=== PATIENT | female | born 1995 | race Caucasian/White ===

== ENCOUNTER 2018-04-02 01:27 | Emergency (ER) | payer OTHER, SELFPAY ==
[2018-04-02 01:28] VITALS: BP 112/80; PULSE 57; RESP 18; TEMP 36.3; O2SAT 100; BMI 26.3
--- NOTE | 2018-04-02 01:45 | CT_ITS ---
STUDY: CT ABDOMEN AND PELVIS WITH CONTRAST REASON FOR EXAM: Female, 22 years old. Severe epigastric pain. RADIATION DOSAGE (If Supplied By Facility): CTDIvol = ( 8.03 ) mGy, DLP = ( 653.83 ) mGycm TECHNIQUE: Transaxial images were obtained from the dome of the diaphragm to the symphysis pubis without oral contrast. 100ML ml of Isovue 300 contrast was administered. Sagittal and coronal images were reconstructed. Individualized dose optimization techniques were used for this CT. COMPARISON: 09/11/2013. FINDINGS: The visualized lung bases are unremarkable. The visualized portions of the heart are within normal limits. Normal liver. Normal gallbladder and extrahepatic biliary system. Normal spleen. Normal pancreas. Normal bilateral adrenal glands. Normal right kidney. Normal left kidney. The stomach is markedly distended. There are nonspecific fluid-filled small bowel loops. There is no evidence of small bowel obstruction. There is fecal retention. The appendix is visualized and appears normal. Normal abdominal aorta. Normal inferior vena cava. Normal retroperitoneum. Normal urinary bladder. There is nonspecific air in the region of the cervix. There may be very small umbilical hernia containing fat. Normal osseous structures. CT/Abdomen/Pelvis W IV Cont ONLY IMPRESSION: Distended stomach. Nonspecific fluid-filled small bowel loops without evidence of small bowel obstruction. Enteritis or mild ileus are possible. Electronically Signed: Eduard Phelps MD at 3:36 EDT Tel , Service support ,
[2018-04-02 02:00] LABS: Absolute Lymphocyte Count 1.91 X10^3/ul (0.83-4.51); Absolute Neutrophil Count 9.5 X10^3/uL (2.0-7.7); Basophil# 0.02 X10^3/uL; Basophil% 0.2 % (0-1); Eosinophil# 0.14 X10^3/uL; Eosinophils% 1.2 % (0-5); Hematocrit 37.6 % (37-47); Hemoglobin 12.1 g/dl (12.0-15.0); Lymphocyte # 1.91 X10^3/ul (4.0); Lymphocyte % 15.8 % (19-41); Mean Corp Hgb Conc 32.2 g/gl (32-36); Monocyte# 0.59 X10^3/uL; Monocyte% 4.9 % (0-10); Neutrophil # 9.45 X10^3/uL (2.7-7.7); Neutrophil % 77.8 % (47-70); POSITIVE COUNT NO; POSITIVE DIFFERENTIAL NO; POSITIVE MORPHOLOGY NO; Platelet Count 278 K/mm3 (150-450); RBC Distribution Width CV 14.1 % (11.6-14.6); Red Blood Count 4.32 M/mm3 (4.2-5.4); White Blood Count 12.1 K/mm3 (4.4-11.0)
[2018-04-02] MEDS: 0.9% Normal Saline 1,000 ML 1000 ML IV (02:00)
[2018-04-02] MEDS: Ondansetron 4 MG/2 ML Vial IV (02:00)
[2018-04-02] MEDS: Ketorolac 30 MG/ML Syringe IV (02:00)
[2018-04-02] MEDS: Morphine 4 MG/ML Syringe IV (02:00)
[2018-04-02 02:18] LABS: AST(SGOT) 148 U/L (15-37); Alanine Aminotransfer ALT/SGPT 104 U/L (13-56); Albumin, Serum 3.5 g/dL (3.2-5.0); Alkaline Phosphatase 90 U/L (45-117); Anion Gap 5 (5-15); BUN 11 mg/dL (7-18); Calcium,Total 8.4 mg/dL (8.5-10.1); Chloride 108 mmol/L (98-107); Creatinine, Serum 0.69 mg/dL (0.55-1.02); EST Glomerular Filtration Rate 112 mL/min (>60); Est Glom Filt Rate - Afr Amer 135 mL/min (>60); Globulin 3.5 g/dL (2.2-4.2); Glucose 96 mg/dL (74-106); Lipase 249 U/L (73-393); Potassium 3.7 mmol/L (3.5-5.1); Sodium Level 142 mmol/L (136-145)
[2018-04-02 02:29] LABS: Pregnancy, Serum, hCG Quali. NEGATIVE Negative (0-9 Nonpreg)
[2018-04-02 03:10] LABS: Mucous, Urine 0 SEEN /hpf (<or=2+); Red Blood Cells-Urine 0 SEEN /hpf (0-5)
[2018-04-02 03:16] LABS: Color, Urine Yellow (Yellow); Glucose, Dipstick Normal (Normal); Ketone-Dipstick Negative (Negative); Leukocyte Esterase-Dipstick 25 /ul (Negative); Nitrite-Dipstick Positive (Negative); Occult Blood-Urine Negative /ul (Negative); Protein-Dipstick 30 mg/dl (Negative); Specific Gravity, Urine 1.015 (1.002-1.030); Urine Bilirubin Dipstick Negative (Negative); Urine Clarity Cloudy (Clear); Urine Urobilinogen Normal (Normal)
[2018-04-02 03:24] LABS: Bacteria 3+ /hpf (None Seen); Squamous Epithelial Cells - UA 0-5 SEEN /hpf (5-10); White Blood Cells 0-5 SEEN /hpf (0-5)
--- NOTE | 2018-04-02 03:54 | ED.DCSUM_ITS ---
- ER Visit Summary Date of Service: 04/02/18 Chief Complaint: [Abdominal pain] History of Present Illness: The patient is a 22 F [who presents the emergency department with abdominal pain that started last night approximately 11 PM. It is sharp stabbing epigastric and bilateral upper quadrants. She has nausea and one episode of vomiting. Bowel movements have been normal. She had sweats with the pain. No urinary symptoms. Last menstrual cycle was 1 week ago. Has a history of gallstones and she has been seen 3 times for similar pain episodes at [facility] and was referred to a surgeon but never followed up.] Physical Examination: [] WN WD NAD PERRL EOMI MMM NECK supple and nontender, no masses RRR no murmur rub or gallop, no peripheral edema, symmetric radial pulses CTAB no respiratory distress ABDOMEN is tender in the epigastric and right upper quadrant positive Torres sign she has voluntary guarding, normal bowel sounds, no distension, no rebound SKIN is warm and dry no rashes mild diaphoresis Alert and Oriented x3, CN II-XII in tact, no motor or sensory deficits, gait normal No lymphadenopathy Test Results: [] Emergency Department Course and Treatment: [Patient was given morphine Zofran and Toradol. Her symptoms resolved. Screening labs show a mild leukocytosis at 12.1. AST and ALT were mildly elevated at 104 and 148. Alk phos was normal. Urine showed positive nitrites and 3+ bacteria but no white blood cells or red blood cells. Patient is not having any urinary symptoms. Urine culture was sent. On reevaluation the patient's symptoms had completely resolved. Her abdomen was soft and nontender. CT of the abdomen and pelvis was obtained and ultrasound was not available and showed significant distention of the stomach and nonspecific fluid within small bowel consistent with mild ileus versus enteritis. Patient will be started on Keflex for bacteria and was given a referral to follow-up with Dr. Argueta. CT of the gallbladder showed no obvious abnormality here. I do not think emergent ultrasound on top a CT is indicated as the patient's symptoms are resolved however I did encourage the importance of follow-up she understands if she gets fever or worsening pain again they should return to the emergency department.] Treatment Plan: [] Disposition: [Discharge] Impression: [Abdominal pain 2 bacturia] This note was generated with [employer] software. It may contain incorrect words, spelling, and punctuation that were not noted in review of the chart prior to signing ED Disposition - Plan for ED Patient: Chief Complaint: Nausea/Vomiting Referrals: NOT,DEFINED [Primary Care Provider] -
--- NOTE | 2018-04-02 03:56 | ED.DEP ---
ED Disposition - Plan for ED Patient: Chief Complaint: Nausea/Vomiting Instructions: ED Abdominal Pain Unkn Cause Prescriptions: Cephalexin [Keflex] 500 mg PO Q8 #21 capsule Metoclopramide [Reglan] 10 mg PO TID PRN #10 tablet PRN Reason: Nausea Referrals: Joe Argueta MD [STAFF PHYSICIAN] - 3-5 Days
[2018-04-02 04:06] VITALS: BP 100/73; PULSE 54; PULSE 55; RESP 18; O2SAT 100
[2018-04-02] MEDS: HYDROcodone Bitartrate/Apap 5/325 Tablet PO (04:07)
== END 2018-04-02 04:09 | disposition home or self-care (01) ==
PROVIDERS: Emergency Provider Emergency Medicine
DX: R10.13 Epigastric pain (principal); R10.12 Left upper quadrant pain; R10.11 Right upper quadrant pain; R11.2 Nausea with vomiting, unspecified; R82.71 Bacteriuria
CPT/HCPCS: 74177; 80053; 81001; 83690; 84703; 85025; 87086; 87088; 87186; 96361; 96374; 96375; 99284; J7030; Q9967; A4216; J2405

== ENCOUNTER 2018-07-29 09:03 | Emergency (ER) | payer OTHER, SELFPAY ==
[2018-07-29 09:04] VITALS: BP 133/83; PULSE 58; RESP 18; TEMP 36.6; O2SAT 99; BMI 30.9
--- NOTE | 2018-07-29 09:14 | US_ITS ---
STUDY: ABDOMINAL ULTRASOUND - RIGHT UPPER QUADRANT REASON FOR VISIT: Female, 23 years old. Right upper quadrant pain. TECHNIQUE: Ultrasound evaluation of the right upper quadrant was performed with real-time and static levi-scale imaging. TECHNICAL QUALITY: Limited. Examination limited by bowel gas. COMPARISON: None. FINDINGS: Liver: The liver is slightly enlarged and measures 18.1 cm. There is normal echogenicity of the liver. The bile ducts are within normal limits. There is hepatic color flow. The direction of portal flow is hepatopetal. There is no demonstrated mass lesion. Gallbladder: Normal distended gallbladder. The gallbladder wall measures 3.0 mm. There is a negative sonographic Torres's sign. There is no pericholecystic fluid. There are multiple echogenic structures within the gallbladder, consistent with multiple gallstones. A small amount of sludge is seen within the gallbladder lumen. Common Bile Duct (C.B.D.): The common bile duct measures mm. Pancreas: Normal size of the head, body and tail of the pancreas. There is normal echogenicity of the pancreas. There is no demonstrated pancreatic mass or cyst. Right Kidney: Normal size of the right kidney. The right kidney measures 11.6 cm x 4.7 cm x 4.1 cm. Normal renal cortex. The right cortex measures 1.3 cm. There is no demonstrated renal mass or cyst. There is no right hydronephrosis. US/Gallbladder IMPRESSION: Mild hepatomegaly. Multiple gallstones. Electronically Signed: Stevie Goel MD at 10:45 EDT Tel [phone], Service support ,
--- NOTE | 2018-07-29 09:18 | ED.DCSUM_ITS ---
- ER Visit Summary Date of Service: 07/29/18 Chief Complaint: Pain History of Present Illness: The patient is a 23 F with pain in her right upper quadrant. The pain does not radiate. It started relatively suddenly at 3 AM and has been constant. It feels sharp. Nothing seems to bring it on or make it worse. Nothing seems to make it better. Associated with nausea, but denies other symptoms like fever or jaundice. She has a history of gallstones and similar pain with gallstones in the past. She has not established with a surgeon for this. Denies any abdominal surgeries. Denies any other medical history. Physical Examination: Afebrile and vital signs unremarkable except for heart rate of 58. Patient is tearful and appears uncomfortable. Heart regular. Lungs clear. Abdomen tender in the right upper quadrant. No guarding or rebound. Skin normal in color without pallor or jaundice. Patient is alert and oriented. Test Results: Laboratory studies, urinalysis, and right upper quadrant ultrasound are pending. Emergency Department Course and Treatment: Treated with fluids, morphine, and Zofran while awaiting results. CBC unremarkable. CMP also unremarkable. Lipase normal. test negat marta. Urinalysis unremarkable. Ultrasound shows mild hepatomegaly and multiple gallstones but no evidence of cholecystitis. Patient required multiple pain medications. I advised that she may need a dmission for pain control and surgical consultation. Patient would like to go home and follow-up as an outpatient. At this time, her pain is controlled after a second dose of pain medication. She is not septic. I believe she is appropriate for outpatient follow-up. I advised her to return if she has any new or worsening issues. She was given a prescription for Percocet as well as Zofran and referred to Dr. Argueta who is on-call. Treatment Plan: Above Disposition: Discharged Impression: 1. Biliary colic This note was generated with [employer] dictation software. It may contain incorrect words, spelling, and punctuation that were not noted in review of the chart prior to signing ED Disposition - Plan for ED Patient: Chief Complaint: Abd Pain Referrals: Lenny Edmond MD [Primary Care Provider] -
[2018-07-29] MEDS: Ondansetron 4 MG/2 ML Vial IV (09:26)
[2018-07-29] MEDS: Morphine 4 MG/ML Syringe IV (09:26)
[2018-07-29] MEDS: 0.9% Normal Saline 1,000 ML 1000 ML IV (09:27)
[2018-07-29 09:32] LABS: Absolute Lymphocyte Count 1.83 X10^3/ul (0.83-4.51); Absolute Neutrophil Count 7.7 X10^3/uL (2.0-7.7); Basophil# 0.04 X10^3/uL; Basophil% 0.4 % (0-1); Eosinophil# 0.32 X10^3/uL; Eosinophils% 3.1 % (0-5); Hematocrit 39.4 % (37-47); Hemoglobin 13.2 g/dl (12.0-15.0); Lymphocyte # 1.83 X10^3/ul (4.0); Lymphocyte % 17.6 % (19-41); Mean Corp Hgb Conc 33.5 g/gl (32-36); Mean Corpuscular Hgb 29.1 pg (27.0-32.0); Mean Corpuscular Volume 86.8 fL (81-99); Mean Platelet Vol. 10.2 fl (6.2-12.0); Monocyte# 0.52 X10^3/uL; Neutrophil # 7.68 X10^3/uL (2.7-7.7); Neutrophil % 73.7 % (47-70); Platelet Count 324 K/mm3 (150-450); RBC Distribution Width CV 12.8 % (11.6-14.6); Red Blood Count 4.54 M/mm3 (4.2-5.4); White Blood Count 10.4 K/mm3 (4.4-11.0)
[2018-07-29 09:35] LABS: POSITIVE COUNT NO; POSITIVE DIFFERENTIAL NO; POSITIVE MORPHOLOGY NO
[2018-07-29 09:41] LABS: ALB/GLOB Ratio 1.1 RATIO (0.9-2.4); AST(SGOT) 13 U/L (15-37); Alanine Aminotransfer ALT/SGPT 21 U/L (13-56); Albumin, Serum 4.1 g/dL (3.2-5.0); Alkaline Phosphatase 55 U/L (45-117); Anion Gap 9 (5-15); BUN 13 mg/dL (7-18); BUN/Creat Ratio 15.6 RATIO (10-20); Calcium,Total 9.4 mg/dL (8.5-10.1); Chloride 103 mmol/L (98-107); Creatinine, Serum 0.84 mg/dL (0.55-1.02); EST Glomerular Filtration Rate 89 mL/min (>60); Est Glom Filt Rate - Afr Amer 108 mL/min (>60); Estimated Creatinine Clearance 89.18 ml/min; Globulin 3.9 g/dL (2.2-4.2); Glucose 79 mg/dL (74-106); Lipase 139 U/L (73-393); Potassium 3.4 mmol/L (3.5-5.1); Sodium Level 141 mmol/L (136-145)
[2018-07-29 09:45] LABS: Pregnancy, Serum, hCG Quali. NEGATIVE Negative (0-9 Nonpreg)
[2018-07-29] MEDS: HYDROmorphone 1 MG/ML Syringe IV (10:41)
[2018-07-29 11:18] LABS: Bacteria 0 SEEN /hpf (None Seen); Mucous, Urine 0 SEEN /hpf (<or=2+)
[2018-07-29 11:22] LABS: Color, Urine Yellow (Yellow); Glucose, Dipstick Normal (Normal); Ketone-Dipstick Negative (Negative); Leukocyte Esterase-Dipstick 25 /ul (Negative); Nitrite-Dipstick Negative (Negative); Occult Blood-Urine 50 /ul (Negative); Protein-Dipstick Negative (Negative); Specific Gravity, Urine 1.025 (1.002-1.030); Urine Bilirubin Dipstick Negative (Negative); Urine Clarity Sl. Cloudy (Clear); Urine Urobilinogen Normal (Normal)
[2018-07-29 11:30] LABS: Red Blood Cells-Urine 0-5 SEEN /hpf (0-5); Squamous Epithelial Cells - UA 0-5 SEEN /hpf (5-10); White Blood Cells 0-5 SEEN /hpf (0-5)
--- NOTE | 2018-07-29 12:17 | ED.DEP ---
ED Disposition - Plan for ED Patient: Chief Complaint: Abd Pain Instructions: What are Gallstones? Prescriptions: Oxycodone HCl/Acetaminophen [Percocet 5/325] 1 tab PO Q6H PRN PRN 3 Days #12 tab PRN Reason: Pain Ondansetron [Zofran Odt] 4 mg PO Q8H PRN PRN #10 tab PRN Reason: Nausea Referrals: Joe Argueta MD [STAFF PHYSICIAN] -
[2018-07-29 12:39] VITALS: BP 109/70; PULSE 53; RESP 16; O2SAT 98
== END 2018-07-29 12:40 | disposition home or self-care (01) ==
PROVIDERS: Emergency Provider Emergency Medicine; Family Provider Family Medicine; PCP Family Medicine
DX: K80.20 Calculus of gallbladder without cholecystitis without obstruction (principal); R16.0 Hepatomegaly, not elsewhere classified
CPT/HCPCS: 76705; 80053; 81001; 83690; 84703; 85025; 96361; 96374; 96375; 99283; J7030; A4216; J2405

== ENCOUNTER 2018-08-17 11:37 | Day surgery (SDC) | payer OTHER, SELFPAY ==
--- NOTE | 2018-08-17 | GALL_PTH ---
PATIENT: JESSICA IRELAND [place] [facility] [place][id number] AGE/SX: 23/F ROOM: RE08/17/[address]: Dr. Joe Argueta MD : [id number] BED: DIS: 08/17/2018 SPEC #: [id number] RECD: 08/17/18 16:13 STATUS: LULU REKaycee #: [id number] POLLY: 08/17/18 00:[address]: Joe Argueta DEPT: SURGICAL PATHOLOGY RECD BY: Favian Martinez ENTERED: 08/18/18 08:10 SP TYPE: VINCENT PLATT DR: Dr. Lenny Edmond MD Tissues: Gallbladder, NOS Procedures: Surgery Specimen Level III HEADER OPERATION: Laparoscopic cholecystectomy PRE-OP DIAGNOSIS: Chronic cholecystitis with calculus TISSUE SUBMITTED: Gallbladder MICROSCOPIC DIAGNOSIS Gallbladder: Chronic cholecystitis and cholelithiasis. SJ:brenton 08/19/18 MICROSCOPIC DESCRIPTION Slides are reviewed. GROSS DESCRIPTION Received is one container labeled with the patient's name and designated gallbladder. The specimen consists of a gallbladder measuring 8.5 cm in length and up to 3.5 cm in diameter. The external surface is pink-escalante, smooth and glistening for the most part. Focally it is granular, hemorrhagic and contains cautery artifact. The gallbladder contains thick, escalante mucoid bile and multiple mulberry stones measuring in aggregate 3 x 3 x 1.5 cm and 0.3 to 1.5 cm in greatest dimension. The mucosa is bile-stained and without any mass lesions. The gallbladder wall measures up to 0.2 cm in thickness. Atlassian Administrator sections from the gallbladder and the cystic duct are submitted in one cassette. / SJ:brenton 08/18/18 TC:3 CPT: 02443
--- NOTE | 2018-08-17 11:50 | EKG12_ITS ---
Test Reason : PRE OP Blood Pressure : / mmHG Vent. Rate : 053 BPM Atrial Rate : 053 BPM P-R Int : 130 ms QRS Dur : 088 ms QT Int : 408 ms P-R-T Axes : 006 048 025 degrees QTc Int : 382 ms Sinus bradycardia Otherwise normal ECG Confirmed by EDUARDO NAJERA, VAL ([id number]), acquisitions editor SHERITA ROCHE ([id number]) on 08/20/2018 1:13:06 PM Referred By: Joe Argueta Confirmed By:VAL CLARK MD
[2018-08-17 12:06] LABS: Internal QC Validated? YES +Cl - CLEAR BKGD; Pregnancy, Urine Negative Negative
[2018-08-17 12:10] VITALS: BP 113/63; PULSE 53; RESP 14; TEMP 37.4; O2SAT 100; BMI 31.6
--- NOTE | 2018-08-17 13:50 | RAD_ITS ---
CLINICAL HISTORY: Female, 23 years old. Cholelithiasis. PROCEDURE: CHOLANGIOGRAM - interoperative FLUOROSCOPY TIME (if supplied): ( ) minutes/seconds TECHNIQUE: 89 intraoperative images were performed and presented for interpretation. COMPARISON: Abdominal ultrasound, July 29, 2018. FINDINGS: The provided images demonstrate a catheter within the cystic duct stump. There is injection of contrast within the CBD which is of normal caliber and distensibility. There are no filling defects. There is free spillage of contrast into the duodenum. Later images demonstrate reflux of contrast into the common hepatic and central intrahepatic biliary ducts. These are normal diameter. There is no evidence of stricture or filling defect. Please refer to the operative report for further details. RAD/Cholangiogram/ O R,Initial IMPRESSION: Intraoperative cholangiogram. Electronically Signed: Drake Jordan MD at 17:19 EDT , Service support ,
--- NOTE | 2018-08-17 14:20 | DCINST_ITS ---
Discharge Diet: Light diet - advance as tolerated - if you have questions about your diet instructions, please talk to you doctor. Discharge Activity: May Not Drive - for 1 week or while taking narcotic pain medicine. May shower in (days): 1 Lifting Restrictions: 10 pounds Call your doctor if your incision/area has: Continuous Slow Oozing, Sudden Increased Bleeding, Increased Pain/ Swelling, Increased Redness, Foul Smelling Discharge Call your doctor if you observe: Fever of 101 or Higher Suture Line Care: Avoid Pulling/Pushing, Avoid Pinching/Bending Additional Dressing/Incision Instructions:: Change or remove dressing in 4 days. Leave steri-strips in place for 1 week. Allergies/Adverse Reactions: Allergies No Known Allergies Allergy (Verified 08/14/18 14:17) Medications to take at Discharge Hydrocodone Bitart/Apap 5-325 [[place] 5MG-325MG] 1 tablet PO Q4H PRN PRN 3 Days #10 tablet 08/17/18 The following prescriptions were given: Hydrocodone Bitart/Apap 5-325 [[place] 5MG-325MG] 1 tablet PO Q4H PRN PRN 3 Days #10 tablet PRN Reason: Pain Primary Care Physician: Lenny Edmond MD [Primary Care Provider] - Test Results: Test results from this visit will be discussed in further detail at your follow- up appointment, if applicable. Please Follow Up With: Joe Argueta MD - [phone] When: Call to make an appointment to be seen in about 10 days.
[2018-08-17] MEDS: Cefazolin 2 GM in 0.9% Normal Saline 100 ML IV (14:28)
--- NOTE | 2018-08-17 15:33 | PCM.OPRPT ---
Problem List (1) Chronic cholecystitis with calculus Status: Acute Report of Operation Date of Procedure: 08/17/18 Pre-Operative Diagnosis: Chronic cholecystitis cholelithiasis Post-Operative Diagnosis: Same Surgery/Procedure Performed:: Laparoscopic cholecystectomy with cholangiography Description of Surgical Findings:: Timeout and informed consent was obtained. 23-year-old female taken out from placement table underwent general endotracheal intubation anesthesia. Ancef 2 g given intravenously preoperatively. The abdomen sterilely prepped and draped. 0.5% Marcaine was used as local anesthetic. Throughout the procedure total 30 cc was used. Skin sites were pre-anesthetized. A vertical infraumbilical incision was created. Holding sutures of 0 Vicryl placed. Varies needle inserted. Saline drop test performed. The abdomen was insufflated with CO2 to a pressure of 10 mmHg pressure. Dagmar trocar inserted. 10 lap scope inserted. No concerning trocar injuries. Under visualization there was no evidence any trocar injuries. The abdomen is rapidly inspected no evidence of any superficial abnormalities. Five-minute trochars were placed in the epigastric mid abdomen right upper quadrant. The gallbladder was distracted. Blunt dissection was instituted the infundibulum until clearly the cystic duct cystic artery were clearly identified. A Hem-o-kevin clip was placed on the cystic duct stump incision made in the duct and through a 14-gauge Angiocath the cholangiogram catheter was inserted. Fluoroscopically controlled cholangiograms were obtained demonstrating normal ductal anatomy with free flow into the small bowel. The cholangiogram catheter was removed and an extra-large Hem-o-kevin clip was placed on the cystic duct stump with the addition of a 5 mm clip. The duct was transected inspected the clips appeared to have good position. There has been no bile or stone leak. The cystic artery was clipped twice proximally prior to transecting it. The gallbladder was dissected free from the liver bed. Increased vascular supply from the gallbladder peritoneum and from the liver bed was secured with Hem-o-kevin clips. Gallbladder was completely released. The liver bed was inspected was noted be completely hemostatic. The gallbladder was placed in a retrieval bag. The right upper quadrant was irrigated and aspirated free of excess fluid. The gallbladder was exited at the umbilicus. The fascia at the umbilicus to the patient's body habitus was closed using a grainy needle and 0 Vicryl in a figure 8 suture. There appeared to be good closure through and through was it was carefully inspected intra-abdominally. Then the remaining trochars were removed under visualization. The abdomen was allowed to deflate of the CO2. Skin edges proximate interrupted 4 Monocryl subdermal stitches. Steri-Strips and Telfa and OpSite dressings were applied. Sponge and needle and instrument counts were reported to the surgeon to be correct. Specimens gallbladder. Drains none. Blood loss minimal. The patient was taken to the recovery area in satisfactory condition. Joe Argueta M.D., F.A.C.S. Type of Anesthesia:: General Anesthesiologist: Stacia Ruffin
[2018-08-17] MEDS: Bupivacaine Mpf 0.5% 30 ML VIAL (15:42)
[2018-08-17 15:56] VITALS: BP 101/62; BP 113/63; PULSE 64; RESP 16; TEMP 36.4; O2SAT 94
[2018-08-17 16:00] VITALS: BP 108/75; BP 113/63; PULSE 60; RESP 16; O2SAT 92
[2018-08-17 16:15] VITALS: BP 113/63; BP 95/70; PULSE 59; RESP 16; O2SAT 95
[2018-08-17 16:22] VITALS: BP 105/72; BP 113/63; PULSE 62; RESP 16; TEMP 36.3; O2SAT 94
[2018-08-17] MEDS: HYDROcodone Bitartrate/Apap 5/325 Tablet PO (16:44)
[2018-08-17 17:35] VITALS: BP 107/73; BP 113/63; PULSE 53; RESP 14; TEMP 36.7; O2SAT 97
== END 2018-08-17 17:36 | disposition home or self-care (01) ==
LOC: SDC 11:40 → AC 14:03
PROVIDERS: Family Provider Family Medicine; PCP Family Medicine; Referring Provider Surgery; Visit Provider Surgery
PROC: (CPT 47610; principal; 2018-08-17 13:30)
DX: K80.10 Calculus of gallbladder with chronic cholecystitis without obstruction (principal); K21.9 Gastro-esophageal reflux disease without esophagitis; Z79.899 Other long term (current) drug therapy
CPT/HCPCS: 00790; 47563; 74300; 76000; 81025; 88304; 93005; J7120; J2405

== ENCOUNTER 2018-12-11 21:33 | Emergency (ER) | payer OTHER, SELFPAY ==
[2018-12-11 21:35] VITALS: BP 121/78; PULSE 71; RESP 18; TEMP 36.5; O2SAT 98; BMI 32.7
--- NOTE | 2018-12-11 21:50 | CM.ED ---
SOCIAL WORK NOTE PT PRESENTS PINK SLIPPED BY PD FOR SUICIDAL IDEATION. DISCUSSED WITH DR. PHILIP. CRISIS TO EVALUATE. PERRI CONSTANTINO, NET MAKER, EXCELLENCE MANAGER.
[2018-12-11 22:34] VITALS: RESP 18
[2018-12-11 22:41] LABS: Absolute Lymphocyte Count 2.36 X10^3/ul (0.83-4.51); Absolute Neutrophil Count 4.5 X10^3/uL (2.0-7.7); Basophil# 0.02 X10^3/uL; Basophil% 0.3 % (0-1); Eosinophil# 0.25 X10^3/uL; Eosinophils% 3.2 % (0-5); Hematocrit 38.6 % (37-47); Hemoglobin 12.7 g/dl (12.0-15.0); Lymphocyte # 2.36 X10^3/ul (4.0); Lymphocyte % 30.6 % (19-41); Mean Corp Hgb Conc 32.9 g/gl (32-36); Mean Corpuscular Hgb 28.3 pg (27.0-32.0); Mean Corpuscular Volume 86.2 fL (81-99); Monocyte# 0.52 X10^3/uL; Monocyte% 6.8 % (0-10); Neutrophil # 4.54 X10^3/uL (2.7-7.7); POSITIVE COUNT NO; POSITIVE DIFFERENTIAL NO; POSITIVE MORPHOLOGY NO; Platelet Count 304 K/mm3 (150-450); RBC Distribution Width CV 12.8 % (11.6-14.6); RBC Distribution Width SD 40.4 fl (35.1-43.9); Red Blood Count 4.48 M/mm3 (4.2-5.4); White Blood Count 7.7 K/mm3 (4.4-11.0)
[2018-12-11 22:50] LABS: Anion Gap 6 (5-15); BUN 9 mg/dL (7-18); BUN/Creat Ratio 16.3 RATIO (10-20); Calcium,Total 8.2 mg/dL (8.5-10.1); Chloride 108 mmol/L (98-107); Creatinine, Serum 0.55 mg/dL (0.55-1.02); EST Glomerular Filtration Rate 143 mL/min (>60); Est Glom Filt Rate - Afr Amer 173 mL/min (>60); Glucose 96 mg/dL (74-106); Sodium Level 138 mmol/L (136-145)
[2018-12-11 23:00] VITALS: RESP 14
[2018-12-11 23:15] LABS: Amphetamine Urine VISTA POSITIVE (<1000 ng/mL); Barbiturate Urine VISTA NEGATIVE (< 200 ng/mL); Benzodiazepine Urine VISTA NEGATIVE (< 200 ng/mL); Cocaine Urine VISTA NEGATIVE (< 300 ng/mL); Ecstacy Urine VISTA NEGATIVE (< 500 ng/mL); Methadone Urine VISTA NEGATIVE (< 300 ng/mL); PCP Urine VISTA NEGATIVE (< 25 ng/mL); THC Urine VISTA POSITIVE (< 50 ng/mL); Vista UDS pH Range 5
--- NOTE | 2018-12-11 23:30 | ED.RN ---
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
[2018-12-11 23:47] LABS: Pregnancy, Serum, hCG Quali. NEGATIVE Negative (0-9 Nonpreg)
--- NOTE | 2018-12-11 23:56 | ED.RN ---
FELY CALLED BACK, SHE WILL BE IN
[2018-12-12] VITALS: RESP 16
--- NOTE | 2018-12-12 00:45 | ED.VISSUMM ---
- ER Visit Summary Date of Service: 12/12/18 Chief Complaint: Reported suicidal ideation History of Present Illness: The patient is a 23 F presenting per police for suicidal ideation. Patient states that she has been fighting with her boyfriend. Today police were called. Her boyfriend stated that she had made a threat to kill herself. Patient denies this. She states she does self-harm to her left leg. She was not trying to kill herself. She has a history of cutting. Tetanus is up-to-date. She states her boyfriend was trying to get back at her by making these comments. She admits to marijuana and heroin use today. Physical Examination: Vitals are stable. Patient is afebrile. Alert no acute distress. HEENT exam is unremarkable. Neck is supple. Lungs are clear and equal bilaterally. Heart is regular rate and rhythm. Abdomen is soft nontender nondistended. Extremities superficial abrasions LLE Skin is warm and dry. No focal neurologic deficit. Depressed affect Remainder of exam is unremarkable. Emergency Department Course and Treatment: CBC, chemistries unremarkable. HCG negative. Tox positive for opiates, amphetamines, THC. Alcohol negative. Discussed with the counseling center for evaluation. Disposition: Per counseling center Impression: Reported suicidal ideation This note was generated with [employer] dictation software. It may contain incorrect words, spelling, and punctuation that were not noted in review of the chart prior to signing ED Disposition - Plan for ED Patient: Referrals: Lenny Edmond MD [Primary Care Provider] -
[2018-12-12 01:00] VITALS: RESP 14
--- NOTE | 2018-12-12 01:43 | ED.RN ---
THIS RN SPOKE WITH GONZALO AT [place] AND WAS INFORMED JESSICA WOULD NOT BE RETURNING TO WORK TONIGHT BUT WOULD BE THERE FOR HER SHIFT O FRIDAY
--- NOTE | 2018-12-12 01:48 | ED.VISSUMM ---
- ER Visit Summary Date of Service: 12/12/18 Chief Complaint: [] History of Present Illness: The patient is a 23 F [] Physical Examination: [] Test Results: [] Emergency Department Course and Treatment: [] Treatment Plan: [] Disposition: [] Impression: [] This note was generated with [employer] dictation software. It may contain incorrect words, spelling, and punctuation that were not noted in review of the chart prior to signing ED Disposition - Plan for ED Patient: Instructions: ED Depression Referrals: Counseling,Center [GROUP OF PHYSICIANS] -
--- NOTE | 2018-12-12 02:06 | ED.RN ---
pt states she talked to her uncle and he is on his way up to the hospital
[2018-12-12 02:07] VITALS: BP 126/85; PULSE 61; RESP 14; O2SAT 100
== END 2018-12-12 02:38 | disposition home or self-care (01) ==
PROVIDERS: Emergency Provider Emergency Medicine; Family Provider Family Medicine; PCP Family Medicine
DX: R45.851 Suicidal ideations (principal); S80.812A Abrasion, left lower leg, initial encounter; X58.XXXA Exposure to other specified factors, initial encounter; Y93.9 Activity, unspecified; Y92.9 Unspecified place or not applicable; Y99.9 Unspecified external cause status; Z91.5 Personal history of self-harm
CPT/HCPCS: 80048; 80307; 80320; 84703; 85025; 99283; G0480

== ENCOUNTER 2019-07-10 19:32 | Emergency (ER) | payer OTHER, SELFPAY ==
[2019-07-10 19:33] VITALS: BP 105/76; PULSE 75; RESP 15; TEMP 37.2; O2SAT 99; BMI 32.5
--- NOTE | 2019-07-10 19:38 | ED.RN ---
WHILE TRIAGING PATIENT, PATIENT DECIDED SHE DIDN'T WANT TO BE SEEN.
--- NOTE | 2019-07-10 19:50 | ED.RN ---
THIS NURSE CONTACTED THE [facility] TO INFORM THEM THE PT HAS DECIDED NOT TO BE SEEN AND HAS LEFT THE HOSPITAL
== END 2019-07-10 19:38 | disposition left against medical advice (07) ==
LOC: ED 19:45
PROVIDERS: Emergency Provider Emergency Medicine; Family Provider Family Medicine; PCP Family Medicine
DX: R07.89 Other chest pain (principal)

== ENCOUNTER 2019-10-11 23:06 | Emergency (ER) | payer MEDICAID, SELFPAY ==
[2019-10-11 23:07] VITALS: BP 117/72; PULSE 110; RESP 15; TEMP 36.6; O2SAT 96; BMI 34.8
--- NOTE | 2019-10-11 23:43 | ED.DCSUM_ITS ---
- ER Visit Summary Date of Service: 10/11/19 Chief Complaint: Right foot pain History of Present Illness: The patient is a 24 F who [facility]. She is 20 weeks . She reports that she has pain to the bottom of her right foot that was present when she woke from a nap at 530 this afternoon. Says sharp pain is 10 on 10 with walking and 4-10 at rest. She is not taking anything for pain. She denies any trauma. No fall, MVA, or change in activity. Review of systems: General: No fever, chills, cold sweats. Cardiovascular: No chest pain, palpitations. Respiratory: No cough, shortness of breath, dyspnea on exertion. Gastrointestinal: No abdominal pain, nausea, vomiting, diarrhea, melena, or hematochezia. Genitourinary: No dysuria, frequency, hematuria. Skin: No rash. Neuro: No headache, numbness, weakness. Physical Examination: Vitals: Stable. Afebrile. General: Well-nourished and well-developed. Head: Normocephalic atraumatic. Neck: Supple, no lymphadenopathy. No JVD. Nontender. Cardiovascular: Regular rate and rhythm. No murmurs. Respiratory: No respiratory distress. Clear to auscultation bilaterally. Abdominal: Soft, nontender, nondistended, normal bowel sounds. No guarding, rebound, or peritoneal signs. Back: Nontender. Extremities: Moderate diffuse tenderness outpatient over the plantar surface of her right foot. No contusion or soft tissue swelling. She has a 2+ dorsalis pedis pulse. Skin: Normal color, no rash. Neurologic: Alert and oriented ?3. Cranial nerves II through XII are intact. Normal strength and sensation. Psych: Normal affect. Emergency Department Course and Treatment: Patient was treated with Tylenol. She is resting comfortably. Treatment Plan: Patient be discharged instructions use Tylenol for pain. She is placed in a walking boot. I did discuss symptomatic care plantar fasciitis with her. Follow-up Dr. Frey in 1 week if not improving. Return to the emergency department for any worsening symptoms. Disposition: To home in improved and stable condition. Impression: 1. Plantar fasciitis on right. 2. Second trimester . This note was generated with [employer]ation software. It may contain incorrect words, spelling, and punctuation that were not noted in review of the chart prior to signing ED Disposition - Plan for ED Patient: Disposition: Home or Assisted Living Instructions: Plantar Fasciitis Referrals: Drake Frey DPM [STAFF PHYSICIAN] - 1 Week if not improving
[2019-10-11] MEDS: Acetaminophen 500 MG Tablet 1000 MG PO (23:57)
== END 2019-10-12 00:18 | disposition home or self-care (01) ==
PROVIDERS: Emergency Provider Emergency Medicine; Family Provider Nurse Practitioner Family; PCP Nurse Practitioner Family
DX: O99.89 Other specified diseases and conditions complicating pregnancy, childbirth and the puerperium (principal); M72.2 Plantar fascial fibromatosis; Z3A.20 20 weeks gestation of pregnancy
CPT/HCPCS: 99283

== ENCOUNTER 2019-10-15 10:30 | Inpatient (IN) | payer MEDICAID, SELFPAY ==
[2019-10-15] VITALS (7 sets, daily range): BP systolic 107–139; BP diastolic 54–73; PULSE 63–122; RESP 18–34; TEMP 36.2–37.3; O2SAT 92–98; BMI 34.8; BMI 36.9
--- NOTE | 2019-10-15 11:04 | VDLE_ITS ---
Reason For Study: Chest pain RIGHT LEFT GSV is normal. GSV is normal. CFV is compressible, spontaneous, phasic, CFV is compressible, spontaneous, phasic, competent and demonstrates normal competent, and demonstrates normal augmentation. augmentation. FV is compressible, spontaneous, phasic, FV is compressible, spontaneous, phasic, competent and demonstrates normal competent and demonstrates normal augmentation. augmentation. POP V is compressible, spontaneous, phasic, POP V is compressible, spontaneous, phasic, competent and demonstrates normal competent and demonstrates normal augmentation. augmentation. T/P Trunk is compressible. T/P Trunk is compressible. PTV is compressible. PTV is compressible. RT PerV is compressible. LT PerV is compressible. Procedure Exam performed portable in ED. Unale to visualize SFJ due to pt positioning, pt unable to lay back. A preliminary report was called and/or faxed to [facility]. Interpretation Summary No evidence for acute deep venous thrombosis bilateral lower extremities with patent and compressible bilateral great saphenous veins. Note the limitation of being unable to visualize the saphenofemoral junction due to patient positioning. Otherwise the procedure was performed per protocol Ordering Physician: Prasanth Sky Referring Physician: Julissa Dominguez Performed By: Carla Jordan RVT
--- NOTE | 2019-10-15 11:04 | RAD_ITS ---
STUDY: X-RAY - LEFT HAND REASON FOR EXAM: Female, 24 years old. Swelling. No known injury. TECHNIQUE: 3 view(s) of the hand. COMPARISON: None. FINDINGS: Normal radiocarpal articulation. Normal distal radioulnar joint. Normal visualized carpal bones. Normal carpal articulations Normal carpometacarpal articulation of the thumb. Normal second through fifth carpometacarpal joints. Normal metacarpi. Normal metacarpophalangeal joint of the thumb. Normal interphalangeal joint of the thumb. Normal proximal and distal phalanges of the thumb. Normal metacarpophalangeal joints of the second through fifth fingers. Normal proximal and distal interphalangeal joints of the second through fifth fingers. Normal phalanges of the second through fifth fingers. Diffuse soft tissue swelling overlying the second third fourth and fifth digits. RAD/Hand Min 3 Views IMPRESSION: Soft tissue swelling. Electronically Signed: Stevie Goel, at 11:30 EST , Service support ,
--- NOTE | 2019-10-15 11:04 | EKG12_ITS ---
Test Reason : COUGH Blood Pressure : / mmHG Vent. Rate : 118 BPM Atrial Rate : 118 BPM P-R Int : 116 ms QRS Dur : 078 ms QT Int : 300 ms P-R-T Axes : 013 006 008 degrees QTc Int : 420 ms Sinus tachycardia Minimal voltage criteria for LVH, may be normal variant Borderline ECG Confirmed by FAUSTINO ADAMS ([id number]), subeditor ELIAS RAMOS ([id number]) on 10/20/2019 1:09:24 PM Referred By: Dixie Buck Confirmed By:FAUSTINO ADAMS
--- NOTE | 2019-10-15 11:15 | RAD_ITS ---
STUDY: X-RAY CHEST REASON FOR EXAM: Female, 24 years old. Shortness of breath. TECHNIQUE: Single AP portable view of the chest. COMPARISON: None. FINDINGS: Limited inspiratory effort. Bilateral patchy airspace disease with blunting of both cost phrenic angles. This may represent either CHF or bilateral pneumonia. Follow-up is recommended. Normal size heart. Normal mediastinum and tg. Normal visualized pulmonary arteries. Normal visualized aortic arch and descending thoracic aorta. Normal visualized thoracic spine. Normal visualized ribs, clavicles, and shoulders. There is no demonstrated abnormality of the visualized soft tissue structures of the upper abdomen. RAD/Chest 1 View (Portable) IMPRESSION: Findings suggestive of CHF or bilateral pneumonia. Electronically Signed: Stevie Goel, at 11:30 EST , Service support ,
[2019-10-15] MEDS: Morphine 4 MG/ML Syringe IV (11:50)
[2019-10-15] MEDS: Ondansetron 4 MG/2 ML Vial IV (11:50)
[2019-10-15 12:01] LABS: Absolute Lymphocyte Count 1.86 X10^3/uL (0.83-4.51); Absolute Neutrophil Count 14.8 X10^3/uL (2.0-7.7); Basophil# 0.05 X10^3/uL; Basophil% 0.3 % (0-1); Eosinophil# 0.23 X10^3/uL; Eosinophils% 1.3 % (0-5); Hemoglobin 10.8 g/dL (12.0-15.0); Lymphocyte # 1.86 X10^3/ul (4.0); Lymphocyte % 10.2 % (19-41); Mean Corp Hgb Conc 33.8 g/dL (32-36); Mean Corpuscular Hgb 27.9 pg (27.0-32.0); Mean Corpuscular Volume 82.7 fL (81-99); Mean Platelet Vol. 9.7 fl (6.2-12.0); Monocyte# 1.19 X10^3/uL; Monocyte% 6.5 % (0-10); NRBC Flagged by Analyzer 0 % (0-5); Neutrophil # 14.76 X10^3/uL (2.7-7.7); Neutrophil % 80.4 % (47-70); Platelet Count 333 K/mm3 (150-450); RBC Distribution Width CV 14.5 % (11.6-14.6); RBC Distribution Width SD 43.2 fl (35.1-43.9); Red Blood Count 3.87 M/mm3 (4.2-5.4); White Blood Count 18.3 K/mm3 (4.4-11.0)
[2019-10-15 12:19] LABS: ALB/GLOB Ratio 0.5 RATIO (0.9-2.4); AST(SGOT) 41 U/L (15-37); Alanine Aminotransfer ALT/SGPT 122 U/L (13-56); Albumin, Serum 2.3 g/dL (3.2-5.0); Alkaline Phosphatase 169 U/L (45-117); Anion Gap 5 (5-15); BUN 5 mg/dL (7-18); BUN/Creat Ratio 9.9 RATIO (10-20); Calcium,Total 8.4 mg/dL (8.5-10.1); Chloride 96 mmol/L (98-107); EST Glomerular Filtration Rate 158 mL/min (>60); Est Glom Filt Rate - Afr Amer 191 mL/min (>60); Estimated Creatinine Clearance 148.53 ml/min; Glucose 88 mg/dL (74-106); Potassium 3.8 mmol/L (3.5-5.1); Protein, Total 7.3 g/dL (6.4-8.2); Sodium Level 130 mmol/L (136-145)
--- NOTE | 2019-10-15 12:23 | ED.RN ---
LAB CALLED TO REPORT D-DIMMER OF 2.67. DR. HELLER MADE AWARE.
[2019-10-15 12:24] LABS: D-Dimer Quantitative (DVT/PE) 2.67 FEU/ug/m (0.27-0.49)
--- NOTE | 2019-10-15 12:30 | CT_ITS ---
STUDY: CTA CHEST REASON FOR EXAM: Female, 24 years old. Shortness of breath on deep inspiration. The patient is . She was shielded appropriately. RADIATION DOSAGE (If Supplied By Facility): CTDIvol = ( 15.04 ) mGy, DLP = ( 418.65 ) mGycm TECHNIQUE: The examination was performed with the intravenous administration of IV 100mL Isovue-370. Post-processing of the angiographic images was performed, with multiplanar reformation and 3D reconstruction. Individualized dose optimization techniques were used for this CT. COMPARISON: Comparison is made with prior chest radiograph done earlier in the day. FINDINGS: Normal enhancement of the main pulmonary artery and right and left pulmonary arteries. Normal enhancement of the bilateral peripheral pulmonary arteries. There is no demonstrated pulmonary embolism. Normal thoracic aorta and visualized great vessels. There is no demonstrated aortic dissection. Normal heart and pericardium. Normal mediastinum. Normal hilar regions. Normal visualized trachea and bronchi. The lungs are well expanded. Small right pleural effusion. Fluid is also seen in the right major fissure. Focal infiltration in the right lower lobe as well as the anterior aspect of the right middle lobe. Nodular infiltrate in the peripheral aspect of the right upper lobe measuring 1.2 cm. Patchy infiltrates in the linear segment of the left upper lobe as well as in the left lower lobe. Normal chest wall structures. Normal osseous structures. Normal visualized upper abdomen. CT/CTA Chest W/WO Contrast IMPRESSION: Right pleural effusion with infiltrates in both lungs as described. There is no evidence of pulmonary embolism. Electronically Signed: Stevie Goel, at 13:36 EST , Service support ,
[2019-10-15] MEDS: fentaNYL 100 MCG/2 ML Ampul 50 MCG IV (12:48)
--- NOTE | 2019-10-15 12:56 | ED.RN ---
called pt's mother per pt request to inform that she is in the ED.
[2019-10-15 13:57] LABS: BNP,B-Type NATRIURETIC PEPTIDE 8.6 pg/mL (0-100)
[2019-10-15 14:34] LABS: Lactic Acid 0.6 mmol/L (0.4-1.9)
[2019-10-15] MEDS: Ceftriaxone 1 GM/50 ML BAG IV (14:40)
[2019-10-15] MEDS: Acetaminophen 500 MG Tablet 1000 MG PO (15:10)
--- NOTE | 2019-10-15 17:14 | PCM.HP.OB ---
History Date of Admission: 10/15/19 Final GIA: 02/16/20 Gestational age: 22 Weeks and 2 Days History of this : This is a 24 year-old, G 2P1 at 22.5 weeks gestation presented to the ER with complaints of difficulty breathing underwent a CAT scan which showed bilateral effusions-pneumonia diagnosed. Patient reports had a fever 101 recently at urgent care. Patient reports marijuana use and IVDA with recent history of methamphetamine use. Patient does report history of opioid use as well. Patient is not currently in a treatment program declines placement in a treatment program. Patient reports that her last use of methamphetamine was probably a few weeks ago. Patient denies any vaginal bleeding, leaking fluid or cramping. Medical History: Medical History (Last Reviewed 08/27/18 @ 09:42 by Monica Pablo) Chronic cholecystitis with calculus (Acute) K80.10 Abdominal pain R10.9 Cholelithiasis K80.20 Nausea & vomiting R11.2 Substance abuse F19.10 Surgical History: Surgical History (Last Updated 08/27/18 @ 09:42 by Monica Pablo) S/P laparoscopic cholecystectomy Z90.49 08/20 history wisdom teeth removal Allergies No Known Allergies Allergy (Verified 10/15/19 10:33) Home Medications: Home Medications Folic Acid 0.8 mg PO DAILY 10/11/19 Vits [Prenatabs FA ] 1 tab PO DAILY 10/11/19 Smoking Status: Never smoker Alcohol: None Substance Use Type: Marijuana, Methamphetamine, Opiates Number of Fetus(es): 1 History Past Pregnancies: Past Pregnancies Delivery Date Name GA/ Weeks Outcome Route Wt Infant Sex Labor Length Anesthesia Delivery Location Provider FOB Review of Systems Constitutional: Reports: Fever Respiratory: Reports: Cough Gastrointestinal: Denies: Abdominal Pain Physical Exam Vitals: Vital Signs Temp Pulse Resp BP Pulse Ox 97.2 F L 63 18 139/63 H 98 10/15/19 16:47 10/15/19 16:47 10/15/19 16:47 10/15/19 16:47 10/15/19 16:47 General: Alert, Oriented x3 Extremities:: Other - swelling hands and feet, left middle finger swollen more- no trauma.no pain Neurological: Cranial nerves II-XII grossly intact Assessment/Plan All Active Problems (Last Reviewed 08/27/18 @ 09:42 by Monica Pablo) Chronic cholecystitis with calculus (Acute) This is a 24 year-old, @ 22.5 wks, PNEUMONIA 1) CBC with differential in the morning with hepatitis C 2) discussed rehab facility for recent drug use-patient declines at this time 3) Tylenol for Pain/Fever 4) Medicine to consult for pneumonia 5) IVF to KVO 6) Regular diet, activity as tolerated 7) FHR by doppler daily
--- NOTE | 2019-10-15 17:21 | ED.VISSUMM ---
- ER Visit Summary Date of Service: 10/15/19 Chief Complaint: Shortness of breath History of Present Illness: The patient is a 24 F [facility] She does not have a primary care physician. She is a G1, P0 at 23 weeks of . She reports that she has shortness of breath began 5 days ago. She states that it is severe currently and at worst. Is worsened by exertion or laying flat. She denies any cough. However, she reports she is had a fever to 101 degrees. She reports that she has a right-sided chest pain that is sharp and increased with deep breaths or movement. Is 10 on 10 worsening a 10 currently. Patient reports she is had nausea. She denies any abdominal pain, vomiting, or diarrhea. She has normal movement. No vaginal bleeding. Physical Examination: Vitals: 99.2, 123/54, 122, 18, 96% room air which is not hypoxic. General: Well-nourished and well-developed. Head: Normocephalic atraumatic. Neck: Supple, no lymphadenopathy. No JVD. Nontender. Cardiovascular: Tachycardic regular rhythm. No murmurs. Respiratory: Mild respiratory distress. She has splinting and poor air movement. Her lungs are clear otherwise.. Abdominal: Soft, nontender, nondistended, normal bowel sounds. No guarding, rebound, or peritoneal signs. Gravid uterus. Back: Nontender. Extremities: Nontender, no edema. Edema to the left middle finger. There is mild erythema to her palm just proximal to this. There is no erythema of her finger. No induration or fluctuance. Skin: Normal color, no rash. Neurologic: Alert and oriented ?3. Cranial nerves II through XII are intact. Normal strength and sensation. Psych: Normal affect. Test Results: EKG is sinus tach [address] changes. Troponin is negative. BT COMMUNICATIONS TECHNOLOGIST is 8.6. D-dimer is positive. Influenza is negative. Bilateral lower extremity Dopplers were negative. Lactic acid is 0.6. LFTs show an ALT of 122, AST 41, and alk phos of 169. Albumin is 2.3 and globulin is 5.0. Chem-7 shows a sodium 130, chloride 96, BUN 5, creatinine 0.5, calcium 8.4. CBC shows a white count of 18.3 with an H&H 10.8 32.0, stable neutrophils 80, left sets of 10, immature granulocytes of 1.3%. Clinical Impression(s) from Imaging Studies Hand X-Ray 10/15/19 11:04 IMPRESSION: Soft tissue swelling. Electronically Signed: Stevie Keneverardo, at 11:30 EST , Service support , Chest X-Ray 10/15/19 11:15 IMPRESSION: Findings suggestive of CHF or bilateral pneumonia. Electronically Signed: Stevie Floresmadhu, at 11:30 EST , Service support , Chest CTA 10/15/19 12:30 IMPRESSION: Right pleural effusion with infiltrates in both lungs as described. There is no evidence of pulmonary embolism. Electronically Signed: Stevie Manasa, at 13:36 EST , Service support , Emergency Department Course and Treatment: Patient had an IV placed. She was given a liter normal saline. She was given a dose of morphine and Zofran IV. She continued to complain of pain and was given a dose of fentanyl IV. When things returned she was given a dose of Rocephin and Zithromax IV. The patient's mother reports that she uses heroin. The patient denies this. Treatment Plan: The patient was discussed with Dr. Grover as well as Dr. Arreguin. She will be admitted to the hospital for further evaluation and treatment. Disposition: Admitted in serious condition. Impression: 1. Pneumonia. 2. Second trimester . 3. Heroin abuse. This note was generated with [employer]ation software. It may contain incorrect words, spelling, and punctuation that were not noted in review of the chart prior to signing ED Disposition - Plan for ED Patient: Disposition: Acute Care [facility]
--- NOTE | 2019-10-15 17:21 | NURSING ---
FHT 149 with doppler. Found in RLQ.
[2019-10-15] MEDS: 0.9% Normal Saline 1,000 ML 100 ML IV (17:31)
[2019-10-15 20:19] LABS: Amphetamine Urine VISTA POSITIVE (<1000 ng/mL); Barbiturate Urine VISTA NEGATIVE (< 200 ng/mL); Benzodiazepine Urine VISTA NEGATIVE (< 200 ng/mL); Cocaine Urine VISTA NEGATIVE (< 300 ng/mL); Ecstacy Urine VISTA NEGATIVE (< 500 ng/mL); Methadone Urine VISTA NEGATIVE (< 300 ng/mL); PCP Urine VISTA NEGATIVE (< 25 ng/mL); THC Urine VISTA NEGATIVE (< 50 ng/mL); Vista UDS pH Range 6
--- NOTE | 2019-10-15 21:13 | CON.PCM_ITS ---
Problem List (1) PNA (pneumonia) Status: Acute Qualifiers: Laterality: bilateral (2) Hyponatremia Status: Acute (3) Opioid dependence Status: Chronic (4) Abnormal LFTs Status: Acute (5) Methamphetamine use Status: Chronic (6) Normochromic normocytic anemia Status: Acute (7) Pleurisy Status: Acute Reason for Consult Date of Consultation: 10/15/19 Reason for Consultation: BL PNA History of Present Illness: The patient is a 24 year old F with a PMH of polysubstance abuse who is 23 weeks who presented to the ED at [facility] on 10/15/19 c/o SOB that started about 5 days prior to coming to the ED. She denies a cough. She has chest pain BL with deep breaths. She complained of fevers but denied shaking chills. She additionally complained of nausea but denied abdominal pain, vomiting or diarrhea. She denied sick contacts but she works at [employer]. Vital signs at arrival to the emergency room were temperature 99.2, pulse rate 122, blood pressure 123/54, respiratory rate 18 and she was initially 96% saturated on room air. Respiratory rate later increased to the low 30s and the room air pulse ox dropped to 92%. Heart rate came down to 106 following some fluids. Labs showed an increased white blood cell count at 18.3 with a left shift. Hemoglobin was 10.8 with normochromic normocytic indices and platelets w ere within normal limits. D-dimer was increased at 2.67 likely due to . Sodium was low at 130 and the chloride was low at 96. BUN was 5 and the creatinine is 0.5. Lactic acid was within normal limits at 0.6. Bilirubin is within normal limits but the AST is 41 with an ALT of 122 and an alkaline phosphatase of 169. MRSA nasal screen is negative. Urine drug screen was positive for opiates and amphetamines. The patient was given 4 mg of morphine sulfate in the ER followed by 50 mg of IV fentanyl. She initially denied any intravenous opiate use but did tell the emergency room physician that she used methamphetamine a few weeks ago. She later revealed to me that she uses IV fentanyl daily, approximately 1/2 g. She also regularly uses intravenous methamphetamine. She has been using illegal substances since she was 19 years of age. Her boyfriend, the baby's father, is also addicted to opiates and methamphetamine. They have shared needles in the past but not currently. He has been admitted to the hospital on 10/15/2019 with acute hepatitis. She denies any hx of hepatitis. Past Medical History Past Medical History (Chronic Problems): Chronic Problems (Last Reviewed 10/15/19 @ 21:31 by Gladys Arreguin DO) Opioid dependence (Chronic) Methamphetamine use (Chronic) Medical History: Medical History (Last Reviewed 10/16/19 @ 00:28 by Gladys Arreguin DO) Abdominal pain R10.9 Cholelithiasis K80.20 Nausea & vomiting R11.2 Substance abuse F19.10 Chronic cholecystitis with calculus (Resolved) K80.10 Patient is status post cholecystectomy. 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: - - She is Lives: With Family Smoking Status: Never smoker Tobacco Use: Secondhand Alcohol: None Drugs: - - fentanyl and Methamphetamine - *Family History Maternal Family History: Family History (Last Reviewed 10/16/19 @ 00:28 by Gladys Arreguin DO) Grandmother Breast cancer Diabetes Grandfather Lung cancer Liver cancer Father Diabetes Mother Skin cancer Review of Systems Constitutional: Reports: Fever, Malaise Eyes: Denies: Blurred vision HEENT: Denies: Difficulty Swallowing, Head Aches, Sinus Congestion, Sinus Drainage, Sore Throat Cardiovascular: Reports: Chest Pain - worse with deep inspiration, Edema. Denies: Light Headedness, Palpitations, Syncope Respiratory: Reports: Pleuritic Pain, Shortness of Breath, Shortness of breath at rest, Shortness of breath upon exertion. Denies: Cough, Sputum production, Wheezing Gastrointestinal: Denies: Abdominal Pain, Diarrhea, Nausea, Vomiting Genitourinary: Denies: Dysuria Gynecological: Denies: Vaginal bleeding, Vaginal discharge Musculoskeletal: Denies: Joint Pain, Joint Tenderness Skin: Reports: - - track martínez on the upper extremities. Denies: Rash, Wounds Neurological: Denies: Slurred speech, Confusion, Focal weakness, Headaches, Numbness, Tingling, Seizures Psychiatric: Denies: Anxiety, Depression, Homicidal Ideations, Suicidal Ideations Endocrine: Denies: Hx of Thyroiditis Hematologic/ Lymphatic: Denies: Easy Bruising, Easy Bleeding, Hx of blood clot Patient Problems: Active and Suspected Problems (Last Reviewed 10/15/19 @ 21:31 by Gladys Arreguin DO) PNA (pneumonia) (Acute) Hyponatremia (Acute) Abnormal LFTs (Acute) Normochromic normocytic anemia (Acute) Pleurisy (Acute) - Physical Exam Vitals/I&O's: Vital Signs Temp Pulse Resp BP Pulse Ox 97.2 F L 63 18 139/63 H 98 10/15/19 16:47 10/15/19 16:47 10/15/19 16:47 10/15/19 16:47 10/15/19 16:47 Oxygen Flow Rate (L/min) 2 Oxygen Delivery Method Nasal Cannula Weight: 215 lb 4.8 oz Body Mass Index (BMI) 36.9 Intake and Output for Last 24 Hours 10/13/19 10/14/19 10/15/19 23:59 23:59 23:59 Intake Total 1155 / 1155 Balance 1155 / 1155 General: Alert, Oriented x3 HEENT: Atraumatic, PERRLA, EOMI, Normocephalic Oral: No Gingival or Mucosal Lesions/ Ulcerations, Dry Mucosa Neck: Supple, No JVD, No Nodes, Trachea Midline Lungs: No rhonchi, No wheeze, No rales, Diminished - diminished throughout but, very diminished in the bases. She is tachypneic and hypoventilating with poor air exchange because it hurts. there is no accessory muscle use., - - having CP BL with deep inspiration Cardiovascular: Regular rate, Regular Rhythm, Normal S1, Normal S2, No murmurs, No rub noted, No Gallop Abdomen: Bowel Sounds Present, Soft, Non Tender, Non-Distended, Obese Extremities: No clubbing, No cyanosis, Edema - at the ankles Skin: No rashes, - - has track martínez on both UE's and there are fresh puncture sites and some bruising on the L forearm around the puncture sites. No punctures wounds between the toes. Musculoskeletal: No Muscle Wasting Neurological: Cranial nerves II-XII grossly intact, Neuro grossly intact Psych/Mental Status: Appropriate Microbiology Past 72 Hours 10/15/19 19:40 Urine, Clean Catch Legionella Antigen - Final 10/15/19 19:40 Urine, Clean Catch Streptococcus pneumoniae Antigen (M - Final 10/15/19 12:35 Mucosa - Nose Influenza Types A,B Direct FA (GINA) - Final Laboratory Results 10/15/19 11:43: WBC 18.3 H, RBC 3.87 L, Hgb 10.8 L, Hct 32.0 L, MCV 82.7, MCH 27.9, MCHC 33.8, RDW Std Deviation 43.2, RDW Coeff of Colby 14.5, Plt Count 333, MPV 9.7, Immature Gran % (Auto) 1.300 H, Neut % (Auto) 80.4 H, Lymph % (Auto) 10.2 L, Haskell % (Auto) 6.5, Eos % (Auto) 1.3, Baso % (Auto) 0.3, Absolute Neuts (auto) 14.8 H, Absolute Lymphs (auto) 1.86, Nucleated RBC % 0 10/15/19 11:43: D-Dimer Quant (PE/DVT) 2.67 H* 10/15/19 11:43: Sodium 130 L, Potassium 3.8, Chloride 96 L, Carbon Dioxide 29.0, Anion Gap 5, BUN 5 L, Creatinine 0.50 L, Estim Creat Clear Calc 148.53, Est GFR (MDRD) Af Amer 191, Est GFR (MDRD) Non-Af 158, BUN/Creatinine Ratio 9.9 L, Glucose 88, Calcium 8.4 L, Total Bilirubin 0.50, AST 41 H, ALT 122 H, Alkaline Phosphatase 169 H, Troponin I < 0.015, Total Protein 7.3, Albumin 2.3 L, Globulin 5.0 H, Albumin/Globulin Ratio 0.5 L 10/15/19 11:43: B-Natriuretic Peptide 8.6 10/15/19 14:00: Lactic Acid 0.6 10/15/19 19:40: Urine Opiates Screen POSITIVE H, Urine Methadone Screen NEGATIVE, Ur Barbiturates Screen NEGATIVE, Ur Phencyclidine Scrn NEGATIVE, Ur Amphetamines Screen POSITIVE H, U Methamphetamin-MDMA NEGATIVE, U Benzodiazepi case Scrn NEGATIVE, Urine Cocaine Screen NEGATIVE, U Cannabinoids Screen NEGATIVE, Ur Drug Screen Comment Current Medications Acetaminophen (Tylenol) 500 - 1,000 mg PO Q6H PRN PRN PRN Reason: Mild pain or fever >99.6F Al Hydroxide/Mg Hydroxide (Mylanta Ii) 30 ml PO Q6H PRN PRN PRN Reason: dyspesia Buprenorphine HCl (Buprenorphine Hcl) 2 mg SL Q2H PRN PRN PRN Reason: tachycardia/diaphoresis, vomit Clonidine (Catapres) 0.1 mg PO Q2H PRN PRN PRN Reason: Hot/Cold Sweats or Anxiety Folic Acid (Folic Acid) 1 mg PO DAILY@0800 [facility] Hydroxyzine Pamoate (Vistaril Pamoate Capsule) 25 mg PO Q6H PRN PRN PRN Reason: Mild Anxiety Sodium Chloride () 1,000 mls @ 100 mls/hr IV .Q10H [facility] Last Admin: 10/15/19 17:31 Dose: 100 mls/hr Documented by: Loperamide HCl (Imodium) 2 - 4 mg PO UD PRN PRN Reason: LOOSE STOOLS Multivit/Folic Acid/Iron (Prenatabs Fa) 1 tablet PO DAILY@0800 [facility] Senna (Senokot) 1 tablet PO QHS PRN PRN Reason: Constipation Sodium Chloride () 10 - 40 ml IV UD PRN PRN Reason: SALINE FLUSH Assessment/Plan All Active Problems (Last Reviewed 10/15/19 @ 21:31 by Gladys Arreguin DO) PNA (pneumonia) (Acute) Hyponatremia (Acute) Abnormal LFTs (Acute) Normochromic normocytic anemia (Acute) Pleurisy (Acute) Chronic cholecystitis with calculus (Resolved) Impressions 1. Sepsis secondary to Multilobar, BL pneumonia - with the hx of opiate and methamphetamine use cannot rule out that this is secondary to aspiration. She was treated with Rocephin and azithromycin in the emergency department. We will broaden the coverage and start her on Zosyn. This was discussed with Dr. Gutierrez and she is in agreement. The MRSA nasal screen is negative so will not start vancomycin at this time. Dr. Darrin Espinosa has been consulted to participate in management. She is hypoventilating because she has CP and I anticipate that things will get worse before they get better. IS and PEP have been ordered and Tylenol was ordered by Dr. Grover. 2. opioid addiction and methamphetamine use - daily. 0.5 GM of Fentanyl daily. Need to prevent withdrawal and pt is agreeable to starting buprenorphine. This was discussed with Dr. Grover and she is in agreement. Will need to figure out what her daily requirement of buprenorphine is and continue this throughout her . Buprenorphine orders have been written. Would like to be able to discuss this with Dr. Dorina Escamilla from addiction medicine in the AM if she is available. Pt understands that we will not be giving her narcotics. 3. 23 week gestation - due in February. 4. Normochromic normocytic anemia D/W Dr. Grover. Dr. Espinosa from pulmonary medicine has been consulted to participate in management. Legionella and streptococcal antigens in the urine are negative. Influenza swab is negative. Respiratory panel is pending. Sputum culture has been ordered. Blood cultures have been drawn. Code Visit Inpatient E&M: 15682 Subs Hosp L3
[2019-10-15] MEDS: Buprenorphine HCl 2 MG TAB.SUBL SL (21:20)
[2019-10-15] MEDS: Acetaminophen 500 MG Tablet PO (21:21)
[2019-10-15 23:01] LABS: M R Staph aureus DNA By PCR Negative (Negative); Probe Check PASS; Specimen Processing Control PASS
[2019-10-15] MEDS: guaiFENesin 600 MG Tablet PO (23:18)
[2019-10-16] VITALS (9 sets, daily range): BP systolic 104–132; BP diastolic 52–82; PULSE 73–105; RESP 18–28; TEMP 35.5–36.8; O2SAT 93–98
[2019-10-16] MEDS: hydrOXYzine PAM 25 MG Capsule PO ×2 (01:47→18:37)
[2019-10-16] MEDS: 0.9% Normal Saline 1,000 ML 100 ML IV ×2 (03:04→13:11)
[2019-10-16] MEDS: Buprenorphine HCl 2 MG TAB.SUBL SL ×3 (03:04→18:37)
--- NOTE | 2019-10-16 03:12 | PCM.PN.BLA ---
Progress Note Blood cultures positive for gram-positive cocci. Because of potential ototoxic and nephrotoxic effects of vancomycin on infact will shy from vancomycin for now especially as gram-positive cocci was not reported as being in clusters and MRSA PCR is negative. Consider echocardiogram in the setting of patient who uses IV drugs. STROKE Vital Signs/Narrative: Vital Signs Temp Pulse Resp BP Pulse Ox 10/16/19 00:49 96 F L 87 20 H 132/79 H 96
[2019-10-16] MEDS: Acetaminophen 500 MG Tablet PO ×3 (03:20→18:37)
--- NOTE | 2019-10-16 07:55 | PCM.PN.OB ---
Patient Problems: Active and Suspected Problems (Last Reviewed 10/16/19 @ 00:28 by Gladys Arreguin DO) PNA (pneumonia) (Acute) Hyponatremia (Acute) Abnormal LFTs (Acute) Normochromic normocytic anemia (Acute) Pleurisy (Acute) Subjective: pt seen at bedside, reports pain on deep breathing. pt denies any Obstetrical complaints. pt denies vb, lof, ctx. pt reports +FM. pt understands she needs to seek treatment program but is not willing to discuss at this time. pt does admit to daily fentanyl use and methamphetamine. - Physical Exam Vitals/I&O's: Vital Signs Temp Pulse Resp BP Pulse Ox 97.4 F L 105 H 20 H 126/82 H 98 10/16/19 05:50 10/16/19 05:50 10/16/19 05:50 10/16/19 05:50 10/16/19 05:50 Oxygen Flow Rate (L/min) 2 Oxygen Delivery Method Nasal Cannula Weight: 97.658 kg Body Mass Index (BMI) 36.9 Intake and Output for Last 24 Hours 10/14/19 10/15/19 10/16/19 23:59 23:59 23:59 Intake Total 1555 / 1555 1485 / 1485 Balance 1555 / 1555 1485 / 1485 General: Alert, Oriented x3 Lungs: Clear to auscultation, No rhonchi, Diminished - at bases, Short of Breath, Tachypneic Abdomen: Soft, Gravid Neurological: Cranial nerves II-XII grossly intact Microbiology Past 72 Hours 10/15/19 14:10 Blood Culture (Wb) - Right Hand Blood Culture - Preliminary 10/15/19 14:00 Blood Culture (Wb) - Anticubital Right Blood Culture - Preliminary 10/15/19 19:40 Urine, Clean Catch Legionella Antigen - Final 10/15/19 19:40 Urine, Clean Catch Streptococcus pneumoniae Antigen (M - Final 10/15/19 12:35 Mucosa - Nose Influenza Types A,B Direct FA (GINA) - Final Laboratory Results 10/15/19 11:43: WBC 18.3 H, RBC 3.87 L, Hgb 10.8 L, Hct 32.0 L, MCV 82.7, MCH 27.9, MCHC 33.8, RDW Std Deviation 43.2, RDW Coeff of Colby 14.5, Plt Count 333, MPV 9.7, Immature Gran % (Auto) 1.300 H, Neut % (Auto) 80.4 H, Lymph % (Auto) 10.2 L, Gaston % (Auto) 6.5, Eos % (Auto) 1.3, Baso % (Auto) 0.3, Absolute Neuts (auto) 14.8 H, Absolute Lymphs (auto) 1.86, Nucleated RBC % 0 10/15/19 11:43: D-Dimer Quant (PE/DVT) 2.67 H* 10/15/19 11:43: Sodium 130 L, Potassium 3.8, Chloride 96 L, Carbon Dioxide 29.0, Anion Gap 5, BUN 5 L, Creatinine 0.50 L, Estim Creat Clear Calc 148.53, Est GFR (MDRD) Af Amer 191, Est GFR (MDRD) Non-Af 158, BUN/Creatinine Ratio 9.9 L, Glucose 88, Calcium 8.4 L, Total Bilirubin 0.50, AST 41 H, ALT 122 H, Alkaline Phosphatase 169 H, Troponin I < 0.015, Total Protein 7.3, Albumin 2.3 L, Globulin 5.0 H, Albumin/Globulin Ratio 0.5 L 10/15/19 11:43: B-Natriuretic Peptide 8.6 10/15/19 14:00: Lactic Acid 0.6 10/15/19 19:40: Urine Opiates Screen POSITIVE H, Urine Methadone Screen NEGATIVE, Ur Barbiturates Screen NEGATIVE, Ur Phencyclidine Scrn NEGATIVE, Ur Amphetamines Screen POSITIVE H, U Methamphetamin-MDMA NEGATIVE, U Benzodiazepines Scrn NEGATIVE, Urine Cocaine Screen NEGATIVE, U Cannabinoids Screen NEGATIVE, Ur Drug Screen Comment 10/15/19 21:41: MRSA (PCR) Negative Current Medications Acetaminophen (Tylenol) 500 - 1,000 mg PO Q6H PRN PRN PRN Reason: Mild pain or fever >99.6F Last Admin: 10/16/19 03:20 Dose: 1,000 mg Documented by: Al Hydroxide/Mg Hydroxide (Mylanta Ii) 30 ml PO Q6H PRN PRN PRN Reason: dyspesia Buprenorphine HCl (Buprenorphine Hcl) 2 mg SL Q2H PRN PRN PRN Reason: tachycardia/diaphoresis, vomit Last Admin: 10/16/19 03:04 Dose: 2 mg Documented by: Clonidine (Catapres) 0.1 mg PO Q2H PRN PRN PRN Reason: Hot/Cold Sweats or Anxiety Folic Acid (Folic Acid) 1 mg PO DAILY@0800 [facility] Guaifenesin (Mucinex) 600 mg PO BID [facility] Last Admin: 10/15/19 23:18 Dose: 600 mg Documented by: Hydroxyzine Pamoate (Vistaril Pamoate Capsule) 25 mg PO Q6H PRN PRN PRN Reason: Mild Anxiety Last Admin: 10/16/19 01:47 Dose: 25 mg Documented by: Sodium Chloride () 1,000 mls @ 100 mls/hr IV .Q10H [facility] Last Admin: 10/16/19 03:04 Dose: 100 mls/hr Documented by: Piperacillin Sod/Tazobactam (Sod 3.375 gm/ Sodium Chloride) 50 mls @ 12.5 mls/hr IV Q8 [facility] Last Admin: 10/16/19 05:38 Dose: 12.5 mls/hr Documented by: Loperamide HCl (Imodium) 2 - 4 mg PO UD PRN PRN Reason: LOOSE STOOLS Multivit/Folic Acid/Iron (Prenatabs Fa) 1 tablet PO DAILY@0800 [facility] Senna (Senokot) 1 tablet PO QHS PRN PRN Reason: Constipation Sodium Chloride () 10 - 40 ml IV UD PRN PRN Reason: SALINE FLUSH Medical Necessity - Tobacco Use Smoking Status: Never smoker Tobacco Use: Secondhand Assessment/Plan All Active Problems (Last Reviewed 10/16/19 @ 00:28 by Gladys Arreguin DO) PNA (pneumonia) (Acute) Hyponatremia (Acute) Abnormal LFTs (Acute) Normochromic normocytic anemia (Acute) Pleurisy (Acute) Chronic cholecystitis with calculus (Resolved) HD#1- pneumonia, pleurisy, opioid dependance, 22+ wk gestation 1) repeat labs today including HIV, HEP C- Early HIV testing negative 2) consultation with Pulmonology and Medicine 3) Continue IV abx - zosyn 4) Incentive spirometry encouraged 5) once medically stable encouraged in-patient treatment program at [facility] 6) Continuous Pulse ox and 2 L oxygen via NC 7) continue buprenorphine
--- NOTE | 2019-10-16 08:34 | PCM.CONS.PUL ---
Problem List (1) PNA (pneumonia) Status: Acute Qualifiers: Laterality: bilateral (2) Hyponatremia Status: Acute (3) Opioid dependence Status: Chronic (4) Methamphetamine use Status: Chronic (5) Pleurisy Status: Acute Reason for Consult Date of Consultation: 10/16/19 Reason for Consultation: Pneumonia in History of Present Illness: The patient is a 24 year old F, with past medical history listed below, who presented to [facility] on 10/15/2019 secondary to progressive shortness of breath over 5 days. Patient states that she developed bilateral pleuritic type chest pain limiting her ability to take deep breaths. This was worsened with exertion and lying flat. Patient had not reported any cough or fever, but was noted to have a temperature on presentation. Patient states the pain is 10 out of 10 and limits her ability to breathe. In the ER, patient was tachycardic at 122 bpm, but saturating 96% on room air. EKG was unremarkable. BNP was within normal limits, but d-dimer was positive. Bilateral lower extremities were negative for DVT, but chest x-ray had shown bilateral infiltrates. Patient did have a CTA of the chest showing no PE, but significant infiltrates bilaterally. Patient was admitted to the floor and initiated on healthcare antibiotics. Patient reports that this is her first . Patient does admit to recreational drug use including IV drugs for the past year. Patient denied any alcohol or tobacco history, but does smoke marijuana. Patient denies any history of obstructive lung disease such as asthma or COPD. Patient did not have any chest trauma. Patient does not really endorse URI type symptoms or a cough prior to onset of shortness of breath and pleuritic type chest pain. Patient denies any dysuria. 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 Review of systems otherwise negative from a constitutional, HEENT, respiratory, cardiovascular, GI, genitourinary, musculoskeletal, skin, neurologic, psychiatric and hematologic system unless stated above. Past Medical History Past Medical History (Chronic Problems): Chronic Problems (Last Reviewed 10/16/19 @ 00:28 by Gladys Arreguin DO) Opioid dependence (Chronic) Methamphetamine use (Chronic) Medical History: Medical History (Last Reviewed 10/16/19 @ 00:28 by Gladys Arreguin DO) Abdominal pain R10.9 Cholelithiasis K80.20 Nausea & vomiting R11.2 Substance abuse F19.10 Chronic cholecystitis with calculus (Resolved) K80.10 Patient is status post cholecystectomy. 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 History: - - She is Lives: With Family Smoking Status: Never smoker Tobacco Use: Secondhand Alcohol: None Drugs: - - fentanyl and Methamphetamine - *Family History Maternal Family History: Family History (Last Reviewed 10/16/19 @ 00:28 by Gladys Arreguin DO) Grandmother Breast cancer Diabetes Grandfather Lung cancer Liver cancer Father Diabetes Mother Skin cancer Review of Systems Comment: See HPI Patient Problems: Active and Suspected Problems (Last Reviewed 10/16/19 @ 00:28 by Gladys Arreguin DO) PNA (pneumonia) (Acute) Hyponatremia (Acute) Abnormal LFTs (Acute) Normochromic normocytic anemia (Acute) Pleurisy (Acute) Objective: All imaging was personally reviewed. Agree with formal interpretation. - Physical Exam Vitals/I&O's: Vital Signs Temp Pulse Resp BP Pulse Ox 36.3 C L 105 H 20 H 126/82 H 96 10/16/19 05:50 10/16/19 05:50 10/16/19 05:50 10/16/19 05:50 10/16/19 07:03 Oxygen Flow Rate (L/min) 2 Oxygen Delivery Method Nasal Cannula Weight: 97.658 kg Body Mass Index (BMI) 36.9 Intake and Output for Last 24 Hours 10/14/19 10/15/19 10/16/19 23:59 23:59 23:59 Intake Total 1555 / 1555 1485 / 1485 Balance 1555 / 1555 1485 / 1485 General: Alert, Oriented x3, Cooperative - Minimally, Well developed, Well nourished, - - Patient does tend to exaggerate symptoms when actively discussing with staff, but minimizes with distraction. HEENT: Atraumatic, PERRLA, EOMI, Normocephalic, - - No scleral icterus or injection noted. Oral: Moist Mucosa, No Gingival or Mucosal Lesions/ Ulcerations, - - Fair dentition Neck: Supple, No JVD, No Nodes, Trachea Midline Lungs: No wheeze, No rales, Diminished - Very poor effort, Rhonchi, - - Symmetric expansion. Cardiovascular: Regular rate, Regular Rhythm, Normal S1, Normal S2, No murmurs, No rub noted, No Gallop Abdomen: Bowel Sounds Present, Soft, Non Tender, Non-Distended, Obese Extremities: No clubbing, No cyanosis, Edema, - - Swollen left finger. No splinter hemorrhages appreciated Skin: No rashes, No breakdown Musculoskeletal: Tenderness - Diffuse tenderness reported Lymphatic: No Cervical, Supraclavicular, or Inguinal Adenopathy Neurological: Cranial nerves II-XII grossly intact, Neuro grossly intact, Motor Exam 5/5 strength throughout Psych/Mental Status: Alert and oriented to time, place, person, mood and affect Microbiology Past 72 Hours 10/15/19 14:10 Blood Culture (Wb) - Right Hand Blood Culture - Preliminary 10/15/19 14:00 Blood Culture (Wb) - Anticubital Right Blood Culture - Preliminary 10/15/19 19:40 Urine, Clean Catch Legionella Antigen - Final 10/15/19 19:40 Urine, Clean Catch Streptococcus pneumoniae Antigen (M - Final 10/15/19 12:35 Mucosa - Nose Influenza Types A,B Direct FA (GINA) - Final Laboratory Results 10/15/19 11:43: WBC 18.3 H, RBC 3.87 L, Hgb 10.8 L, Hct 32.0 L, MCV 82.7, MCH 27.9, MCHC 33.8, RDW Std Deviation 43.2, RDW Coeff of Colby 14.5, Plt Count 333, MPV 9.7, Immature Gran % (Auto) 1.300 H, Neut % (Auto) 80.4 H, Lymph % (Auto) 10.2 L, Mower % (Auto) 6.5, Eos % (Auto) 1.3, Baso % (Auto) 0.3, Absolute Neuts (auto) 14.8 H, Absolute Lymphs (auto) 1.86, Nucleated RBC % 0 10/15/19 11:43: D-Dimer Quant (PE/DVT) 2.67 H* 10/15/19 11:43: Sodium 130 L, Potassium 3.8, Chloride 96 L, Carbon Dioxide 29.0, Anion Gap 5, BUN 5 L, Creatinine 0.50 L, Estim Creat Clear Calc 148.53, Est GFR (MDRD) Af Amer 191, Est GFR (MDRD) Non-Af 158, BUN/Creatinine Ratio 9.9 L, Glucose 88, Calcium 8.4 L, Total Bilirubin 0.50, AST 41 H, ALT 122 H, Alkaline Phosphatase 169 H, Troponin I < 0.015, Total Protein 7.3, Albumin 2.3 L, Globulin 5.0 H, Albumin/Globulin Ratio 0.5 L 10/15/19 11:43: B-Natriuretic Peptide 8.6 10/15/19 14:00: Lactic Acid 0.6 10/15/19 19:40: Urine Opiates Screen POSITIVE H, Urine Methadone Screen NEGATIVE, Ur Barbiturates Screen NEGATIVE, Ur Phencyclidine Scrn NEGATIVE, Ur Amphetamines Screen POSITIVE H, U Methamphetamin-MDMA NEGATIVE, U Benzodiazepines Scrn NEGATIVE, Urine Cocaine Screen NEGATIVE, U Cannabinoids Screen NEGATIVE, Ur Drug Screen Comment 10/15/19 21:41: MRSA (PCR) Negative Current Medications Acetaminophen (Tylenol) 500 - 1,000 mg PO Q6H PRN PRN PRN Reason: Mild pain or fever >99.6F Last Admin: 10/16/19 03:20 Dose: 1,000 mg Documented by: Al Hydroxide/Mg Hydroxide (Mylanta Ii) 30 ml PO Q6H PRN PRN PRN Reason: dyspesia Buprenorphine HCl (Buprenorphine Hcl) 2 mg SL Q2H PRN PRN PRN Reason: tachycardia/diaphoresis, vomit Last Admin: 10/16/19 03:04 Dose: 2 mg Documented by: Clonidine (Catapres) 0.1 mg PO Q2H PRN PRN PRN Reason: Hot/Cold Sweats or Anxiety Folic Acid (Folic Acid) 1 mg PO DAILY@0800 [facility] Guaifenesin (Mucinex) 600 mg PO BID [facility] Last Admin: 10/15/19 23:18 Dose: 600 mg Documented by: Hydroxyzine Pamoate (Vistaril Pamoate Capsule) 25 mg PO Q6H PRN PRN PRN Reason: Mild Anxiety Last Admin: 10/16/19 01:47 Dose: 25 mg Documented by: Sodium Chloride () 1,000 mls @ 100 mls/hr IV .Q10H [facility] Last Admin: 10/16/19 03:04 Dose: 100 mls/hr Documented by: Piperacillin Sod/Tazobactam (Sod 3.375 gm/ Sodium Chloride) 50 mls @ 12.5 mls/hr IV Q8 [facility] Last Admin: 10/16/19 05:38 Dose: 12.5 mls/hr Documented by: Loperamide HCl (Imodium) 2 - 4 mg PO UD PRN PRN Reason: LOOSE STOOLS Multivit/Folic Acid/Iron (Prenatabs Fa) 1 tablet PO DAILY@0800 [facility] Senna (Senokot) 1 tablet PO QHS PRN PRN Reason: Constipation Sodium Chloride () 10 - 40 ml IV UD PRN PRN Reason: SALINE FLUSH Clinical Impression(s) from Imaging Studies Hand X-Ray 10/15/19 11:04 IMPRESSION: Soft tissue swelling. Electronically Signed: Stevie Goel, at 11:30 EST , Service support , Chest X-Ray 10/15/19 11:15 IMPRESSION: Findings suggestive of CHF or bilateral pneumonia. Electronically Signed: Stevie Goel, at 11:30 EST , Service support , Chest CTA 10/15/19 12:30 IMPRESSION: Right pleural effusion with infiltrates in both lungs as described. There is no evidence of pulmonary embolism. Electronically Signed: Stevie Goel, at 13:36 EST , Service support , Assessment/Plan All Active Problems (Last Reviewed 10/16/19 @ 00:28 by Gladys Arreguin DO) PNA (pneumonia) (Acute) Hyponatremia (Acute) Abnormal LFTs (Acute) Normochromic normocytic anemia (Acute) Pleurisy (Acute) Chronic cholecystitis with calculus (Resolved) RECOMMENDATIONS: 1. Obtain echocardiogram 2. Consider vancomycin if okay with OB 3. Initiate steroid therapy 4. Encourage incentive spirometer and activity as tolerated IMPRESSIONS: 1. Acute hypoxic respiratory insufficiency secondary to pneumonia/pleurisy Patient with bilateral infiltrates and dependent areas of the lung. Given IV drug use and gram-positive's in the blood, this may be secondary to endocarditis. Patient should have an echocardiogram for evaluation of valvular function. NSAIDs would be contraindicated in , so will place on a low-dose prednisone to allow for deep inhalation and pulmonary recruitment. Stressed to the patient the importance of incentive spirometer. 2. 22 weeks OB is following. Fetus is not currently viable, but need to be aware for medications. Patient may benefit from vancomycin, but safety to the baby is unclear at this time. Blood cultures have gram-positive cocci. Await probe analysis. 3. Obesity/IV drug use/polysubstance abuse/poor primary care Complicates care, management, recovery and prognosis. Defer to hospitalist on medical stabilization for narcotic abuse. Patient denies any alcohol abuse. Code Visit Inpatient E&M: 68759 Init Hosp L3
--- NOTE | 2019-10-16 08:42 | ECHOD_ITS ---
Reason For Study: DYSPNEA/SOB Procedure This was a 2D Doppler, Color Flow transthoracic echocardiogram. The study was technically difficult. PT was in pain during exam. Exam performed portable in patient room. Left Ventricle Normal LV size. Mid cavitary false tendon noted. Left ventricular systolic function is normal. The estimated ejection fraction is 65 %. No evidence for diastolic dysfunction. No regional wall motion abnormalities noted. Right Ventricle Normal RV size. Normal systolic function. Atria The left atrium is mildly enlarged. Normal right atrium. No doppler evidence for ASD. Mitral Valve There is no mitral annular calcification. Mild diffuse mitral valve thickening. Equivocal mitral valve prolapse. Trivial mitral valve insufficiency. Tricuspid Valve Normal tricuspid valve. Trivial tricuspid valve insufficiency. Right ventricular systolic pressure estimated to be 38 mmHg. Aortic Valve Trisinus/trileaflet aortic valve. Normal aortic valve. Pulmonic Valve The pulmonic valve is not well visualized. Trivial pulmonic valve insufficiency. Great Vessels Normal sized aortic root. Pericardium/Pleural No pericardial effusion. MMode/2D Measurements & Calculations LVIDd: 4.8 cm IVSd: 0.85 cm Ao root diam: 2.9 cm LVIDs: 2.8 cm LVPWd: 0.80 cm LA dimension: 4.1 cm RVDd: 3.1 cm FS: 40.2 % LAV(MOD-bp): 73.3 ml LA A4 area: 21.5 cm2 RA A4 area: 11.4 cm2 LAV(MOD-bp) Indexed: 36.3 ml/m2 LAV(MOD-sp2): 70.0 ml LAV(MOD-sp4): 75.2 ml Doppler Measurements & Calculations MV E max navdeep: 125.0 cm/sec Ao V2 max: 206.9 cm/sec LV V1 max: 150.4 cm/sec MV A max navdeep: 109.3 cm/sec Ao max P.1 mmHg LV V1 max P.1 mmHg MV E/A: 1.1 Ao V2 mean: 129.3 cm/sec LV V1 mean P.6 mmHg Ao mean P.6 mmHg LV V1 mean: 102.3 cm/sec Ao V2 VTI: 31.5 cm LV V1 VTI: 24.5 cm PA V2 max: 144.3 cm/sec TR max navdeep: 294.4 cm/sec TR max P.7 mmHg Interpretation Summary The study was technically difficult. Left ventricular systolic function is normal. The estimated ejection fraction is 65 %. Mid cavitary false tendon noted. The left atrium is mildly enlarged. Mild diffuse mitral valve thickening. Equivocal mitral valve prolapse. Trivial mitral valve insufficiency. Trivial tricuspid valve insufficiency. Trivial pulmonic valve insufficiency. Right ventricular systolic pressure estimated to be 38 mmHg. No evidence for diastolic dysfunction. Comment: No obvious intracardiac mass lesions identified. Ordering Physician: Darrin Espinosa Referring Physician: Dixie Buck Performed By: Griselda Lazar, PRIMOCS, RVT
[2019-10-16] MEDS: predniSONE 20 MG Tablet PO (09:36)
[2019-10-16] MEDS: guaiFENesin 600 MG Tablet PO ×2 (09:36→21:08)
[2019-10-16] MEDS: Prenatal Vits Tablet 1 TABLET PO (09:36)
[2019-10-16] MEDS: Folic Acid 1 MG Tablet PO (09:36)
[2019-10-16] MEDS: cloNIDine HCl 0.1 MG Tablet PO ×2 (09:42→18:37)
[2019-10-16 09:54] LABS: Absolute Lymphocyte Count 1.04 X10^3/uL (0.83-4.51); Absolute Neutrophil Count 12.9 X10^3/uL (2.0-7.7); Basophil# 0.05 X10^3/uL; Basophil% 0.3 % (0-1); Eosinophil# 0.16 X10^3/uL; Eosinophils% 1.1 % (0-5); Hematocrit 30.5 % (37-47); Hemoglobin 9.8 g/dL (12.0-15.0); Lymphocyte # 1.04 X10^3/ul (4.0); Lymphocyte % 6.9 % (19-41); Mean Corp Hgb Conc 32.1 g/dL (32-36); Mean Corpuscular Hgb 27.5 pg (27.0-32.0); Mean Corpuscular Volume 85.7 fL (81-99); Mean Platelet Vol. 9.5 fl (6.2-12.0); Monocyte# 0.67 X10^3/uL; Monocyte% 4.5 % (0-10); NRBC Flagged by Analyzer 0 % (0-5); Neutrophil # 12.85 X10^3/uL (2.7-7.7); Neutrophil % 85.4 % (47-70); Platelet Count 319 K/mm3 (150-450); RBC Distribution Width CV 14.6 % (11.6-14.6); RBC Distribution Width SD 46.5 fl (35.1-43.9); Red Blood Count 3.56 M/mm3 (4.2-5.4)
--- NOTE | 2019-10-16 10:45 | NURSING ---
1030 heart tones 150-160 per cstjohn
[2019-10-16 10:54] LABS: ALB/GLOB Ratio 0.4 RATIO (0.9-2.4); AST(SGOT) 30 U/L (15-37); Alanine Aminotransfer ALT/SGPT 93 U/L (13-56); Alkaline Phosphatase 173 U/L (45-117); Anion Gap 4 (5-15); BUN 6 mg/dL (7-18); BUN/Creat Ratio 11.8 RATIO (10-20); Calcium,Total 8.3 mg/dL (8.5-10.1); Chloride 103 mmol/L (98-107); Creatinine, Serum 0.51 mg/dL (0.55-1.02); EST Glomerular Filtration Rate 157 mL/min (>60); Est Glom Filt Rate - Afr Amer 190 mL/min (>60); Estimated Creatinine Clearance 145.61 ml/min; Globulin 4.9 g/dL (2.2-4.2); Glucose 125 mg/dL (74-106); Potassium 4.2 mmol/L (3.5-5.1); Protein, Total 6.9 g/dL (6.4-8.2); Sodium Level 135 mmol/L (136-145)
--- NOTE | 2019-10-16 11:31 | NURSING ---
Addendum entered by Kallie Sanders 10/16/19 11:36: Mother also talked to pt about considering giving the baby up for adoption and going to an in rehab center. Pt does not want to go to [facility] as she knows people who have gone there in the past. Original Note: Lazara Pacheco, patients mother informed this nurse and Penny Primary nurse that as of now, pt is homeless and pt is aware. Pt was living with Grandmother but Grandmother found syringes in patients room at home and has decided to kick her out. This nurse attempted to call Social Work number that was provided for todays SW but went straight to voicenhil.
--- NOTE | 2019-10-16 12:49 | PN_ITS ---
Patient Problems: Active and Suspected Problems (Last Reviewed 10/16/19 @ 00:28 by Gladys Arreguin DO) PNA (pneumonia) (Acute) Hyponatremia (Acute) Abnormal LFTs (Acute) Normochromic normocytic anemia (Acute) Pleurisy (Acute) Reason for Visit: Pneumonia/ Subjective: Patient was seen and examined. She is SOB especially with conversation. Admits to pleuritic chest pain. She says she feel improved than previous. Denies fever or chills. Blood cultures are growing Staph aureus, not MRSA Vitals/I&O's: Vital Signs Temp Pulse Resp BP Pulse Ox 98.3 F 104 H 20 H 132/76 H 98 10/16/19 09:50 10/16/19 09:50 10/16/19 09:50 10/16/19 09:50 10/16/19 09:50 Oxygen Flow Rate (L/min) 2 Oxygen Delivery Method Nasal Cannula Weight: 97.658 kg Body Mass Index (BMI) 36.9 Intake and Output for Last 24 Hours 10/14/19 10/15/19 10/16/19 23:59 23:59 23:59 Intake Total 1555 / 1555 1775 / 1775 Output Total 600 / 600 Balance 1555 / 1555 1175 / 1175 General: Alert, Oriented x3, Cooperative, - - in mild respiratory distress, on 2L oxygen HEENT: Atraumatic, PERRLA, EOMI, Normocephalic Oral: Moist Mucosa Neck: Supple Lungs: Diminished - no wheezes heard Cardiovascular: Regular rate, Regular Rhythm, Normal S1, Normal S2, No murmurs Abdomen: Bowel Sounds Present, Soft, Non Tender, Non-Distended, No Hepato- splenomegaly Extremities: No edema Skin: No rashes, No breakdown Musculoskeletal: No Tenderness to Palpation of Joints or Extremities Lymphatic: No Cervical, Supraclavicular, or Inguinal Adenopathy Neurological: Cranial nerves II-XII grossly intact, Neuro grossly intact Psych/Mental Status: Normal Affect, Appropriate Microbiology Past 72 Hours 10/15/19 14:10 Blood Culture (Wb) - Right Hand Blood Culture - Preliminary 10/15/19 14:00 Blood Culture (Wb) - Anticubital Right Blood Culture - Preliminary Staphylococcus aureus 10/15/19 17:20 Mucosa - Nose Respiratory Panel (PCR) - Final 10/15/19 19:40 Urine, Clean Catch Legionella Antigen - Final 10/15/19 19:40 Urine, Clean Catch Streptococcus pneumoniae Antigen (M - F inal 10/15/19 12:35 Mucosa - Nose Influenza Types A,B Direct FA (GINA) - Final Laboratory Results 10/15/19 11:43: B-Natriuretic Peptide 8.6 10/15/19 14:00: Lactic Acid 0.6 10/15/19 19:40: Urine Opiates Screen POSITIVE H, Urine Methadone Screen NEGATIVE, Ur Barbiturates Screen NEGATIVE, Ur Phencyclidine Scrn NEGATIVE, Ur Amphetamines Screen POSITIVE H, U Methamphetamin-MDMA NEGATIVE, U Benzodiazepines Scrn NEGATIVE, Urine Cocaine Screen NEGATIVE, U Cannabinoids Screen NEGATIVE, Ur Drug Screen Comment 10/15/19 21:41: MRSA (PCR) Negative 10/16/19 09:38: Hepatitis A IgM Ab Pending, Hepatitis A Ab Total Pending, Hep Bs Antigen Pending, Hep B Core Total Ab Pending, Hep B Core IgM Ab Pending 10/16/19 09:38: Sodium 135 L, Potassium 4.2, Chloride 103, Carbon Dioxide 28.0, Anion Gap 4 L, BUN 6 L, Creatinine 0.51 L, Estim Creat Clear Calc 145.61, Est GFR (MDRD) Af Amer 190, Est GFR (MDRD) Non-Af 157, BUN/Creatinine Ratio 11.8, Glucose 125 H, Calcium 8.3 L, Total Bilirubin 0.50, AST 30, ALT 93 H, Alkaline Phosphatase 173 H, Total Protein 6.9, Albumin 2.0 L, Globulin 4.9 H, Albumin/Globulin Ratio 0.4 L 10/16/19 09:38: WBC 15.0 H, RBC 3.56 L, Hgb 9.8 L, Hct 30.5 L, MCV 85.7, MCH 27.5, MCHC 32.1, RDW Std Deviation 46.5 H, RDW Coeff of [place]by 14.6, Plt Count 319, MPV 9.5, Immature Gran % (Auto) 1.800 H, Neut % (Auto) 85.4 H, Lymph % (Auto) 6.9 L, [place] % (Auto) 4.5, Eos % (Auto) 1.1, Baso % (Auto) 0.3, Absolute Neuts (auto) 12.9 H, Absolute Lymphs (auto) 1.04, Nucleated RBC % 0 10/16/19 09:38: HIV 1&2 Antibody Pending Current Medications Acetaminophen (Tylenol) 500 - 1,000 mg PO Q6H PRN PRN PRN Reason: Mild pain or fever >99.6F Last Admin: 10/16/19 09:41 Dose: 1,000 mg Documented by: Al Hydroxide/Mg Hydroxide (Mylanta Ii) 30 ml PO Q6H PRN PRN PRN Reason: dyspesia Buprenorphine HCl (Buprenorphine Hcl) 2 mg SL Q2H PRN PRN PRN Reason: tachycardia/diaphoresis, vomit Last Admin: 10/16/19 09:42 Dose: 2 mg Documented by: Clonidine (Catapres) 0.1 mg PO Q2H PRN PRN PRN Reason: Hot/Cold Sweats or Anxiety Last Admin: 10/16/19 09:42 Dose: 0.1 mg Documented by: Folic Acid (Folic Acid) 1 mg PO DAILY@0800 [facility] Last Admin: 10/16/19 09:36 Dose: 1 mg Documented by: Guaifenesin (Mucinex) 600 mg PO BID [facility] Last Admin: 10/16/19 09:36 Dose: 600 mg Documented by: Hydroxyzine Pamoate (Vistaril Pamoate Capsule) 25 mg PO Q6H PRN PRN PRN Reason: Mild Anxiety Last Admin: 10/16/19 01:47 Dose: 25 mg Documented by: Sodium Chloride () 1,000 mls @ 100 mls/hr IV .Q10H [facility] Last Admin: 10/16/19 03:04 Dose: 100 mls/hr Documented by: Piperacillin Sod/Tazobactam (Sod 3.375 gm/ Sodium Chloride) 50 mls @ 12.5 mls/hr IV Q8 [facility] Last Infusion: 10/16/19 11:19 Dose: Infused Documented by: Loperamide HCl (Imodium) 2 - 4 mg PO UD PRN PRN Reason: LOOSE STOOLS Prednisone () 20 mg PO DAILY@0800 [facility] Last Admin: 10/16/19 09:36 Dose: 20 mg Documented by: Multivit/Folic Acid/Iron (Prenatabs Fa) 1 tablet PO DAILY@0800 [facility] Last Admin: 10/16/19 09:36 Dose: 1 tablet Documented by: Gerardo (Senokot) 1 tablet PO QHS PRN PRN Reason: Constipation Sodium Chloride () 10 - 40 ml IV UD PRN PRN Reason: SALINE FLUSH STROKE Vital Signs/Narrative: Vital Signs Temp Pulse Resp BP Pulse Ox 10/16/19 09:50 98.3 F 104 H 20 H 132/76 H 98 Medical Necessity - Tobacco Use Smoking Status: Never smoker Tobacco Use: Secondhand Assessment/Plan All Active Problems (Last Reviewed 10/16/19 @ 00:28 by Gladys Arreguin DO) PNA (pneumonia) (Acute) Hyponatremia (Acute) Abnormal LFTs (Acute) Normochromic normocytic anemia (Acute) Pleurisy (Acute) Chronic cholecystitis with calculus (Resolved) 1. Acute Hypoxia secondary to #2, on 2L oxygen Will continue on breathing treatments, encourage use of incentive spirometer, wean off for SPO2 more than 94% 2. Sepsis secondary to bilateral pneumonia On Zosyn, WBC is improving, no fevers 3. MSSA bacteremia, h/o IV drug abuse, 2D-echo is pending 4. Opioid and methamphetamine drug use disorder- advised to quit On Suboxone, Obgyn on board with this and assisting in managing. Hepatitis panel is pending 5. Cyesis, , 23 week gestation, + movements OBGYN following 6. DVT PPx- early ambulation Code Visit Inpatient E&M: 99167 Subs Hosp L2
[2019-10-16 13:10] LABS: HIV - WCH Non-Reactive (Nonreactive)
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
--- NOTE | 2019-10-17 01:53 | NURSING ---
FHR 130-135 via doppler in LLQ @ [id number]
[2019-10-17 02:11] VITALS: BP 113/76; PULSE 75; RESP 20; TEMP 36.6; O2SAT 98
[2019-10-17] MEDS: Acetaminophen 500 MG Tablet PO ×2 (02:16→08:02)
[2019-10-17 06:23] LABS: Absolute Lymphocyte Count 1.47 X10^3/uL (0.83-4.51); Absolute Neutrophil Count 9.6 X10^3/uL (2.0-7.7); Basophil# 0.04 X10^3/uL; Basophil% 0.3 % (0-1); Eosinophil# 0.16 X10^3/uL; Eosinophils% 1.3 % (0-5); Hematocrit 29.3 % (37-47); Hemoglobin 9.4 g/dL (12.0-15.0); Lymphocyte # 1.47 X10^3/ul (4.0); Lymphocyte % 11.9 % (19-41); Mean Corp Hgb Conc 32.1 g/dL (32-36); Mean Corpuscular Hgb 27.5 pg (27.0-32.0); Mean Corpuscular Volume 85.7 fL (81-99); Mean Platelet Vol. 9.7 fl (6.2-12.0); Monocyte# 0.95 X10^3/uL; Monocyte% 7.7 % (0-10); NRBC Flagged by Analyzer 0 % (0-5); Neutrophil # 9.55 X10^3/uL (2.7-7.7); Neutrophil % 77.7 % (47-70); Platelet Count 304 K/mm3 (150-450); RBC Distribution Width CV 14.8 % (11.6-14.6); RBC Distribution Width SD 46.1 fl (35.1-43.9); Red Blood Count 3.42 M/mm3 (4.2-5.4); White Blood Count 12.3 K/mm3 (4.4-11.0)
[2019-10-17 07:04] LABS: Anion Gap 6 (5-15); BUN 7 mg/dL (7-18); BUN/Creat Ratio 20.1 RATIO (10-20); Calcium,Total 8.3 mg/dL (8.5-10.1); Chloride 105 mmol/L (98-107); Creatinine, Serum 0.35 mg/dL (0.55-1.02); EST Glomerular Filtration Rate 242 mL/min (>60); Est Glom Filt Rate - Afr Amer 292 mL/min (>60); Estimated Creatinine Clearance 212.18 ml/min; Glucose 71 mg/dL (74-106); Potassium 3.9 mmol/L (3.5-5.1); Sodium Level 137 mmol/L (136-145)
[2019-10-17 07:42] VITALS: PULSE 94; RESP 28; O2SAT 97
[2019-10-17] MEDS: Albuterol 2.5 MG/3 ML VIAL.NEB. INHALATION ×3 (07:42→23:57)
--- NOTE | 2019-10-17 07:42 | CPS ---
RN from at bedside checking on patient, PEP not done at this time. Encouraged patient to work on PEP after.
--- NOTE | 2019-10-17 07:43 | NURSING ---
Pt BGT 71 at AM blood draw- juice given at change of shift. pt sitting up in bed. Assisted with ordering breakfast.
--- NOTE | 2019-10-17 07:44 | NURSING ---
Continous spo2 alarming at the nurses station at 76%. pt is walking back from bathroom. This nurse did a spot check and spo2 was 97%. Pt is painful. CPs in with pt now. This nurse will give tylenol.
--- NOTE | 2019-10-17 07:56 | NURSING ---
FHT 156 AT 0750. PT encourage and instructed on taking deep breaths to allow more oxygen to baby. voices understanding.
[2019-10-17 08:10] VITALS: BP 124/80; PULSE 88; RESP 20; TEMP 36.7; O2SAT 98
--- NOTE | 2019-10-17 08:49 | PCM.PN.OB ---
Patient Problems: Active and Suspected Problems (Last Reviewed 10/16/19 @ 00:28 by Gladys Arreguin DO) PNA (pneumonia) (Acute) Hyponatremia (Acute) Abnormal LFTs (Acute) Normochromic normocytic anemia (Acute) Pleurisy (Acute) Subjective: pt seen at bedside this morning Dr. Dial at bedside as well. pt still c/o pain and difficulty speaking and ambulating without SOB. pt reports she felt better yesterday after steroids. pt denies VB, LOF, Cramping. pt feels occasional FM. Doppler done this morning- pt reports FHR 150s. - Physical Exam Vitals/I&O's: Vital Signs Temp Pulse Resp BP Pulse Ox 98.1 F 88 20 H 124/80 H 98 10/17/19 08:10 10/17/19 08:10 10/17/19 08:10 10/17/19 08:10 10/17/19 08:10 Oxygen Flow Rate (L/min) 2 Oxygen Delivery Method Nasal Cannula Weight: 97.658 kg Body Mass Index (BMI) 36.9 Intake and Output for Last 24 Hours 10/15/19 10/16/19 10/17/19 23:59 23:59 23:59 Intake Total 1555 / 1555 3488.33 / 3488.33 350 / 350 Output Total 800 / 800 Balance 1555 / 1555 2688.33 / 2688.33 350 / 350 General: Alert, Oriented x3 Lungs: Clear to auscultation, Diminished - per Dr. Dial Microbiology Past 72 Hours 10/15/19 14:10 Blood Culture (Wb) - Right Hand Blood Culture - Preliminary 10/15/19 14:00 Blood Culture (Wb) - Anticubital Right Blood Culture - Preliminary Staphylococcus aureus 10/15/19 17:20 Mucosa - Nose Respiratory Panel (PCR) - Final 10/15/19 19:40 Urine, Clean Catch Legionella Antigen - Final 10/15/19 19:40 Urine, Clean Catch Streptococcus pneumoniae Antigen (M - Final 10/15/19 12:35 Mucosa - Nose Influenza Types A,B Direct FA (GINA) - Final Laboratory Results 10/16/19 09:38: Hepatitis A IgM Ab Pending, Hepatitis A Ab Total Pending, Hep Bs Antigen Pending, Hep B Core Total Ab Pending, Hep B Core IgM Ab Pending 10/16/19 09:38: Sodium 135 L, Potassium 4.2, Chloride 103, Carbon Dioxide 28.0, Anion Gap 4 L, BUN 6 L, Creatinine 0.51 L, Estim Creat Clear Calc 145.61, Est GFR (MDRD) Af Amer 190, Est GFR (MDRD) Non-Af 157, BUN/Creatinine Ratio 11.8, Glucose 125 H, Calcium 8.3 L, Total Bilirubin 0.50, AST 30, ALT 93 H, Alkaline Phosphatase 173 H, Total Protein 6.9, Albumin 2.0 L, Globulin 4.9 H, Albumin/Globulin Ratio 0.4 L 10/16/19 09:38: WBC 15.0 H, RBC 3.56 L, Hgb 9.8 L, Hct 30.5 L, MCV 85.7, MCH 27.5, MCHC 32.1, RDW Std Deviation 46.5 H, RDW Coeff of Colby 14.6, Plt Count 319, MPV 9.5, Immature Gran % (Auto) 1.800 H, Neut % (Auto) 85.4 H, Lymph % (Auto) 6.9 L, [place] % (Auto) 4.5, Eos % (Auto) 1.1, Baso % (Auto) 0.3, Absolute Neuts (auto) 12.9 H, Absolute Lymphs (auto) 1.04, Nucleated RBC % 0 10/16/19 09:38: HIV 1&2 Antibody Non-Reactive 10/17/19 04:50: WBC 12.3 H, RBC 3.42 L, Hgb 9.4 L, Hct 29.3 L, MCV 85.7, MCH 27.5, MCHC 32.1, RDW Std Deviation 46.1 H, RDW Coeff of [place] 14.8 H, Plt Count 304, MPV 9.7, Immature Gran % (Auto) 1.100 H, Neut % (Auto) 77.7 H, Lymph % (Auto) 11.9 L, [place] % (Auto) 7.7, Eos % (Auto) 1.3, Baso % (Auto) 0.3, Absolute Neuts (auto) 9.6 H, Absolute Lymphs (auto) 1.47, Nucleated RBC % 0 10/17/19 04:50: Sodium 137, Potassium 3.9, Chloride 105, Carbon Dioxide 26.0, Anion Gap 6, BUN 7, Creatinine 0.35 L, Estim Creat Clear Calc 212.18, Est GFR (MDRD) Af Amer 292, Est GFR (MDRD) Non-Af 242, BUN/Creatinine Ratio 20.1 H, Glucose 71 L, Calcium 8.3 L Current Medications Acetaminophen (Tylenol) 500 - 1,000 mg PO Q6H PRN PRN PRN Reason: Mild pain or fever >99.6F Last Admin: 10/17/19 08:02 Dose: 1,000 mg Documented by: Al Hydroxide/Mg Hydroxide (Mylanta Ii) 30 ml PO Q6H PRN PRN PRN Reason: dyspesia Albuterol Sulfate (Ventolin Aerosols) 2.5 mg INHALATION Q2H PRN PRN PRN Reason: SOB &/OR WHEEZING Last Admin: 10/17/19 07:42 Dose: 2.5 mg Documented by: Buprenorphine HCl (Buprenorphine Hcl) 2 mg SL Q2H PRN PRN PRN Reason: tachycardia/diaphoresis, vomit Last Admin: 10/16/19 18:37 Dose: 2 mg Documented by: Clonidine (Catapres) 0.1 mg PO Q2H PRN PRN PRN Reason: Hot/Cold Sweats or Anxiety Last Admin: 10/16/19 18:37 Dose: 0.1 mg Documented by: Folic Acid (Folic Acid) 1 mg PO DAILY@0800 [facility] Last Admin: 10/16/19 09:36 Dose: 1 mg Documented by: Guaifenesin (Mucinex) 600 mg PO BID [facility] Last Admin: 10/16/19 21:08 Dose: 600 mg Documented by: Hydroxyzine Pamoate (Vistaril Pamoate Capsule) 25 mg PO Q6H PRN PRN PRN Reason: Mild Anxiety Last Admin: 10/16/19 18:37 Dose: 25 mg Documented by: Piperacillin Sod/Tazobactam (Sod 3.375 gm/ Sodium Chloride) 50 mls @ 12.5 mls/hr IV Q8 [facility] Last Admin: 10/17/19 05:08 Dose: 12.5 mls/hr Documented by: Loperamide HCl (Imodium) 2 - 4 mg PO UD PRN PRN Reason: LOOSE STOOLS Prednisone () 20 mg PO DAILY@0800 [facility] Last Admin: 10/16/19 09:36 Dose: 20 mg Documented by: Multivit/Folic Acid/Iron (Prenatabs Fa) 1 tablet PO DAILY@0800 [facility] Last Admin: 10/16/19 09:36 Dose: 1 tablet Documented by: Gerardo (Senokot) 1 tablet PO QHS PRN PRN Reason: Constipation Sodium Chloride () 10 - 40 ml IV UD PRN PRN Reason: SALINE FLUSH Medical Necessity - Tobacco Use Smoking Status: Never smoker Tobacco Use: Secondhand Assessment/Plan All Active Problems (Last Reviewed 10/16/19 @ 00:28 by Gladys Arreguin DO) PNA (pneumonia) (Acute) Hyponatremia (Acute) Abnormal LFTs (Acute) Normochromic normocytic anemia (Acute) Pleurisy (Acute) Chronic cholecystitis with calculus (Resolved) HD#2 24yo @ 23 weeks- Pneumonia, Opioid and Meth addiction/use, tachypnea 1) attempted to call Dr. Escamilla- reached voicemail- will need to call tomorrow to arrange maintenance buprenorphine and treatment once discharged 2) will start decreasing Oxygen per Medicine 3) continue albuterol, zosyn, steriods 4) start PO iron 5) HEP C still pending 6) urine drug screening to continue- significant other in room who signed out AMA this weekend- can't r/o continued use during hospitalization 7) Continue daily Doppler for FHR
--- NOTE | 2019-10-17 08:55 | PCM.PN.HOSP ---
Patient Problems: Active and Suspected Problems (Last Reviewed 10/16/19 @ 00:28 by Gladys Arreguin DO) PNA (pneumonia) (Acute) Hyponatremia (Acute) Abnormal LFTs (Acute) Normochromic normocytic anemia (Acute) Pleurisy (Acute) Reason for Visit: Pneumonia/ Subjective: Patient was seen and examined. She remains short of breath at rest and with conversation. Denies fever or chills or chest pain. Objective: Physical exam: General: Alert, Oriented x3, Cooperative, - - in mild respiratory distress, on 2L oxygen HEENT: Atraumatic, PERRLA, EOMI, Normocephalic Oral: Moist Mucosa Neck: Supple Lungs: Diminished - no wheezes heard Cardiovascular: Regular rate, Regular Rhythm, Normal S1, Normal S2, No murmurs Abdomen: Bowel Sounds Present, Soft, Non Tender, Non-Distended, No Hepato-splenomegaly Extremities: No edema Skin: No rashes, No breakdown Musculoskeletal: No Tenderness to Palpation of Joints or Extremities Lymphatic: No Cervical, Supraclavicular, or Inguinal Adenopathy Neurological: Cranial nerves II-XII grossly intact, Neuro grossly intact Psych/Mental Status: Normal Affect, Appropriate Vitals/I&O's: Vital Signs Temp Pulse Resp BP Pulse Ox 98.1 F 88 20 H 124/80 H 98 10/17/19 08:10 10/17/19 08:10 10/17/19 08:10 10/17/19 08:10 10/17/19 08:10 Oxygen Flow Rate (L/min) 2 Oxygen Delivery Method Nasal Cannula Weight: 97.658 kg Body Mass Index (BMI) 36.9 Intake and Output for Last 24 Hours 10/15/19 10/16/19 10/17/19 23:59 23:59 23:59 Intake Total 1555 / 1555 3488.33 / 3488.33 350 / 350 Output Total 800 / 800 Balance 1555 / 1555 2688.33 / 2688.33 350 / 350 Microbiology Past 72 Hours 10/15/19 14:10 Blood Culture (Wb) - Right Hand Blood Culture - Preliminary 10/15/19 14:00 Blood Culture (Wb) - Anticubital Right Blood Culture - Preliminary Staphylococcus aureus 10/15/19 17:20 Mucosa - Nose Respiratory Panel (PCR) - Final 10/15/19 19:40 Urine, Clean Catch Legionella Antigen - Final 10/15/19 19:40 Urine, Clean Catch Streptococcus pneumoniae Antigen (M - Final 10/15/19 12:35 Mucosa - Nose Influenza Types A,B Direct FA (GINA) - Final Laboratory Results 10/16/19 09:38: Hepatitis A IgM Ab Pending, Hepatitis A Ab Total Pending, Hep Bs Antigen Pending, Hep B Core Total Ab Pending, Hep B Core IgM Ab Pending 10/16/19 09:38: Sodium 135 L, Potassium 4.2, Chloride 103, Carbon Dioxide 28.0, Anion Gap 4 L, BUN 6 L, Creatinine 0.51 L, Estim Creat Clear Calc 145.61, Est GFR (MDRD) Af Amer 190, Est GFR (MDRD) Non-Af 157, BUN/Creatinine Ratio 11.8, Glucose 125 H, Calcium 8.3 L, Total Bilirubin 0.50, AST 30, ALT 93 H, Alkaline Phosphatase 173 H, Total Protein 6.9, Albumin 2.0 L, Globulin 4.9 H, Albumin/Globulin Ratio 0.4 L 10/16/19 09:38: WBC 15.0 H, RBC 3.56 L, Hgb 9.8 L, Hct 30.5 L, MCV 85.7, MCH 27.5, MCHC 32.1, RDW Std Deviation 46.5 H, RDW Coeff of Colby 14.6, Plt Count 319, MPV 9.5, Immature Gran % (Auto) 1.800 H, Neut % (Auto) 85.4 H, Lymph % (Auto) 6.9 L, [place] % (Auto) 4.5, Eos % (Auto) 1.1, Baso % (Auto) 0.3, Absolute Neuts (auto) 12.9 H, Absolute Lymphs (auto) 1.04, Nucleated RBC % 0 10/16/19 09:38: HIV 1&2 Antibody Non-Reactive 10/17/19 04:50: WBC 12.3 H, RBC 3.42 L, Hgb 9.4 L, Hct 29.3 L, MCV 85.7, MCH 27.5, MCHC 32.1, RDW Std Deviation 46.1 H, RDW Coeff of [place] 14.8 H, Plt Count 304, MPV 9.7, Immature Gran % (Auto) 1.100 H, Neut % (Auto) 77.7 H, Lymph % (Auto) 11.9 L, [place] % (Auto) 7.7, Eos % (Auto) 1.3, Baso % (Auto) 0.3, Absolute Neuts (auto) 9.6 H, Absolute Lymphs (auto) 1.47, Nucleated RBC % 0 10/17/19 04:50: Sodium 137, Potassium 3.9, Chloride 105, Carbon Dioxide 26.0, Anion Gap 6, BUN 7, Creatinine 0.35 L, Estim Creat Clear Calc 212.18, Est GFR (MDRD) Af Amer 292, Est GFR (MDRD) Non-Af 242, BUN/Creatinine Ratio 20.1 H, Glucose 71 L, Calcium 8.3 L Current Medications Acetaminophen (Tylenol) 500 - 1,000 mg PO Q6H PRN PRN PRN Reason: Mild pain or fever >99.6F Last Admin: 10/17/19 08:02 Dose: 1,000 mg Documented by: Al Hydroxide/Mg Hydroxide (Mylanta Ii) 30 ml PO Q6H PRN PRN PRN Reason: dyspesia Albuterol Sulfate (Ventolin Aerosols) 2.5 mg INHALATION Q2H PRN PRN PRN Reason: SOB &/OR WHEEZING Last Admin: 10/17/19 07:42 Dose: 2.5 mg Documented by: Buprenorphine HCl (Buprenorphine Hcl) 2 mg SL Q2H PRN PRN PRN Reason: tachycardia/diaphoresis, vomit Last Admin: 10/16/19 18:37 Dose: 2 mg Documented by: Clonidine (Catapres) 0.1 mg PO Q2H PRN PRN PRN Reason: Hot/Cold Sweats or Anxiety Last Admin: 10/16/19 18:37 Dose: 0.1 mg Documented by: Folic Acid (Folic Acid) 1 mg PO DAILY@0800 [facility] Last Admin: 10/16/19 09:36 Dose: 1 mg Documented by: Guaifenesin (Mucinex) 600 mg PO BID [facility] Last Admin: 10/16/19 21:08 Dose: 600 mg Documented by: Hydroxyzine Pamoate (Vistaril Pamoate Capsule) 25 mg PO Q6H PRN PRN PRN Reason: Mild Anxiety Last Admin: 10/16/19 18:37 Dose: 25 mg Documented by: Piperacillin Sod/Tazobactam (Sod 3.375 gm/ Sodium Chloride) 50 mls @ 12.5 mls/hr IV Q8 [facility] Last Admin: 10/17/19 05:08 Dose: 12.5 mls/hr Documented by: Loperamide HCl (Imodium) 2 - 4 mg PO UD PRN PRN Reason: LOOSE STOOLS Prednisone () 20 mg PO DAILY@0800 [facility] Last Admin: 10/16/19 09:36 Dose: 20 mg Documented by: Multivit/Folic Acid/Iron (Prenatabs Fa) 1 tablet PO DAILY@0800 [facility] Last Admin: 10/16/19 09:36 Dose: 1 tablet Documented by: Senna (Senokot) 1 tablet PO QHS PRN PRN Reason: Constipation Sodium Chloride () 10 - 40 ml IV UD PRN PRN Reason: SALINE FLUSH STROKE Vital Signs/Narrative: Vital Signs Temp Pulse Resp BP Pulse Ox 10/17/19 08:10 98.1 F 88 20 H 124/80 H 98 10/17/19 07:42 94 28 H 97 Medical Necessity - Tobacco Use Smoking Status: Never smoker Tobacco Use: Secondhand Assessment/Plan All Active Problems (Last Reviewed 10/16/19 @ 00:28 by Gladys Arreguin DO) PNA (pneumonia) (Acute) Hyponatremia (Acute) Abnormal LFTs (Acute) Normochromic normocytic anemia (Acute) Pleurisy (Acute) Chronic cholecystitis with calculus (Resolved) 1. Acute Hypoxia secondary to #2, on 2L oxygen Will continue on breathing treatments, encourage use of incentive spirometer, wean off for SPO2 more than 94% 2. Sepsis secondary to bilateral pneumonia On Zosyn IV, WBC is improving, no fevers 3. MSSA bacteremia, h/o IV drug abuse, 2D-echo is pending 4. Opioid and methamphetamine drug use disorder- advised to quit On Suboxone, Obgyn on board with this and assisting in managing. Hepatitis panel is pending 5. Cyesis, , 23 week gestation, + movements OBGYN following 6. DVT PPx- early ambulation Code Visit Inpatient E&M: 65219 Subs Hosp L2
--- NOTE | 2019-10-17 09:09 | NURSING ---
requesting to wait until able to eat prior to taking AM meds-
--- NOTE | 2019-10-17 09:32 | PCM.PN.PUL ---
Patient Problems: Active and Suspected Problems (Last Reviewed 10/16/19 @ 00:28 by Gladys Arreguin DO) PNA (pneumonia) (Acute) Hyponatremia (Acute) Abnormal LFTs (Acute) Normochromic normocytic anemia (Acute) Pleurisy (Acute) Subjective: Patient did okay overnight. Patient reporting significant improvement in pleurisy with initiation of prednisone therapy. However, patient is still having a hard time taking a deep breath. Patient denies any significant production with coughing. Objective: Echocardiogram was completed. EF of 65% with no significant vegetations reported. - Physical Exam Vitals/I&O's: Vital Signs Temp Pulse Resp BP Pulse Ox 36.7 C 88 20 H 124/80 H 98 10/17/19 08:10 10/17/19 08:10 10/17/19 08:10 10/17/19 08:10 10/17/19 08:10 Oxygen Flow Rate (L/min) 2 Oxygen Delivery Method Nasal Cannula Weight: 97.658 kg Body Mass Index (BMI) 36.9 Intake and Output for Last 24 Hours 10/15/19 10/16/19 10/17/19 23:59 23:59 23:59 Intake Total 1555 / 1555 3488.33 / 3488.33 350 / 350 Output Total 800 / 800 Balance 1555 / 1555 2688.33 / 2688.33 350 / 350 General: Alert, Oriented x3, Cooperative, - - Obese. No conversational dyspnea. HEENT: Atraumatic, PERRLA, EOMI, Normocephalic, - - No scleral icterus or injection noted Oral: Moist Mucosa, No Gingival or Mucosal Lesions/ Ulcerations Neck: Supple, No JVD, No Nodes, Trachea Midline Lungs: No rhonchi, No wheeze, No rales, Diminished, - - Minimal effort. Cardiovascular: Regular rate, Regular Rhythm, Normal S1, Normal S2, No murmurs, No rub noted, No Gallop Abdomen: Bowel Sounds Present, Soft, Non Tender, Non-Distended, Obese Extremities: No clubbing, No cyanosis, Edema - Trace lower extremity Skin: No rashes, No breakdown Musculoskeletal: No Tenderness to Palpation of Joints or Extremities Lymphatic: No Cervical, Supraclavicular, or Inguinal Adenopathy Neurological: Cranial nerves II-XII grossly intact, Neuro grossly intact, Motor Exam 5/5 strength throughout Psych/Mental Status: Appropriate, Flat Affect Microbiology Past 72 Hours 10/15/19 14:10 Blood Culture (Wb) - Right Hand Blood Culture - Preliminary 10/15/19 14:00 Blood Culture (Wb) - Anticubital Right Blood Culture - Preliminary Staphylococcus aureus 10/15/19 17:20 Mucosa - Nose Respiratory Panel (PCR) - Final 10/15/19 19:40 Urine, Clean Catch Legionella Antigen - Final 10/15/19 19:40 Urine, Clean Catch Streptococcus pneumoniae Antigen (M - Final 10/15/19 12:35 Mucosa - Nose Influenza Types A,B Direct FA (GINA) - Final Laboratory Results 10/16/19 09:38: Hepatitis A IgM Ab Pending, Hepatitis A Ab Total Pending, Hep Bs Antigen Pending, Hep B Core Total Ab Pending, Hep B Core IgM Ab Pending 10/16/19 09:38: Sodium 135 L, Potassium 4.2, Chloride 103, Carbon Dioxide 28.0, Anion Gap 4 L, BUN 6 L, Creatinine 0.51 L, Estim Creat Clear Calc 145.61, Est GFR (MDRD) Af Amer 190, Est GFR (MDRD) Non-Af 157, BUN/Creatinine Ratio 11.8, Glucose 125 H, Calcium 8.3 L, Total Bilirubin 0.50, AST 30, ALT 93 H, Alkaline Phosphatase 173 H, Total Protein 6.9, Albumin 2.0 L, Globulin 4.9 H, Albumin/Globulin Ratio 0.4 L 10/16/19 09:38: WBC 15.0 H, RBC 3.56 L, Hgb 9.8 L, Hct 30.5 L, MCV 85.7, MCH 27.5, MCHC 32.1, RDW Std Deviation 46.5 H, RDW Coeff of [place] 14.6, Plt Count 319, MPV 9.5, Immature Gran % (Auto) 1.800 H, Neut % (Auto) 85.4 H, Lymph % (Auto) 6.9 L, [place] % (Auto) 4.5, Eos % (Auto) 1.1, Baso % (Auto) 0.3, Absolute Neuts (auto) 12.9 H, Absolute Lymphs (auto) 1.04, Nucleated RBC % 0 10/16/19 09:38: HIV 1&2 Antibody Non-Reactive 10/17/19 04:50: WBC 12.3 H, RBC 3.42 L, Hgb 9.4 L, Hct 29.3 L, MCV 85.7, MCH 27.5, MCHC 32.1, RDW Std Deviation 46.1 H, RDW Coeff of [place] 14.8 H, Plt Count 304, MPV 9.7, Immature Gran % (Auto) 1.100 H, Neut % (Auto) 77.7 H, Lymph % (Auto) 11.9 L, [place] % (Auto) 7.7, Eos % (Auto) 1.3, Baso % (Auto) 0.3, Absolute Neuts (auto) 9.6 H, Absolute Lymphs (auto) 1.47, Nucleated RBC % 0 10/17/19 04:50: Sodium 137, Potassium 3.9, Chloride 105, Carbon Dioxide 26.0, Anion Gap 6, BUN 7, Creatinine 0.35 L, Estim Creat Clear Calc 212.18, Est GFR (MDRD) Af Amer 292, Est GFR (MDRD) Non-Af 242, BUN/Creatinine Ratio 20.1 H, Glucose 71 L, Calcium 8.3 L Current Medications Acetaminophen (Tylenol) 500 - 1,000 mg PO Q6H PRN PRN PRN Reason: Mild pain or fever >99.6F Last Admin: 10/17/19 08:02 Dose: 1,000 mg Documented by: Al Hydroxide/Mg Hydroxide (Mylanta Ii) 30 ml PO Q6H PRN PRN PRN Reason: dyspesia Albuterol Sulfate (Ventolin Aerosols) 2.5 mg INHALATION Q4H [facility] Stop: 10/18/19 09:01 Buprenorphine HCl (Buprenorphine Hcl) 2 mg SL Q2H PRN PRN PRN Reason: tachycardia/diaphoresis, vomit Last Admin: 10/16/19 18:37 Dose: 2 mg Documented by: Clonidine (Catapres) 0.1 mg PO Q2H PRN PRN PRN Reason: Hot/Cold Sweats or Anxiety Last Admin: 10/16/19 18:37 Dose: 0.1 mg Documented by: Ferrous Sulfate (Ferrous Sulfate) 325 mg PO 1200,1700 [facility] Folic Acid (Folic Acid) 1 mg PO DAILY@0800 [facility] Last Admin: 10/16/19 09:36 Dose: 1 mg Documented by: Guaifenesin (Mucinex) 600 mg PO BID [facility] Last Admin: 10/16/19 21:08 Dose: 600 mg Documented by: Hydroxyzine Pamoate (Vistaril Pamoate Capsule) 25 mg PO Q6H PRN PRN PRN Reason: Mild Anxiety Last Admin: 10/16/19 18:37 Dose: 25 mg Documented by: Piperacillin Sod/Tazobactam (Sod 3.375 gm/ Sodium Chloride) 50 mls @ 12.5 mls/hr IV Q8 [facility] Last Admin: 10/17/19 05:08 Dose: 12.5 mls/hr Documented by: Loperamide HCl (Imodium) 2 - 4 mg PO UD PRN PRN Reason: LOOSE STOOLS Prednisone () 20 mg PO DAILY@0800 [facility] Last Admin: 10/16/19 09:36 Dose: 20 mg Documented by: Multivit/Folic Acid/Iron (Prenatabs Fa) 1 tablet PO DAILY@0800 [facility] Last Admin: 10/16/19 09:36 Dose: 1 tablet Documented by: Gerardo (Senokot) 1 tablet PO QHS PRN PRN Reason: Constipation Sodium Chloride () 10 - 40 ml IV UD PRN PRN Reason: SALINE FLUSH Medical Necessity - Tobacco Use Smoking Status: Never smoker Tobacco Use: Secondhand Assessment/Plan All Active Problems (Last Reviewed 10/16/19 @ 00:28 by Gladys Arreguin DO) PNA (pneumonia) (Acute) Hyponatremia (Acute) Abnormal LFTs (Acute) Normochromic normocytic anemia (Acute) Pleurisy (Acute) Chronic cholecystitis with calculus (Resolved) RECOMMENDATIONS: 1. Consider repeat blood cultures tomorrow to see if they clear 2. Continue with steroid therapy 3. Wean oxygen as tolerated 4. Encourage incentive spirometer and activity as tolerated IMPRESSIONS: 1. Acute hypoxic respiratory insufficiency secondary to pneumonia/pleurisy Patient with bilateral infiltrates and dependent areas of the lung. Given IV drug use and gram-positive's in the blood, this may be secondary to endocarditis. Transthoracic echocardiogram does not show any significant vegetations, but if patient does not clear her blood cultures, DINA may be indicated. Respiratory status appears to be relatively stable at this time. Did instruct the patient the need for incentive spirometer compliance. 2. 22 weeks OB is following. Fetus is not currently viable, but need to be aware for medications. Appears to be MSSA, likely secondary to IV drug use. 3. Obesity/IV drug use/polysubstance abuse/poor primary care Complicates care, management, recovery and prognosis. Defer to hospitalist on medical stabilization for narcotic abuse. Patient denies any alcohol abuse. Code Visit Inpatient E&M: 32197 Subs Hosp L2
[2019-10-17] MEDS: Ferrous Sulfate 325 MG Tablet PO ×2 (09:50→21:30)
[2019-10-17] MEDS: predniSONE 20 MG Tablet PO (09:50)
[2019-10-17] MEDS: guaiFENesin 600 MG Tablet PO ×2 (09:50→21:30)
[2019-10-17] MEDS: Folic Acid 1 MG Tablet PO (09:50)
[2019-10-17] MEDS: Buprenorphine HCl 2 MG TAB.SUBL SL ×2 (09:55→14:25)
[2019-10-17 14:00] VITALS: BP 116/81; PULSE 83; RESP 18; TEMP 36.6; O2SAT 93
[2019-10-17] MEDS: Prenatal Vits Tablet 1 TABLET PO (14:13)
--- NOTE | 2019-10-17 15:04 | NURSING ---
At 1400 OB nurse did FHT 135 (mid to left lower right abd). assisted pt up to restroom and collected clean catch urine. Given to [employer].
--- NOTE | 2019-10-17 16:15 | NURSING ---
Pt aware of need for sputum culture, but states she is unable to provide. Also, attempted to give urine sample for screen ordered, however, correct tube was not used and pt notified of need for another sample- understanding verbalized.
--- NOTE | 2019-10-17 17:47 | NURSING ---
Pt requested ealier this shift not to be awakened if not absolutely necessary- iron scheduled but pt has not eaten her dinner yet. Pt resting in recliner, eyes closed, breathing even and unlabored.
[2019-10-17 19:58] LABS: Amphetamine Urine VISTA NEGATIVE (<1000 ng/mL); Barbiturate Urine VISTA NEGATIVE (< 200 ng/mL); Benzodiazepine Urine VISTA NEGATIVE (< 200 ng/mL); Cocaine Urine VISTA NEGATIVE (< 300 ng/mL); Ecstacy Urine VISTA NEGATIVE (< 500 ng/mL); Methadone Urine VISTA NEGATIVE (< 300 ng/mL); PCP Urine VISTA NEGATIVE (< 25 ng/mL); THC Urine VISTA NEGATIVE (< 50 ng/mL); Vista UDS pH Range 7
[2019-10-17 21:31] VITALS: BP 108/63; PULSE 88; RESP 16; TEMP 36.5; O2SAT 96
[2019-10-17 23:57] VITALS: PULSE 78; RESP 18
[2019-10-18] VITALS (7 sets, daily range): BP systolic 99–118; BP diastolic 67–75; PULSE 68–84; RESP 18–20; TEMP 36.4–36.8; O2SAT 93–97
--- NOTE | 2019-10-18 02:00 | NURSING ---
heart tones via doppler in rt lower quad, FHR 140 with acceleration to 155, no decelerations noted, pt denies any contractions or pain, abd soft, movement palpated while at bedside.
[2019-10-18] MEDS: Acetaminophen 500 MG Tablet PO ×3 (06:27→21:43)
[2019-10-18 06:30] LABS: Absolute Lymphocyte Count 2.02 X10^3/uL (0.83-4.51); Absolute Neutrophil Count 12.3 X10^3/uL (2.0-7.7); Basophil# 0.04 X10^3/uL; Basophil% 0.3 % (0-1); Eosinophil# 0.14 X10^3/uL; Eosinophils% 0.9 % (0-5); Hematocrit 28.8 % (37-47); Hemoglobin 9.4 g/dL (12.0-15.0); Lymphocyte # 2.02 X10^3/ul (4.0); Mean Corp Hgb Conc 32.6 g/dL (32-36); Mean Corpuscular Hgb 27.6 pg (27.0-32.0); Mean Corpuscular Volume 84.7 fL (81-99); Mean Platelet Vol. 9.5 fl (6.2-12.0); Monocyte# 0.86 X10^3/uL; Monocyte% 5.5 % (0-10); NRBC Flagged by Analyzer 0 % (0-5); Neutrophil # 12.26 X10^3/uL (2.7-7.7); Neutrophil % 78.8 % (47-70); Platelet Count 378 K/mm3 (150-450); RBC Distribution Width CV 14.7 % (11.6-14.6); RBC Distribution Width SD 45.2 fl (35.1-43.9); White Blood Count 15.6 K/mm3 (4.4-11.0)
[2019-10-18 06:54] LABS: ALB/GLOB Ratio 0.5 RATIO (0.9-2.4); AST(SGOT) 29 U/L (15-37); Alanine Aminotransfer ALT/SGPT 76 U/L (13-56); Alkaline Phosphatase 203 U/L (45-117); Anion Gap 6 (5-15); BUN 8 mg/dL (7-18); BUN/Creat Ratio 20.3 RATIO (10-20); Calcium,Total 8.2 mg/dL (8.5-10.1); Chloride 103 mmol/L (98-107); Creatinine, Serum 0.39 mg/dL (0.55-1.02); EST Glomerular Filtration Rate 210 mL/min (>60); Est Glom Filt Rate - Afr Amer 254 mL/min (>60); Globulin 4.3 g/dL (2.2-4.2); Glucose 75 mg/dL (74-106); Protein, Total 6.3 g/dL (6.4-8.2); Sodium Level 135 mmol/L (136-145)
--- NOTE | 2019-10-18 06:55 | PCM.PN.PUL ---
Patient Problems: Active and Suspected Problems (Last Reviewed 10/16/19 @ 00:28 by Gladys Arreguin DO) PNA (pneumonia) (Acute) Hyponatremia (Acute) Abnormal LFTs (Acute) Normochromic normocytic anemia (Acute) Pleurisy (Acute) MSSA bacteremia (Acute) Subjective: The patient was seen and examined at the bedside this morning. Events from the last 24 hours have been reviewed. The patient is currently afebrile, hemodynamically stable and maintaining appropriate oxygen saturations on room air. The patient does report some mild chest discomfort and perceived chest tightness when assuming a supine position. She denies the presence of a cough, however. Objective: The patient's most recent lab work, culture data and imaging studies have all been personally reviewed. Surface echocardiogram revealed normal LV size and function with an ejection fraction of 65%. No valvular abnormalities were noted. Blood cultures dated October 15 were positive for MSSA. - Physical Exam Vitals/I&O's: Vital Signs Temp Pulse Resp BP Pulse Ox 97.6 F L 79 18 99/67 97 10/18/19 03:14 10/18/19 03:14 10/18/19 03:14 10/18/19 03:14 10/18/19 03:14 Oxygen Flow Rate (L/min) 2 Oxygen Delivery Method Room Air Weight: 215 lb 4.8 oz Body Mass Index (BMI) 36.9 Intake and Output for Last 24 Hours 10/16/19 10/17/19 10/18/19 23:59 23:59 23:59 Intake Total 3488.33 / 3488.33 1250 / 1850 1571.25 / 1571.25 Output Total 800 / 800 400 / 400 Balance 2688.33 / 2688.33 1250 / 1450 1171.25 / 1171.25 General: Alert, Oriented x3, Cooperative, No apparent distress HEENT: Atraumatic, PERRLA, Normocephalic Oral: No Gingival or Mucosal Lesions/ Ulcerations Neck: Supple, No Nodes, Trachea Midline Lungs: No rhonchi, No wheeze, No rales, Diminished, - - Poor patient inspiratory effort Cardiovascular: Regular rate, Regular Rhythm, Normal S1, Normal S2, No murmurs Abdomen: Bowel Sounds Present, Soft, Non Tender Extremities: No clubbing, No cyanosis Skin: No breakdown Musculoskeletal: No Tenderness to Palpation of Joints or Extremities, No Muscle Wasting Lymphatic: No Cervical, Supraclavicular, or Inguinal Adenopathy Neurological: Cranial nerves II-XII grossly intact, Neuro grossly intact Psych/Mental Status: Flat Affect Labs (Last 48 Hours) 10/16/19 10/16/19 10/16/19 09:38 09:38 09:38 WBC 15.0 H RBC 3.56 L Hgb 9.8 L Hct 30.5 L MCV 85.7 MCH 27.5 MCHC 32.1 RDW Std Deviation 46.5 H RDW Coeff of [place] 14.6 Plt Count 319 MPV 9.5 Immature Gran % (Auto) 1.800 H Neut % (Auto) 85.4 H Lymph % (Auto) 6.9 L [place] % (Auto) 4.5 Eos % (Auto) 1.1 Baso % (Auto) 0.3 Absolute Neuts (auto) 12.9 H Absolute Lymphs (auto) 1.04 Nucleated RBC % 0 Sodium 135 L Potassium 4.2 Chloride 103 Carbon Dioxide 28.0 Anion Gap 4 L BUN 6 L Creatinine 0.51 L Estim Creat Clear Calc 145.61 Est GFR (MDRD) Af Amer 190 Est GFR (MDRD) Non-Af 157 BUN/Creatinine Ratio 11.8 Glucose 125 H Calcium 8.3 L Total Bilirubin 0.50 AST 30 ALT 93 H Alkaline Phosphatase 173 H Total Protein 6.9 Albumin 2.0 L Globulin 4.9 H Albumin/Globulin Ratio 0.4 L Urine Opiates Screen Urine Methadone Screen Ur Barbiturates Screen Ur Phencyclidine Scrn Ur Amphetamines Screen U Methamphetamin-MDMA U Benzodiazepines Scrn Urine Cocaine Screen U Cannabinoids Screen Ur Drug Screen Comment Hepatitis A IgM Ab Pending Hepatitis A Ab Total Pending Hep Bs Antigen Pending Hep B Core Total Ab Pending Hep B Core IgM Ab Pending HIV 1&2 Antibody 10/16/19 10/17/19 10/17/19 09:38 04:50 04:50 WBC 12.3 H RBC 3.42 L Hgb 9.4 L Hct 29.3 L MCV 85.7 MCH 27.5 MCHC 32.1 RDW Std Deviation 46.1 H RDW Coeff of [place] 14.8 H Plt Count 304 MPV 9.7 Immature Gran % (Auto) 1.100 H Neut % (Auto) 77.7 H Lymph % (Auto) 11.9 L [place] % (Auto) 7.7 Eos % (Auto) 1.3 Baso % (Auto) 0.3 Absolute Neuts (auto) 9.6 H Absolute Lymphs (auto) 1.47 Nucleated RBC % 0 Sodium 137 Potassium 3.9 Chloride 105 Carbon Dioxide 26.0 Anion Gap 6 BUN 7 Creatinine 0.35 L Estim Creat Clear Calc 212.18 Est GFR (MDRD) Af Amer 292 Est GFR (MDRD) Non-Af 242 BUN/Creatinine Ratio 20.1 H Glucose 71 L Calcium 8.3 L Total Bilirubin AST ALT Alkaline Phosphatase Total Protein Albumin Globulin Albumin/Globulin Ratio Urine Opiates Screen Urine Methadone Screen Ur Barbiturates Screen Ur Phencyclidine Scrn Ur Amphetamines Screen U Methamphetamin-MDMA U Benzodiazepines Scrn Urine Cocaine Screen U Cannabinoids Screen Ur Drug Screen Comment Hepatitis A IgM Ab Hepatitis A Ab Total Hep Bs Antigen Hep B Core Total Ab Hep B Core IgM Ab HIV 1&2 Antibody Non-Reactive 10/17/19 10/18/19 10/18/19 19:00 06:08 06:08 WBC 15.6 H RBC 3.40 L Hgb 9.4 L Hct 28.8 L MCV 84.7 MCH 27.6 MCHC 32.6 RDW Std Deviation 45.2 H RDW Coeff of [place] 14.7 H Plt Count 378 MPV 9.5 Immature Gran % (Auto) 1.500 H Neut % (Auto) 78.8 H Lymph % (Auto) 13.0 L [place] % (Auto) 5.5 Eos % (Auto) 0.9 Baso % (Auto) 0.3 Absolute Neuts (auto) 12.3 H Absolute Lymphs (auto) 2.02 Nucleated RBC % 0 Sodium 135 L Potassium 4.0 Chloride 103 Carbon Dioxide 26.0 Anion Gap 6 BUN 8 Creatinine 0.39 L Estim Creat Clear Calc 190.42 Est GFR (MDRD) Af Amer 254 Est GFR (MDRD) Non-Af 210 BUN/Creatinine Ratio 20.3 H Glucose 75 Calcium 8.2 L Total Bilirubin 0.70 AST 29 ALT 76 H Alkaline Phosphatase 203 H Total Protein 6.3 L Albumin 2.0 L Globulin 4.3 H Albumin/Globulin Ratio 0.5 L Urine Opiates Screen NEGATIVE Urine Methadone Screen NEGATIVE Ur Barbiturates Screen NEGATIVE Ur Phencyclidine Scrn NEGATIVE Ur Amphetamines Screen NEGATIVE U Methamphetamin-MDMA NEGATIVE U Benzodiazepines Scrn NEGATIVE Urine Cocaine Screen NEGATIVE U Cannabinoids Screen NEGATIVE Ur Drug Screen Comment Hepatitis A IgM Ab Hepatitis A Ab Total Hep Bs Antigen Hep B Core Total Ab Hep B Core IgM Ab HIV 1&2 Antibody Microbiology 10/15/19 14:10 Blood Culture (Wb) - Right Hand Blood Culture - Preliminary 10/15/19 14:00 Blood Culture (Wb) - Anticubital Right Blood Culture - Preliminary Staphylococcus aureus 10/15/19 17:20 Mucosa - Nose Respiratory Panel (PCR) - Final Clinical Impression(s) from Imaging Studies Hand X-Ray 10/15/19 11:04 IMPRESSION: Soft tissue swelling. Electronically Signed: Stevie Goel, at 11:30 EST , Service support , Chest X-Ray 10/15/19 11:15 IMPRESSION: Findings suggestive of CHF or bilateral pneumonia. Electronically Signed: Stevie Goel, at 11:30 EST , Service support , Chest CTA 10/15/19 12:30 IMPRESSION: Right pleural effusion with infiltrates in both lungs as described. There is no evidence of pulmonary embolism. Electronically Signed: Stevie Goel, at 13:36 EST , Service support , Current Medications Acetaminophen (Tylenol) 500 - 1,000 mg PO Q6H PRN PRN PRN Reason: Mild pain or fever >99.6F Last Admin: 10/18/19 06:27 Dose: 1,000 mg Documented by: Al Hydroxide/Mg Hydroxide (Mylanta Ii) 30 ml PO Q6H PRN PRN PRN Reason: dyspesia Albuterol Sulfate (Ventolin Aerosols) 2.5 mg INHALATION Q4H.RT [facility] Last Admin: 10/17/19 23:57 Dose: 2.5 mg Documented by: Buprenorphine HCl (Buprenorphine Hcl) 2 mg SL Q2H PRN PRN PRN Reason: tachycardia/diaphoresis, vomit Last Admin: 10/17/19 14:25 Dose: 2 mg Documented by: Clonidine (Catapres) 0.1 mg PO Q2H PRN PRN PRN Reason: Hot/Cold Sweats or Anxiety Last Admin: 10/16/19 18:37 Dose: 0.1 mg Documented by: Ferrous Sulfate (Ferrous Sulfate) 325 mg PO 1200,1700 [facility] Last Admin: 10/17/19 21:30 Dose: 325 mg Documented by: Folic Acid (Folic Acid) 1 mg PO DAILY@0800 [facility] Last Admin: 10/17/19 09:50 Dose: 1 mg Documented by: Guaifenesin (Mucinex) 600 mg PO BID [facility] Last Admin: 10/17/19 21:30 Dose: 600 mg Documented by: Hydroxyzine Pamoate (Vistaril Pamoate Capsule) 25 mg PO Q6H PRN PRN PRN Reason: Mild Anxiety Last Admin: 10/16/19 18:37 Dose: 25 mg Documented by: Piperacillin Sod/Tazobactam (Sod 3.375 gm/ Sodium Chloride) 50 mls @ 12.5 mls/hr IV Q8 [facility] Last Admin: 10/18/19 06:20 Dose: 12.5 mls/hr Documented by: Loperamide HCl (Imodium) 2 - 4 mg PO UD PRN PRN Reason: LOOSE STOOLS Prednisone () 20 mg PO DAILY@0800 [facility] Last Admin: 10/17/19 09:50 Dose: 20 mg Documented by: Multivit/Folic Acid/Iron (Prenatabs Fa) 1 tablet PO DAILY@0800 [facility] Last Admin: 10/17/19 14:13 Dose: 1 tablet Documented by: Gerardo (Senokot) 1 tablet PO QHS PRN PRN Reason: Constipation Sodium Chloride () 10 - 40 ml IV UD PRN PRN Reason: SALINE FLUSH Medical Necessity - Tobacco Use Smoking Status: Never smoker Tobacco Use: Secondhand Assessment/Plan All Active Problems (Last Reviewed 10/16/19 @ 00:28 by Gladys Arreguin DO) PNA (pneumonia) (Acute) Hyponatremia (Acute) Abnormal LFTs (Acute) Normochromic normocytic anemia (Acute) Pleurisy (Acute) MSSA bacteremia (Acute) Chronic cholecystitis with calculus (Resolved) RECOMMENDATIONS: 1. Continue to encourage incentive spirometer use. 2. Continue prednisone daily. A 5-day burst is likely adequate. 3. Continue antibiotics per infectious diseases recommendations. IMPRESSIONS: 1. Acute hypoxic respiratory insufficiency secondary to pneumonia/pleurisy Patient with bilateral infiltrates and dependent areas of the lung. Given IV drug use and gram-positive's in the blood, this may be secondary to endocarditis. Transthoracic echocardiogram does not show any significant vegetations, but if patient does not clear her blood cultures, DINA may be indicated. Respiratory status appears to be relatively stable at this time. Did instruct the patient the need for incentive spirometer compliance. Continue prednisone as ordered. Antibiotics can likely be de-escalated, per infectious diseases recommendations. 2. Obesity/IV drug use/polysubstance abuse/poor primary care Complicates care, management, recovery and prognosis. Defer to hospitalist on medical stabilization for narcotic abuse. Patient denies any alcohol abuse. This note was generated with [employer] dictation software. It may contain incorrect words, spelling, and punctuation that were not noted in checking the note before signing. Code Visit Inpatient E&M: 59739 Subs Hosp L2
--- NOTE | 2019-10-18 07:28 | PCM.PN.OB ---
Patient Problems: Active and Suspected Problems (Last Reviewed 10/16/19 @ 00:28 by Gladys Arreguin DO) PNA (pneumonia) (Acute) Hyponatremia (Acute) Abnormal LFTs (Acute) Normochromic normocytic anemia (Acute) Pleurisy (Acute) Subjective: Pt denies cramping, ctx, vb, lof. +FM. She states she feels her breathing has somewhat improved, less pleuritic chest pain - Physical Exam Vitals/I&O's: Vital Signs Temp Pulse Resp BP Pulse Ox 97.6 F L 79 18 99/67 95 10/18/19 03:14 10/18/19 03:14 10/18/19 03:14 10/18/19 03:14 10/18/19 07:26 Oxygen Flow Rate (L/min) 2 Oxygen Delivery Method Room Air Weight: 215 lb 4.8 oz Body Mass Index (BMI) 36.9 Intake and Output for Last 24 Hours 10/16/19 10/17/19 10/18/19 23:59 23:59 23:59 Intake Total 3488.33 / 3488.33 1250 / 1850 1571.25 / 1571.25 Output Total 800 / 800 400 / 400 Balance 2688.33 / 2688.33 1250 / 1450 1171.25 / 1171.25 General: Alert, No apparent distress HEENT: Atraumatic Lungs: Short of Breath - conversational Abdomen: Soft, Non Tender Neurological: Neuro grossly intact Psych/Mental Status: Appropriate Microbiology Past 72 Hours 10/15/19 14:10 Blood Culture (Wb) - Right Hand Blood Culture - Preliminary 10/15/19 14:00 Blood Culture (Wb) - Anticubital Right Blood Culture - Preliminary Staphylococcus aureus 10/15/19 17:20 Mucosa - Nose Respiratory Panel (PCR) - Final 10/15/19 19:40 Urine, Clean Catch Legionella Antigen - Final 10/15/19 19:40 Urine, Clean Catch Streptococcus pneumoniae Antigen (M - Final 10/15/19 12:35 Mucosa - Nose Influenza Types A,B Direct FA (GINA) - Final Laboratory Results 10/17/19 19:00: Urine Opiates Screen NEGATIVE, Urine Methadone Screen NEGATIVE, Ur Barbiturates Screen NEGATIVE, Ur Phencyclidine Scrn NEGATIVE, Ur Amphetamines Screen NEGATIVE, U Methamphetamin-MDMA NEGATIVE, U Benzodiazepines Scrn NEGATIVE, Urine Cocaine Screen NEGATIVE, U Cannabinoids Screen NEGATIVE, Ur Drug Screen Comment 10/18/19 06:08: WBC 15.6 H, RBC 3.40 L, Hgb 9.4 L, Hct 28.8 L, MCV 84.7, MCH 27.6, MCHC 32.6, RDW Std Deviation 45.2 H, RDW Coeff of [place] 14.7 H, Plt Count 378, MPV 9.5, Immature Gran % (Auto) 1.500 H, Neut % (Auto) 78.8 H, Lymph % (Auto) 13.0 L, [place] % (Auto) 5.5, Eos % (Auto) 0.9, Baso % (Auto) 0.3, Absolute Neuts (auto) 12.3 H, Absolute Lymphs (auto) 2.02, Nucleated RBC % 0 10/18/19 06:08: Sodium 135 L, Potassium 4.0, Chloride 103, Carbon Dioxide 26.0, Anion Gap 6, BUN 8, Creatinine 0.39 L, Estim Creat Clear Calc 190.42, Est GFR (MDRD) Af Amer 254, Est GFR (MDRD) Non-Af 210, BUN/Creatinine Ratio 20.3 H, Glucose 75, Calcium 8.2 L, Total Bilirubin 0.70, AST 29, ALT 76 H, Alkaline Phosphatase 203 H, Total Protein 6.3 L, Albumin 2.0 L, Globulin 4.3 H, Albumin/Globulin Ratio 0.5 L Current Medications Acetaminophen (Tylenol) 500 - 1,000 mg PO Q6H PRN PRN PRN Reason: Mild pain or fever >99.6F Last Admin: 10/18/19 06:27 Dose: 1,000 mg Documented by: Al Hydroxide/Mg Hydroxide (Mylanta Ii) 30 ml PO Q6H PRN PRN PRN Reason: dyspesia Albuterol Sulfate (Ventolin Aerosols) 2.5 mg INHALATION Q4H.RT [facility] Last Admin: 10/18/19 07:26 Dose: Not Given Documented by: Buprenorphine HCl (Buprenorphine Hcl) 2 mg SL Q2H PRN PRN PRN Reason: tachycardia/diaphoresis, vomit Last Admin: 10/17/19 14:25 Dose: 2 mg Documented by: Clonidine (Catapres) 0.1 mg PO Q2H PRN PRN PRN Reason: Hot/Cold Sweats or Anxiety Last Admin: 10/16/19 18:37 Dose: 0.1 mg Documented by: Ferrous Sulfate (Ferrous Sulfate) 325 mg PO 1200,1700 [facility] Last Admin: 10/17/19 21:30 Dose: 325 mg Documented by: Folic Acid (Folic Acid) 1 mg PO DAILY@0800 [facility] Last Admin: 10/17/19 09:50 Dose: 1 mg Documented by: Guaifenesin (Mucinex) 600 mg PO BID [facility] Last Admin: 10/17/19 21:30 Dose: 600 mg Documented by: Hydroxyzine Pamoate (Vistaril Pamoate Capsule) 25 mg PO Q6H PRN PRN PRN Reason: Mild Anxiety Last Admin: 10/16/19 18:37 Dose: 25 mg Documented by: Piperacillin Sod/Tazobactam (Sod 3.375 gm/ Sodium Chloride) 50 mls @ 12.5 mls/hr IV Q8 [facility] Last Admin: 10/18/19 06:20 Dose: 12.5 mls/hr Documented by: Loperamide HCl (Imodium) 2 - 4 mg PO UD PRN PRN Reason: LOOSE STOOLS Prednisone () 20 mg PO DAILY@0800 [facility] Last Admin: 10/17/19 09:50 Dose: 20 mg Documented by: Multivit/Folic Acid/Iron (Prenatabs Fa) 1 tablet PO DAILY@0800 [facility] Last Admin: 10/17/19 14:13 Dose: 1 tablet Documented by: Gerardo (Senokot) 1 tablet PO QHS PRN PRN Reason: Constipation Sodium Chloride () 10 - 40 ml IV UD PRN PRN Reason: SALINE FLUSH Medical Necessity - Tobacco Use Smoking Status: Never smoker Tobacco Use: Secondhand Assessment/Plan All Active Problems (Last Reviewed 10/16/19 @ 00:28 by Gladys Arreguin DO) PNA (pneumonia) (Acute) Hyponatremia (Acute) Abnormal LFTs (Acute) Normochromic normocytic anemia (Acute) Pleurisy (Acute) Chronic cholecystitis with calculus (Resolved) - Appreciate assistance from medicine and pulmonology - Continue dop tones of fetus - No related complaints this morning - Pt declines [facility] services. She says she would be open to inpatient treatment for h/o IV drug use in [place]. Will discuss with Dr. Escamilla - Please call with any questions: [phone]
--- NOTE | 2019-10-18 08:17 | PCM.PN.HOSP ---
Patient Problems: Active and Suspected Problems (Last Reviewed 10/16/19 @ 00:28 by Gladys Arreguin DO) PNA (pneumonia) (Acute) Hyponatremia (Acute) Abnormal LFTs (Acute) Normochromic normocytic anemia (Acute) Pleurisy (Acute) Reason for Visit: Follow-up pneumonia Subjective: Patient is a 24-year-old lady who is 23 weeks admitted with shortness of breath imaging studies demonstrated bilateral pneumonia. Objective: GENERAL: cooperative HEENT: Atraumatic; EYES; Anicteric, Normal Conjunctiva NECK; supple, normal thyroid, RESPIRATORY: Diminished to auscultation CARDIOVASCULAR: Regular S1 S2, GI: soft, normoactive bowel sounds, : No Renal angle tenderness; EXTREMITIES: No edema, no clubbing, MUSCULOSKELETAL: no muscle waisting NEURO: Awake; no lateralizing signs. SKIN: No Rash PSYCH; Flat affect Vitals/I&O's: Vital Signs Temp Pulse Resp BP Pulse Ox 97.6 F L 79 18 99/67 95 10/18/19 03:14 10/18/19 03:14 10/18/19 03:14 10/18/19 03:14 10/18/19 07:26 Oxygen Flow Rate (L/min) 2 Oxygen Delivery Method Room Air Weight: 97.658 kg Body Mass Index (BMI) 36.9 Intake and Output for Last 24 Hours 10/16/19 10/17/19 10/18/19 23:59 23:59 23:59 Intake Total 3488.33 / 3488.33 1250 / 1850 1571.25 / 1571.25 Output Total 800 / 800 400 / 400 Balance 2688.33 / 2688.33 1250 / 1450 1171.25 / 1171.25 Microbiology Past 72 Hours 10/15/19 14:10 Blood Culture (Wb) - Right Hand Blood Culture - Preliminary 10/15/19 14:00 Blood Culture (Wb) - Anticubital Right Blood Culture - Preliminary Staphylococcus aureus 10/15/19 17:20 Mucosa - Nose Respiratory Panel (PCR) - Final 10/15/19 19:40 Urine, Clean Catch Legionella Antigen - Final 10/15/19 19:40 Urine, Clean Catch Streptococcus pneumoniae Antigen (M - Final 10/15/19 12:35 Mucosa - Nose Influenza Types A,B Direct FA (GINA) - Final Laboratory Results 10/17/19 19:00: Urine Opiates Screen NEGATIVE, Urine Methadone Screen NEGATIVE, Ur Barbiturates Screen NEGATIVE, Ur Phencyclidine Scrn NEGATIVE, Ur Amphetamines Screen NEGATIVE, U Methamphetamin-MDMA NEGATIVE, U Benzodiazepines Scrn NEGATIVE, Urine Cocaine Screen NEGATIVE, U Cannabinoids Screen NEGATIVE, Ur Drug Screen Comment 10/18/19 06:08: WBC 15.6 H, RBC 3.40 L, Hgb 9.4 L, Hct 28.8 L, MCV 84.7, MCH 27.6, MCHC 32.6, RDW Std Deviation 45.2 H, RDW Coeff of Colby 14.7 H, Plt Count 378, MPV 9.5, Immature Gran % (Auto) 1.500 H, Neut % (Auto) 78.8 H, Lymph % (Auto) 13.0 L, [place] % (Auto) 5.5, Eos % (Auto) 0.9, Baso % (Auto) 0.3, Absolute Neuts (auto) 12.3 H, Absolute Lymphs (auto) 2.02, Nucleated RBC % 0 10/18/19 06:08: Sodium 135 L, Potassium 4.0, Chloride 103, Carbon Dioxide 26.0, Anion Gap 6, BUN 8, Creatinine 0.39 L, Estim Creat Clear Calc 190.42, Est GFR (MDRD) Af Amer 254, Est GFR (MDRD) Non-Af 210, BUN/Creatinine Ratio 20.3 H, Glucose 75, Calcium 8.2 L, Total Bilirubin 0.70, AST 29, ALT 76 H, Alkaline Phosphatase 203 H, Total Protein 6.3 L, Albumin 2.0 L, Globulin 4.3 H, Albumin/Globulin Ratio 0.5 L Current Medications Acetaminophen (Tylenol) 500 - 1,000 mg PO Q6H PRN PRN PRN Reason: Mild pain or fever >99.6F Last Admin: 10/18/19 06:27 Dose: 1,000 mg Documented by: Al Hydroxide/Mg Hydroxide (Mylanta Ii) 30 ml PO Q6H PRN PRN PRN Reason: dyspesia Albuterol Sulfate (Ventolin Aerosols) 2.5 mg INHALATION Q4H.RT [place]MEN[place]A Last Admin: 10/18/19 07:26 Dose: Not Given Documented by: Buprenorphine HCl (Buprenorphine Hcl) 2 mg SL Q2H PRN PRN PRN Reason: tachycardia/diaphoresis, vomit Last Admin: 10/17/19 14:25 Dose: 2 mg Documented by: Clonidine (Catapres) 0.1 mg PO Q2H PRN PRN PRN Reason: Hot/Cold Sweats or Anxiety Last Admin: 10/16/19 18:37 Dose: 0.1 mg Documented by: Ferrous Sulfate (Ferrous Sulfate) 325 mg PO 1200,1700 [facility] Last Admin: 10/17/19 21:30 Dose: 325 mg Documented by: Folic Acid (Folic Acid) 1 mg PO DAILY@0800 [facility] Last Admin: 10/17/19 09:50 Dose: 1 mg Documented by: Guaifenesin (Mucinex) 600 mg PO BID [facility] Last Admin: 10/17/19 21:30 Dose: 600 mg Documented by: Hydroxyzine Pamoate (Vistaril Pamoate Capsule) 25 mg PO Q6H PRN PRN PRN Reason: Mild Anxiety Last Admin: 10/16/19 18:37 Dose: 25 mg Documented by: Piperacillin Sod/Tazobactam (Sod 3.375 gm/ Sodium Chloride) 50 mls @ 12.5 mls/hr IV Q8 [facility] Last Admin: 10/18/19 06:20 Dose: 12.5 mls/hr Documented by: Loperamide HCl (Imodium) 2 - 4 mg PO UD PRN PRN Reason: LOOSE STOOLS Prednisone () 20 mg PO DAILY@0800 [facility] Last Admin: 10/17/19 09:50 Dose: 20 mg Documented by: Multivit/Folic Acid/Iron (Prenatabs Fa) 1 tablet PO DAILY@0800 [facility] Last Admin: 10/17/19 14:13 Dose: 1 tablet Documented by: Senmarcelina (Senokot) 1 tablet PO QHS PRN PRN Reason: Constipation Sodium Chloride () 10 - 40 ml IV UD PRN PRN Reason: SALINE FLUSH STROKE Vital Signs/Narrative: Vital Signs Pulse Ox 10/18/19 07:26 95 Medical Necessity - Tobacco Use Smoking Status: Never smoker Tobacco Use: Secondhand Assessment/Plan All Active Problems (Last Reviewed 10/16/19 @ 00:28 by Gladys Arreguin DO) PNA (pneumonia) (Acute) Hyponatremia (Acute) Abnormal LFTs (Acute) Normochromic normocytic anemia (Acute) Pleurisy (Acute) Chronic cholecystitis with calculus (Resolved) Patient is a 24-year-old lady who is 23 weeks admitted with shortness of breath imaging studies demonstrated bilateral pneumonia. 1. Sepsis secondary to bilateral pneumonia ?Managed with Zosyn 2. Acute respiratory insufficiency ~Due to patient bilateral pneumonia patient managed with supplemental oxygen titrated to keep saturation greater than 90 3. MSSA bacteremia ~With patient history of IV drug use echo ordered pending 4. Polysubstance abuse including opioid and methamphetamine ?Patient was placed on Suboxone plan is for patient to follow-up as outpatient with Dr. Escamilla 5. 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 DVT prophylaxis ~did encourage early ambulation Active Medications Acetaminophen (Tylenol) 500 - 1,000 mg PO Q6H PRN PRN PRN Reason: Mild pain or fever >99.6F Last Admin: 10/18/19 06:27 Dose: 1,000 mg Documented by: Al Hydroxide/Mg Hydroxide (Mylanta Ii) 30 ml PO Q6H PRN PRN PRN Reason: dyspesia Albuterol Sulfate (Ventolin Aerosols) 2.5 mg INHALATION Q4H.RT [facility] Last Admin: 10/18/19 07:26 Dose: Not Given Documented by: Buprenorphine HCl (Buprenorphine Hcl) 2 mg SL Q2H PRN PRN PRN Reason: tachycardia/diaphoresis, vomit Last Admin: 10/17/19 14:25 Dose: 2 mg Documented by: Clonidine (Catapres) 0.1 mg PO Q2H PRN PRN PRN Reason: Hot/Cold Sweats or Anxiety Last Admin: 10/16/19 18:37 Dose: 0.1 mg Documented by: Ferrous Sulfate (Ferrous Sulfate) 325 mg PO 1200,1700 [facility] Last Admin: 10/17/19 21:30 Dose: 325 mg Documented by: Folic Acid (Folic Acid) 1 mg PO DAILY@0800 [facility] Last Admin: 10/17/19 09:50 Dose: 1 mg Documented by: Guaifenesin (Mucinex) 600 mg PO BID [facility] Last Admin: 10/17/19 21:30 Dose: 600 mg Documented by: Hydroxyzine Pamoate (Vistaril Pamoate Capsule) 25 mg PO Q6H PRN PRN PRN Reason: Mild Anxiety Last Admin: 10/16/19 18:37 Dose: 25 mg Documented by: Piperacillin Sod/Tazobactam (Sod 3.375 gm/ Sodium Chloride) 50 mls @ 12.5 mls/hr IV Q8 [facility] Last Admin: 10/18/19 06:20 Dose: 12.5 mls/hr Documented by: Loperamide HCl (Imodium) 2 - 4 mg PO UD PRN PRN Reason: LOOSE STOOLS Prednisone () 20 mg PO DAILY@0800 [facility] Last Admin: 10/17/19 09:50 Dose: 20 mg Documented by: Multivit/Folic Acid/Iron (Prenatabs Fa) 1 tablet PO DAILY@0800 [facility] Last Admin: 10/17/19 14:13 Dose: 1 tablet Documented by: Senna (Senokot) 1 tablet PO QHS PRN PRN Reason: Constipation Sodium Chloride () 10 - 40 ml IV UD PRN PRN Reason: SALINE FLUSH Clinical Impression(s) from Imaging Studies Hand X-Ray 10/15/19 11:04 IMPRESSION: Soft tissue swelling. Electronically Signed: Stevie Goel, at 11:30 EST , Service support , Chest X-Ray 10/15/19 11:15 IMPRESSION: Findings suggestive of CHF or bilateral pneumonia. Electronically Signed: Stevie Goel, at 11:30 EST , Service support , Chest CTA 10/15/19 12:30 IMPRESSION: Right pleural effusion with infiltrates in both lungs as described. There is no evidence of pulmonary embolism. Electronically Signed: Stevie Goel, at 13:36 EST , Service support , Code Visit Inpatient E&M: 87202 Subs Hosp L2
--- NOTE | 2019-10-18 09:41 | CASEMGMT ---
Addendum entered by Carla Bermudez 10/18/19 10:29: SAI did receive call from Glenna at [facility]. SAI updated Glenna that Dr. Heller will be calling Dr. Escamilla to discuss treatment options for pt. Glenna states that [facility] doesn't have inpatient treatment as they are a hospital. Original Note: Social Work Note SW reviewed notes, pt would like inpatient treatment at discharge for substance abuse. Per Physician's notes (Dr. Heller) pt declines [facility] services and physician will discuss case with Dr. Escamilla. Plan: Dr. Heller to discuss pt's case with Dr. Escamilla to try and get pt to likely [facility] for inpatient treatment Carla Bermudez MACHINE DESIGN CHECKER, DIGITAL MEDIA MANAGER
[2019-10-18] MEDS: Folic Acid 1 MG Tablet PO (09:45)
[2019-10-18] MEDS: guaiFENesin 600 MG Tablet PO ×2 (09:45→21:44)
[2019-10-18] MEDS: predniSONE 20 MG Tablet PO (09:46)
--- NOTE | 2019-10-18 11:35 | NURSING ---
FHT's 127 with doppler in LLQ.
[2019-10-18] MEDS: Prenatal Vits Tablet 1 TABLET PO (11:48)
[2019-10-18] MEDS: Ferrous Sulfate 325 MG Tablet PO ×2 (11:48→18:21)
--- NOTE | 2019-10-18 12:57 | CHAPLAIN ---
offer of support given; patient was resting and said she would like to sleep now
[2019-10-18] MEDS: Buprenorphine HCl 2 MG TAB.SUBL SL (14:54)
--- NOTE | 2019-10-18 15:12 | MRI_ITS ---
HISTORY: Left hand edema. Intravenous drug use. Swelling to entire ankle greatest at middle finger. Findings diagnostic series. 174 images. Comparison x-rays are from October 15, 2019. Findings: Subcutaneous edema permiates throughout the hand, but is greater on the dorsal surface. The edema extends down to all of the extensor tendons of the second through fifth digits. Those tendons, however, maintain normal signal. There is edema on the palmar side of the hand. The edema there are also extends down to the flexor tendons, but to a lesser degree of severity. Bony alignment is normal. Marrow signal is normal. No abscesses are perceived. No fractures. No focal susceptibility artifact to suggest metallic foreign body. MRI/Upper Ext/No Jt/ wo IMPRESSION: Cellulitis. May be trace myofascitis. No evidence for osteomyelitis. No abscess. at 2132 Reported and signed by: Mani Gauthier MD Electronically Signed: Mani Gauthier MD at 21:31 EST Tel , Service support ,
--- NOTE | 2019-10-18 15:16 | CON.PCM_ITS ---
Problem List (1) MSSA bacteremia Status: Acute Reason for Consult: bacteremia Consulted by: Dr. Arriola History of Present Illness: The patient is a 24 year old F with h/o IVDU, currently , presented with 5 days of cough, SOB, bilateral chest pain worse with deep breath. No sputum, mild fever/chills. Typically injects into L antecub. Denies sharing needles. Has been following with OB for this . Baby's father also with IVDU, recent admit in past few days for hepatitis of unknown cause. Pt also c/o 2 days prior to admit of L hand pain/swelling/redness/decreased ROM. No h/o trauma or injections into that hand. No h/o previously of skin abscess. Came to ED, admitted on zosyn. Feeling better overall, but hand pain and ROM unchanged. Full ROS performed and neg except as noted above. No other back/joint pain. Wants to go to inpatient rehab at d/c. - Medical History Past Medical History (Chronic Problems): Chronic Problems (Last Reviewed 10/16/19 @ 00:28 by Gladys Arreguin DO) Opioid dependence (Chronic) Methamphetamine use (Chronic) Allergies/Adverse Reactions: Allergies No Known Allergies Allergy (Verified 10/15/19 10:33) Home Medications: Ambulatory Orders Medication Instructions Recorded Folic Acid 0.8 mg PO DAILY 10/11/19 Vits [Prenatabs FA ] 1 tab PO DAILY 10/11/19 - Social History Tobacco Use: non-smoker Vital Signs Temp Pulse Resp BP Pulse Ox 97.8 F 80 18 115/74 93 10/18/19 09:15 10/18/19 09:45 10/18/19 09:15 10/18/19 09:15 10/18/19 09:15 Oxygen Flow Rate (L/min) 2 Oxygen Delivery Method Room Air Weight: 97.658 kg Body Mass Index (BMI) 36.9 Microbiology Past 72 Hours 10/15/19 14:00 Blood Culture - Final Blood Culture (Wb) - Anticubital Right Staphylococcus aureus 10/15/19 14:10 Bacteria Detection (PCR) - Final Blood Culture (Wb) - Right Hand Staphylococcus aureus Blood Culture - Final Staphylococcus aureus 10/15/19 17:20 Respiratory Panel (PCR) - Final Mucosa - Nose 10/15/19 19:40 Legionella Antigen - Final Urine, Clean Catch 10/15/19 19:40 Streptococcus pneumoniae Antigen (M - Final Urine, Clean Catch 10/15/19 12:35 Influenza Types A,B Direct FA (GINA) - Final Mucosa - Nose Laboratory Tests Past 24 Hrs 10/17/19 10/18/19 10/18/19 19:00 06:08 06:08 WBC 15.6 H RBC 3.40 L Hgb 9.4 L Hct 28.8 L MCV 84.7 MCH 27.6 MCHC 32.6 RDW Std Deviation 45.2 H RDW Coeff of [place]by 14.7 H Plt Count 378 MPV 9.5 Immature Gran % (Auto) 1.500 H Neut % (Auto) 78.8 H Lymph % (Auto) 13.0 L [place] % (Auto) 5.5 Eos % (Auto) 0.9 Baso % (Auto) 0.3 Absolute Neuts (auto) 12.3 H Absolute Lymphs (auto) 2.02 Nucleated RBC % 0 Sodium 135 L Potassium 4.0 Chloride 103 Carbon Dioxide 26.0 Anion Gap 6 BUN 8 Creatinine 0.39 L Estim Creat Clear Calc 190.42 Est GFR (MDRD) Af Amer 254 Est GFR (MDRD) Non-Af 210 BUN/Creatinine Ratio 20.3 H Glucose 75 Calcium 8.2 L Total Bilirubin 0.70 AST 29 ALT 76 H Alkaline Phosphatase 203 H Total Protein 6.3 L Albumin 2.0 L Globulin 4.3 H Albumin/Globulin Ratio 0.5 L Urine Opiates Screen NEGATIVE Urine Methadone Screen NEGATIVE Ur Barbiturates Screen NEGATIVE Ur Phencyclidine Scrn NEGATIVE Ur Amphetamines Screen NEGATIVE U Methamphetamin-MDMA NEGATIVE U Benzodiazepines Scrn NEGATIVE Urine Cocaine Screen NEGATIVE U Cannabinoids Screen NEGATIVE Ur Drug Screen Comment - Other Studies Radiology: [] reviewed Other Studies: [] Route of nutrition/ use of supplements: [] Nutritional Intake: [] IV Site: [] Limon Catheter: [] - Physical Exam General: Alert, Oriented x3, Cooperative, No apparent distress HEENT: Atraumatic, PERRLA, EOMI Neck: Supple, No JVD Lungs: Rhonchi Cardiovascular: Regular rate, Regular Rhythm, Murmur Abdomen: Soft, Non Tender, Non-Distended, Gravid Extremities: Edema, - - no joint/back pain or swelling Skin: - - mild redness, swelling of L hand with decreased ROM. No janeway/osler/splinter hemorrhages on hands or feet - Assessment/Plan Antibiotics: [] Assessment/Plan: [] Active and Suspected Problems (Last Reviewed 10/16/19 @ 00:28 by Gladys Arreguin DO) PNA (pneumonia) (Acute) Hyponatremia (Acute) Abnormal LFTs (Acute) Normochromic normocytic anemia (Acute) Pleurisy (Acute) sepsis due to MSSA bacteremia from suspected pneumonia with IVDU and current ~22 weeks gestation. Repeat bcx today. Narrow zosyn to cefazolin. With L hand pain/swelling/redness/decreased ROM, will order MRI to eval for abscess/osteo. TTE showed no vegetation. No sign of endocarditis on exam. MSSA bacteremia typically requires several weeks of iv abx, but if bcx clear quickly, no evidence of endocarditis, and no sign of deeper infection in her hand, may be able to do 2 week total of abx and have her leave on linezolid po ( class C). D/w case management specialist, and some of the plan will depend on if rehab facility can manage iv abx. possible hepatitis exposure - her baby's father admitted here with hepatitis a few days ago and then left AMA. Her hep panel is pending. May need prophylaxis depending on his results. Will follow, thank you.
[2019-10-18] MEDS: 0.9% Saline Lock 10 ML Syringe IV (21:44)
[2019-10-18] MEDS: Cefazolin 2 GM in 0.9% Normal Saline 100 ML IV (21:45)
--- NOTE | 2019-10-18 23:10 | NURSING ---
Heart tones 136 via doppler to rt lower quad, abd soft, pt denies any contractions.
[2019-10-19 02:50] VITALS: BP 111/74; PULSE 75; RESP 20; TEMP 36.5; O2SAT 94
[2019-10-19 05:06] LABS: HEPATITIS B SURFACE AG Negative (Negative); Hepatitis A AB, Total Positive (Negative); Hepatitis A IgM Antibody Negative (Negative); Hepatitis B Core AB IgM Negative (Negative); Hepatitis B Core Ab Total Negative (Negative)
[2019-10-19] MEDS: Cefazolin 2 GM in 0.9% Normal Saline 100 ML IV ×2 (05:44→14:51)
[2019-10-19] MEDS: 0.9% Saline Lock 10 ML Syringe IV (05:44)
--- NOTE | 2019-10-19 06:55 | PN_ITS ---
Subjective: The patient was seen and examined at the bedside this morning. Events from the last 24 hours have been reviewed. The patient is currently afebrile, hemodynamically stable and maintaining appropriate oxygen saturations on room air. Objective: The patient's most recent lab work, culture data and imaging studies have all been personally reviewed. Blood cultures dated October 15 were positive for MSSA. Follow-up blood cultures dated October 17 and have been unrevealing to date. MRI of the upper extremity revealed evidence of cellulitis with possible trace mild fasciitis and no evidence for osteomyelitis. Surface echocardiogram revealed normal LV size and function with an ejection fraction of 65%. No valvular abnormalities were noted. - Physical Exam Vitals/I&O's: Vital Signs Temp Pulse Resp BP Pulse Ox 97.7 F L 75 20 H 111/74 94 10/19/19 02:50 10/19/19 02:50 10/19/19 02:50 10/19/19 02:50 10/19/19 02:50 Oxygen Flow Rate (L/min) 2 Oxygen Delivery Method Room Air Weight: 215 lb 4.784 oz Body Mass Index (BMI) 36.9 Intake and Output for Last 24 Hours 10/17/19 10/18/19 10/19/19 23:59 23:59 23:59 Intake Total 1250 / 1850 2713.00 / 3213.00 910 / 910 Output Total 400 / 400 Balance 1250 / 1450 2313.00 / 2813.00 910 / 910 General: Alert, Cooperative, No apparent distress HEENT: Atraumatic, PERRLA, Normocephalic Oral: No Gingival or Mucosal Lesions/ Ulcerations Neck: Supple, No Nodes, Trachea Midline Lungs: No rhonchi, No wheeze, No rales, Diminished Cardiovascular: Regular rate, Regular Rhythm, Normal S1, Normal S2, No murmurs Abdomen: Bowel Sounds Present, Soft, Non Tender Extremities: No clubbing, No cyanosis Skin: No breakdown Musculoskeletal: No Muscle Wasting Lymphatic: No Cervical, Supraclavicular, or Inguinal Adenopathy Neurological: Neuro grossly intact Psych/Mental Status: Flat Affect Labs (Last 48 Hours) 10/17/19 10/17/19 10/18/19 04:50 19:00 06:08 WBC 15.6 H RBC 3.40 L Hgb 9.4 L Hct 28.8 L MCV 84.7 MCH 27.6 MCHC 32.6 RDW Std Deviation 45.2 H RDW Coeff of Colby 14.7 H Plt Count 378 MPV 9.5 Immature Gran % (Auto) 1.500 H Neut % (Auto) 78.8 H Lymph % (Auto) 13.0 L Marin % (Auto) 5.5 Eos % (Auto) 0.9 Baso % (Auto) 0.3 Absolute Neuts (auto) 12.3 H Absolute Lymphs (auto) 2.02 Nucleated RBC % 0 Sodium 137 Potassium 3.9 Chloride 105 Carbon Dioxide 26.0 Anion Gap 6 BUN 7 Creatinine 0.35 L Estim Creat Clear Calc 212.18 Est GFR (MDRD) Af Amer 292 Est GFR (MDRD) Non-Af 242 BUN/Creatinine Ratio 20.1 H Glucose 71 L Calcium 8.3 L Total Bilirubin AST ALT Alkaline Phosphatase Total Protein Albumin Globulin Albumin/Globulin Ratio Urine Opiates Screen NEGATIVE Urine Methadone Screen NEGATIVE Ur Barbiturates Screen NEGATIVE Ur Phencyclidine Scrn NEGATIVE Ur Amphetamines Screen NEGATIVE U Methamphetamin-MDMA NEGATIVE U Benzodiazepines Scrn NEGATIVE Urine Cocaine Screen NEGATIVE U Cannabinoids Screen NEGATIVE Ur Drug Screen Comment 10/18/19 06:08 WBC RBC Hgb Hct MCV MCH MCHC RDW Std Deviation RDW Coeff of Colby Plt Count MPV Immature Gran % (Auto) Neut % (Auto) Lymph % (Auto) Marin % (Auto) Eos % (Auto) Baso % (Auto) Absolute Neuts (auto) Absolute Lymphs (auto) Nucleated RBC % Sodium 135 L Potassium 4.0 Chloride 103 Carbon Dioxide 26.0 Anion Gap 6 BUN 8 Creatinine 0.39 L Estim Creat Clear Calc 190.42 Est GFR (MDRD) Af Amer 254 Est GFR (MDRD) Non-Af 210 BUN/Creatinine Ratio 20.3 H Glucose 75 Calcium 8.2 L Total Bilirubin 0.70 AST 29 ALT 76 H Alkaline Phosphatase 203 H Total Protein 6.3 L Albumin 2.0 L Globulin 4.3 H Albumin/Globulin Ratio 0.5 L Urine Opiates Screen Urine Methadone Screen Ur Barbiturates Screen Ur Phencyclidine Scrn Ur Amphetamines Screen U Methamphetamin-MDMA U Benzodiazepines Scrn Urine Cocaine Screen U Cannabinoids Screen Ur Drug Screen Comment Microbiology 10/15/19 14:00 Blood Culture (Wb) - Anticubital Right Blood Culture - Final Staphylococcus aureus 10/15/19 14:10 Blood Culture (Wb) - Right Hand Bacteria Detection (PCR) - Final Staphylococcus aureus 10/15/19 14:10 Blood Culture (Wb) - Right Hand Blood Culture - Final Staphylococcus aureus Clinical Impression(s) from Imaging Studies Hand X-Ray 10/15/19 11:04 IMPRESSION: Soft tissue swelling. Electronically Signed: Stevie Manasa, at 11:30 EST , Service support , Chest X-Ray 10/15/19 11:15 IMPRESSION: Findings suggestive of CHF or bilateral pneumonia. Electronically Signed: Stevie Manasa, at 11:30 EST , Service support , Chest CTA 10/15/19 12:30 IMPRESSION: Right pleural effusion with infiltrates in both lungs as described. There is no evidence of pulmonary embolism. Electronically Signed: Stevie Manasa, at 13:36 EST , Service support , Upper Extremity MRI 10/18/19 15:12 IMPRESSION: Cellulitis. May be trace myofascitis. No evidence for osteomyelitis. No abscess. at 2132 Reported and signed by: Mani Gauthier MD Electronically Signed: Mani Gauthier MD at 21:31 EST Tel , Service support , Current Medications Acetaminophen (Tylenol) 500 - 1,000 mg PO Q6H PRN PRN PRN Reason: Mild pain or fever >99.6F Last Admin: 10/18/19 21:43 Dose: 1,000 mg Documented by: Al Hydroxide/Mg Hydroxide (Mylanta Ii) 30 ml PO Q6H PRN PRN PRN Reason: dyspesia Albuterol Sulfate (Ventolin Aerosols) 2.5 mg INHALATION Q4H.RT [facility] Last Admin: 10/19/19 03:00 Dose: Not Given Documented by: Clonidine (Catapres) 0.1 mg PO Q2H PRN PRN PRN Reason: Hot/Cold Sweats or Anxiety Last Admin: 10/16/19 18:37 Dose: 0.1 mg Documented by: Ferrous Sulfate (Ferrous Sulfate) 325 mg PO 1200,1700 [facility] Last Admin: 10/18/19 18:21 Dose: 325 mg Documented by: Folic Acid (Folic Acid) 1 mg PO DAILY@0800 [facility] Last Admin: 10/18/19 09:45 Dose: 1 mg Documented by: Guaifenesin (Mucinex) 600 mg PO BID [facility] Last Admin: 10/18/19 21:44 Dose: 600 mg Documented by: Hydroxyzine Pamoate (Vistaril Pamoate Capsule) 25 mg PO Q6H PRN PRN PRN Reason: Mild Anxiety Last Admin: 10/16/19 18:37 Dose: 25 mg Documented by: Sodium Chloride () 250 mls @ 15 mls/hr IV .[id number] PRN PRN Reason: Saline Flush Last Infusion: 10/19/19 06:28 Dose: 15 mls/hr Documented by: Cefazolin Sodium 2 gm/ Sodium (Chloride) 110 mls @ 150 mls/hr IV Q8 [facility] Last Infusion: 10/19/19 06:28 Dose: Infused Documented by: Loperamide HCl (Imodium) 2 - 4 mg PO UD PRN PRN Reason: LOOSE STOOLS Prednisone () 20 mg PO DAILY@0800 [facility] Last Admin: 10/18/19 09:46 Dose: 20 mg Documented by: Multivit/Folic Acid/Iron (Prenatabs Fa) 1 tablet PO DAILY@0800 [facility] Last Admin: 10/18/19 11:48 Dose: 1 tablet Documented by: Senmarcelina (Senokot) 1 tablet PO QHS PRN PRN Reason: Constipation Sodium Chloride () 10 - 40 ml IV UD PRN PRN Reason: SALINE FLUSH Last Admin: 10/19/19 05:44 Dose: 20 ml Documented by: Medical Necessity - Tobacco Use Smoking Status: Never smoker Tobacco Use: Secondhand Assessment/Plan All Active Problems (Last Reviewed 10/16/19 @ 00:28 by Gladys Arreguin DO) PNA (pneumonia) (Acute) Hyponatremia (Acute) Abnormal LFTs (Acute) Normochromic normocytic anemia (Acute) Pleurisy (Acute) MSSA bacteremia (Acute) Chronic cholecystitis with calculus (Resolved) RECOMMENDATIONS: 1. Continue to encourage incentive spirometer use. 2. Continue prednisone daily. A 5-day burst is likely adequate. 3. Continue antibiotics per infectious diseases recommendations. 4. Given the lack of active pulmonary issues, will sign off. Please call with any additional questions. IMPRESSIONS: 1. Acute hypoxic respiratory insufficiency secondary to pneumonia/pleurisy Patient with bilateral infiltrates and dependent areas of the lung. Given IV drug use and gram-positive's in the blood, this may be secondary to endocarditis. Transthoracic echocardiogram does not show any significant veg etations, but if patient does not clear her blood cultures, DINA may be indicated. Respiratory status appears to be relatively stable at this time. Did instruct the patient the need for incentive spirometer compliance. Continue prednisone as ordered. Antibiotics can likely be de-escalated, per infectious diseases recommendations. 2. Obesity/IV drug use/polysubstance abuse/poor primary care Complicates care, management, recovery and prognosis. Defer to hospitalist on medical stabilization for narcotic abuse. Patient denies any alcohol abuse. This note was generated with [employer] dictation software. It may contain incorrect words, spelling, and punctuation that were not noted in checking the note before signing. Code Visit Inpatient E&M: 47337 Subs Hosp L2
--- NOTE | 2019-10-19 07:36 | PN_ITS ---
Patient Problems: Active and Suspected Problems (Last Reviewed 10/16/19 @ 00:28 by Gladys Arreguin DO) PNA (pneumonia) (Acute) Hyponatremia (Acute) Abnormal LFTs (Acute) Normochromic normocytic anemia (Acute) Pleurisy (Acute) MSSA bacteremia (Acute) Reason for Visit: Sepsis secondary to bilateral pneumonia MSSA bacteremia Subjective: Patient seen had a relatively uneventful night Objective: GENERAL: cooperative HEENT: Atraumatic; EYES; Anicteric, Normal Conjunctiva NECK; supple, normal thyroid, RESPIRATORY: Diminished to auscultation CARDIOVASCULAR: Regular S1 S2, GI: soft, normoactive bowel sounds, : No Renal angle tenderness; EXTREMITIES: No edema, no clubbing, MUSCULOSKELETAL: Swelling of the left middle finger NEURO: Awake; no lateralizing signs. SKIN: No Rash PSYCH; Flat affect Vitals/I&O's: Vital Signs Temp Pulse Resp BP Pulse Ox 97.7 F L 75 20 H 111/74 94 10/19/19 02:50 10/19/19 02:50 10/19/19 02:50 10/19/19 02:50 10/19/19 02:50 Oxygen Flow Rate (L/min) 2 Oxygen Delivery Method Room Air Weight: 97.658 kg Body Mass Index (BMI) 36.9 Intake and Output for Last 24 Hours 10/17/19 10/18/19 10/19/19 23:59 23:59 23:59 Intake Total 1250 / 1850 2713.00 / 3213.00 910 / 910 Output Total 400 / 400 Balance 1250 / 1450 2313.00 / 2813.00 910 / 910 Microbiology Past 72 Hours 10/15/19 14:00 Blood Culture (Wb) - Anticubital Right Blood Culture - Final Staphylococcus aureus 10/15/19 14:10 Blood Culture (Wb) - Right Hand Bacteria Detection (PCR) - Final Staphylococcus aureus 10/15/19 14:10 Blood Culture (Wb) - Right Hand Blood Culture - Final Staphylococcus aureus 10/15/19 17:20 Mucosa - Nose Respiratory Panel (PCR) - Final Current Medications Acetaminophen (Tylenol) 500 - 1,000 mg PO Q6H PRN PRN PRN Reason: Mild pain or fever >99.6F Last Admin: 10/18/19 21:43 Dose: 1,000 mg Documented by: Al Hydroxide/Mg Hydroxide (Mylanta Ii) 30 ml PO Q6H PRN PRN PRN Reason: dyspesia Albuterol Sulfate (Ventolin Aerosols) 2.5 mg INHALATION Q4H.RT [facility] Last Admin: 10/19/19 03:00 Dose: Not Given Documented by: Clonidine (Catapres) 0.1 mg PO Q2H PRN PRN PRN Reason: Hot/Cold Sweats or Anxiety Last Admin: 10/16/19 18:37 Dose: 0.1 mg Documented by: Ferrous Sulfate (Ferrous Sulfate) 325 mg PO 1200,1700 [facility] Last Admin: 10/18/19 18:21 Dose: 325 mg Documented by: Folic Acid (Folic Acid) 1 mg PO DAILY@0800 [facility] Last Admin: 10/18/19 09:45 Dose: 1 mg Documented by: Guaifenesin (Mucinex) 600 mg PO BID [facility] Last Admin: 10/18/19 21:44 Dose: 600 mg Documented by: Hydroxyzine Pamoate (Vistaril Pamoate Capsule) 25 mg PO Q6H PRN PRN PRN Reason: Mild Anxiety Last Admin: 10/16/19 18:37 Dose: 25 mg Documented by: Sodium Chloride () 250 mls @ 15 mls/hr IV .[id number] PRN PRN Reason: Saline Flush Last Infusion: 10/19/19 06:28 Dose: 15 mls/hr Documented by: Cefazolin Sodium 2 gm/ Sodium (Chloride) 110 mls @ 150 mls/hr IV Q8 [facility] Last Infusion: 10/19/19 06:28 Dose: Infused Documented by: Loperamide HCl (Imodium) 2 - 4 mg PO UD PRN PRN Reason: LOOSE STOOLS Prednisone () 20 mg PO DAILY@0800 [facility] Last Admin: 10/18/19 09:46 Dose: 20 mg Documented by: Multivit/Folic Acid/Iron (Prenatabs Fa) 1 tablet PO DAILY@0800 [facility] Last Admin: 10/18/19 11:48 Dose: 1 tablet Documented by: Senna (Senokot) 1 tablet PO QHS PRN PRN Reason: Constipation Sodium Chloride () 10 - 40 ml IV UD PRN PRN Reason: SALINE FLUSH Last Admin: 10/19/19 05:44 Dose: 20 ml Documented by: Medical Necessity - Tobacco Use Smoking Status: Never smoker Tobacco Use: Secondhand Assessment/Plan All Active Problems (Last Reviewed 10/16/19 @ 00:28 by Gladys Arreguin DO) PNA (pneumonia) (Acute) Hyponatremia (Acute) Abnormal LFTs (Acute) Normochromic normocytic anemia (Acute) Pleurisy (Acute) MSSA bacteremia (Acute) Chronic cholecystitis with calculus (Resolved) Patient is a 24-year-old lady who is 23 weeks admitted with shortness o f breath imaging studies demonstrated bilateral pneumonia. 1. Sepsis secondary to bilateral pneumonia ?Managed with Zosyn ?10/19/2019: Antibiotics tested by infectious disease the day prior currently on cefazolin. 2. Acute respiratory insufficiency ~Due to patient bilateral pneumonia patient managed with supplemental oxygen titrated to keep saturation greater than 90 3. MSSA bacteremia ~With patient history of IV drug use echo ordered pending ?10/19/2019; patient was seen in consultation by Dr. Milner with infectious diseases note and recommendations reviewed. Also requested for MRI of the of the left hand which demonstrated evidence of cellulitis involving the left middle finger. 4. Polysubstance abuse including opioid and methamphetamine ?Patient was placed on Suboxone plan is for patient to follow-up as outpatient with Dr. Escamilla 5. 23 weeks gestation ~management deferred to [employer] 6. DVT prophylaxis ~did encourage early ambulation Active Medications Acetaminophen (Tylenol) 500 - 1,000 mg PO Q6H PRN PRN PRN Reason: Mild pain or fever >99.6F Last Admin: 10/19/19 08:08 Dose: 1,000 mg Documented by: Al Hydroxide/Mg Hydroxide (Mylanta Ii) 30 ml PO Q6H PRN PRN PRN Reason: dyspesia Albuterol Sulfate (Ventolin Aerosols) 2.5 mg INHALATION Q4H.RT [facility] Last Admin: 10/19/19 03:00 Dose: Not Given Documented by: Clonidine (Catapres) 0.1 mg PO Q2H PRN PRN PRN Reason: Hot/Cold Sweats or Anxiety Last Admin: 10/16/19 18:37 Dose: 0.1 mg Documented by: Ferrous Sulfate (Ferrous Sulfate) 325 mg PO 1200,1700 [facility] Last Admin: 10/18/19 18:21 Dose: 325 mg Documented by: Folic Acid (Folic Acid) 1 mg PO DAILY@0800 [facility] Last Admin: 10/19/19 08:04 Dose: 1 mg Documented by: Guaifenesin (Mucinex) 600 mg PO BID [facility] Last Admin: 10/18/19 21:44 Dose: 600 mg Documented by: Hydroxyzine Pamoate (Vistaril Pamoate Capsule) 25 mg PO Q6H PRN PRN PRN Reason: Mild Anxiety Last Admin: 10/16/19 18:37 Dose: 25 mg Documented by: Sodium Chloride () 250 mls @ 15 mls/hr IV .[id number] PRN PRN Reason: Saline Flush Last Infusion: 10/19/19 06:28 Dose: 15 mls/hr Documented by: Cefazolin Sodium 2 gm/ Sodium (Chloride) 110 mls @ 150 mls/hr IV Q8 [facility] Last Infusion: 10/19/19 06:28 Dose: Infused Documented by: Loperamide HCl (Imodium) 2 - 4 mg PO UD PRN PRN Reason: LOOSE STOOLS Prednisone () 20 mg PO DAILY@0800 [facility] Last Admin: 10/19/19 08:04 Dose: 20 mg Documented by: Multivit/Folic Acid/Iron (Prenatabs Fa) 1 tablet PO DAILY@0800 [facility] Last Admin: 10/19/19 08:04 Dose: 1 tablet Documented by: Senna (Senokot) 1 tablet PO QHS PRN PRN Reason: Constipation Sodium Chloride () 10 - 40 ml IV UD PRN PRN Reason: SALINE FLUSH Last Admin: 10/19/19 05:44 Dose: 20 ml Documented by: Clinical Impression(s) from Imaging Studies Upper Extremity MRI 10/18/19 15:12 IMPRESSION: Cellulitis. May be trace myofascitis. No evidence for osteomyelitis. No abscess. at 2132 Reported and signed by: Mani Gauthier MD Electronically Signed: Mani Gauthier MD at 21:31 EST Tel , Service support , Code Visit Inpatient E&M: 43967 Subs Hosp L2
[2019-10-19 07:42] VITALS: BP 109/69; PULSE 73; RESP 16; TEMP 36.7; O2SAT 92
[2019-10-19 07:55] VITALS: O2SAT 91
[2019-10-19] MEDS: predniSONE 20 MG Tablet PO (08:04)
[2019-10-19] MEDS: Prenatal Vits Tablet 1 TABLET PO (08:04)
[2019-10-19] MEDS: Folic Acid 1 MG Tablet PO (08:04)
[2019-10-19] MEDS: Acetaminophen 500 MG Tablet PO (08:08)
--- NOTE | 2019-10-19 09:47 | PN.ID_ITS ---
Patient Problems: Active and Suspected Problems (Last Reviewed 10/16/19 @ 00:28 by Gladys Arreguin DO) PNA (pneumonia) (Acute) Hyponatremia (Acute) Abnormal LFTs (Acute) Normochromic normocytic anemia (Acute) Pleurisy (Acute) MSSA bacteremia (Acute) Subjective: Feeling better overall. Breathing improved. Hand still sore and swollen. - Physical Exam Vitals/I&O's: Vital Signs Temp Pulse Resp BP Pulse Ox 98.0 F 73 16 109/69 91 10/19/19 07:42 10/19/19 07:42 10/19/19 07:42 10/19/19 07:42 10/19/19 07:55 Oxygen Flow Rate (L/min) 2 Oxygen Delivery Method Room Air Weight: 97.658 kg Body Mass Index (BMI) 36.9 Intake and Output for Last 24 Hours 10/17/19 10/18/19 10/19/19 23:59 23:59 23:59 Intake Total 1250 / 1850 2713.00 / 3213.00 910 / 910 Output Total 400 / 400 Balance 1250 / 1450 2313.00 / 2813.00 910 / 910 General: Alert, Cooperative, No apparent distress Lungs: Rhonchi - improved Cardiovascular: Regular rate, Regular Rhythm Abdomen: Soft, Non Tender, Non-Distended Skin: - - mild L hand swelling Microbiology Past 72 Hours 10/15/19 14:00 Blood Culture (Wb) - Anticubital Right Blood Culture - Final Staphylococcus aureus 10/15/19 14:10 Blood Culture (Wb) - Right Hand Bacteria Detection (PCR) - Final Staphylococcus aureus 10/15/19 14:10 Blood Culture (Wb) - Right Hand Blood Culture - Final Staphylococcus aureus 10/15/19 17:20 Mucosa - Nose Respiratory Panel (PCR) - Final Current Medications Acetaminophen (Tylenol) 500 - 1,000 mg PO Q6H PRN PRN PRN Reason: Mild pain or fever >99.6F Last Admin: 10/19/19 08:08 Dose: 1,000 mg Documented by: Al Hydroxide/Mg Hydroxide (Mylanta Ii) 30 ml PO Q6H PRN PRN PRN Reason: dyspesia Albuterol Sulfate (Ventolin Aerosols) 2.5 mg INHALATION Q4H.RT [facility] Last Admin: 10/19/19 07:55 Dose: Not Given Documented by: Clonidine (Catapres) 0.1 mg PO Q2H PRN PRN PRN Reason: Hot/Cold Sweats or Anxiety Last Admin: 10/16/19 18:37 Dose: 0.1 mg Documented by: Ferrous Sulfate (Ferrous Sulfate) 325 mg PO 1200,1700 [facility] Last Admin: 10/18/19 18:21 Dose: 325 mg Documented by: Folic Acid (Folic Acid) 1 mg PO DAILY@0800 [facility] Last Admin: 10/19/19 08:04 Dose: 1 mg Documented by: Guaifenesin (Mucinex) 600 mg PO BID [facility] Last Admin: 10/18/19 21:44 Dose: 600 mg Documented by: Hydroxyzine Pamoate (Vistaril Pamoate Capsule) 25 mg PO Q6H PRN PRN PRN Reason: Mild Anxiety Last Admin: 10/16/19 18:37 Dose: 25 mg Documented by: Sodium Chloride () 250 mls @ 15 mls/hr IV .[id number] PRN PRN Reason: Saline Flush Last Infusion: 10/19/19 06:28 Dose: 15 mls/hr Documented by: Cefazolin Sodium 2 gm/ Sodium (Chloride) 110 mls @ 150 mls/hr IV Q8 [facility] Last Infusion: 10/19/19 06:28 Dose: Infused Documented by: Loperamide HCl (Imodium) 2 - 4 mg PO UD PRN PRN Reason: LOOSE STOOLS Prednisone () 20 mg PO DAILY@0800 [facility] Last Admin: 10/19/19 08:04 Dose: 20 mg Documented by: Multivit/Folic Acid/Iron (Prenatabs Fa) 1 tablet PO DAILY@0800 [facility] Last Admin: 10/19/19 08:04 Dose: 1 tablet Documented by: Senna (Senokot) 1 tablet PO QHS PRN PRN Reason: Constipation Sodium Chloride () 10 - 40 ml IV UD PRN PRN Reason: SALINE FLUSH Last Admin: 10/19/19 05:44 Dose: 20 ml Documented by: Medical Necessity - Tobacco Use Smoking Status: Never smoker Tobacco Use: Secondhand Route of nutrition/ use of supplements: [] Nutritional Intake: [] IV Site: [] Limon Catheter: [] - Assessment/Plan Antibiotics: [] Assessment/Plan: [] Active and Suspected Problems (Last Reviewed 10/16/19 @ 00:28 by Gladys Arreguin DO) PNA (pneumonia) (Acute) Hyponatremia (Acute) Abnormal LFTs (Acute) Normochromic normocytic anemia (Acute) Pleurisy (Acute) sepsis due to MSSA bacteremia from suspected pneumonia with IVDU and current ~22 weeks gestation. Repeat bcx neg since 10/17. MRI neg for osteo or abscess. TTE neg for endocarditis. Given rapid clearance and other negative results, plan will be for discharge on po linezolid for 2 weeks total of abx, stop date 10/31. Cont cefazolin while inpatient. Wrote rx. possible hepatitis exposure - her baby's father admitted here with hepatitis a few days ago and then left AMA. Her hep panel is pending. May need prophylaxis depending on his results. Will follow, d/w geriatric case manager
--- NOTE | 2019-10-19 10:05 | CASEMGMT ---
KAREN KUMAR updated that patient will need prior auth for linezolid. KAREN KUMAR called patient's insurance [employer] and spoke to [facility] and completed prior auth over the phone. Prior auth approved ref#[id number]. KAREN KUMAR updated [facility].
--- NOTE | 2019-10-19 10:45 | CASEMGMT ---
Social Work Note SW in to speak with pt. SW asked pt about discharge plans and following up with Dr. Escamilla as outpatient. Pt states she doesn't remember having conversation with anyone regarding outpatient treatment. SW informed pt that this worker can provide pt with counseling/treatment resources. Pt states is agreeable to taking resources. SW asked pt about homelessness. SW informed pt that this worker can provide pt with homeless shelters, metro housing resources etc. Pt states I will figure out someplace to stay. SW to remain available to assist. Carla Bermudez BAG CHECKER, [employer] SUPERVISOR
--- NOTE | 2019-10-19 11:00 | CPS ---
Patient stated she has been working on PEP and IS on own.
--- NOTE | 2019-10-19 11:33 | CASEMGMT ---
Social Work Phone call placed and VM left with Dr. Heller requesting return call to discuss treatment plan for substance abuse. Per physician's note, physician is looking into a treatment program for pt. SW will await return phone call. DEISY Akbar
[2019-10-19] MEDS: Ferrous Sulfate 325 MG Tablet PO ×2 (12:47→16:33)
[2019-10-19] MEDS: guaiFENesin 600 MG Tablet PO (12:47)
--- NOTE | 2019-10-19 13:44 | NURSING ---
DOPPLER FHT AT 144
--- NOTE | 2019-10-19 13:54 | PN.OBGYN_ITS ---
Patient Problems: Active and Suspected Problems (Last Reviewed 10/16/19 @ 00:28 by Gladys Arreguin DO) PNA (pneumonia) (Acute) Hyponatremia (Acute) Abnormal LFTs (Acute) Normochromic normocytic anemia (Acute) Pleurisy (Acute) MSSA bacteremia (Acute) Subjective: Patient denies any vaginal bleeding or leaking of fluid. She is had some more frequent bowel movements. She denies any significant diarrhea. She is had some increased anxiety and palpitations. Some cravings as well. - Physical Exam Vitals/I&O's: Vital Signs Temp Pulse Resp BP Pulse Ox 98.0 F 73 16 109/69 91 10/19/19 07:42 10/19/19 07:42 10/19/19 07:42 10/19/19 07:42 10/19/19 07:55 Oxygen Flow Rate (L/min) 2 Oxygen Delivery Method Room Air Weight: 97.658 kg Body Mass Index (BMI) 36.9 Intake and Output for Last 24 Hours 10/17/19 10/18/19 10/19/19 23:59 23:59 23:59 Intake Total 1250 / 1850 2713.00 / 3213.00 910 / 910 Output Total 400 / 400 Balance 1250 / 1450 2313.00 / 2813.00 910 / 910 General: Alert, Cooperative, No apparent distress Lungs: - - Tachypneic Abdomen: Soft, Non Tender, Non-Distended, Gravid Microbiology Past 72 Hours 10/15/19 14:00 Blood Culture (Wb) - Anticubital Right Blood Culture - Final Staphylococcus aureus 10/15/19 14:10 Blood Culture (Wb) - Right Hand Bacteria Detection (PCR) - Final Staphylococcus aureus 10/15/19 14:10 Blood Culture (Wb) - Right Hand Blood Culture - Final Staphylococcus aureus Current Medications Acetaminophen (Tylenol) 500 - 1,000 mg PO Q6H PRN PRN PRN Reason: Mild pain or fever >99.6F Last Admin: 10/19/19 08:08 Dose: 1,000 mg Documented by: Al Hydroxide/Mg Hydroxide (Mylanta Ii) 30 ml PO Q6H PRN PRN PRN Reason: dyspesia Albuterol Sulfate (Ventolin Aerosols) 2.5 mg INHALATION Q4H.RT CARMENCITA Last Admin: 10/19/19 11:45 Dose: Not Given Documented by: Buprenorphine HCl (Buprenorphine Hcl) 4 mg SL Q12 [facility] Clonidine (Catapres) 0.1 mg PO Q2H PRN PRN PRN Reason: Hot/Cold Sweats or Anxiety Last Admin: 10/16/19 18:37 Dose: 0.1 mg Documented by: Ferrous Sulfate (Ferrous Sulfate) 325 mg PO 1200,1700 [facility] Last Admin: 10/19/19 12:47 Dose: 325 mg Documented by: Folic Acid (Folic Acid) 1 mg PO DAILY@0800 [facility] Last Admin: 10/19/19 08:04 Dose: 1 mg Documented by: Guaifenesin (Mucinex) 600 mg PO BID [facility] Last Admin: 10/19/19 12:47 Dose: 600 mg Documented by: Hydroxyzine Pamoate (Vistaril Pamoate Capsule) 25 mg PO Q6H PRN PRN PRN Reason: Mild Anxiety Last Admin: 10/16/19 18:37 Dose: 25 mg Documented by: Sodium Chloride () 250 mls @ 15 mls/hr IV .[id number] PRN PRN Reason: Saline Flush Last Infusion: 10/19/19 06:28 Dose: 15 mls/hr Documented by: Cefazolin Sodium 2 gm/ Sodium (Chloride) 110 mls @ 150 mls/hr IV Q8 [facility] Last Infusion: 10/19/19 06:28 Dose: Infused Documented by: Loperamide HCl (Imodium) 2 - 4 mg PO UD PRN PRN Reason: LOOSE STOOLS Prednisone () 20 mg PO DAILY@0800 [facility] Last Admin: 10/19/19 08:04 Dose: 20 mg Documented by: Multivit/Folic Acid/Iron (Prenatabs Fa) 1 tablet PO DAILY@0800 [facility] Last Admin: 10/19/19 08:04 Dose: 1 tablet Documented by: Senna (Senokot) 1 tablet PO QHS PRN PRN Reason: Constipation Sodium Chloride () 10 - 40 ml IV UD PRN PRN Reason: SALINE FLUSH Last Admin: 10/19/19 05:44 Dose: 20 ml Documented by: Medical Necessity - Tobacco Use Smoking Status: Never smoker Tobacco Use: Secondhand Assessment/Plan All Active Problems (Last Reviewed 10/16/19 @ 00:28 by Yamilex Sementi, DO) PNA (pneumonia) (Acute) Hyponatremia (Acute) Abnormal LFTs (Acute) Normochromic normocytic anemia (Acute) Pleurisy (Acute) MSSA bacteremia (Acute) Chronic cholecystitis with calculus (Resolved) Hospital #5 status post admission for acute pneumonia. 22 to 23 weeks high risk . History of drug and opioid use disorder. Has been on as needed Subutex, patient should be on scheduled Subutex regimen to prevent acute withdrawal during . I discussed with her this. Ordered Subutex today. Given prescription for outpatient Subutex as well. This will give her a couple of days to establish with an outpatient treatment program. I discussed with her at this point all I would have to offer her inpatient colvin would be a stay at [facility], or [facility] where they would place her on a regimen and establish her with an outpatient program. I discussed the case with the social work case manager today, and she will give the patient some resources. Patient has been considering inpatient therapy, and discussing this with her mother. However, I discussed with them it will be difficult to find placement with her being . In addition, I do not have any direct connections with any of these resources. She would need to check with her insurance and contact programs to see if they have availability if she would like to proceed this way. Otherwise, she should follow-up in our office next week as needed. Okay to discharge home from an OB standpoint. Antibiotic regimen per internal medicine and infectious disease.
--- NOTE | 2019-10-19 14:01 | PCM.DC ---
- Discharge Diagnoses Current Active Problems: Current Active and Chronic Problems (Last Reviewed 10/16/19 @ 00:28 by Gladys Arreguin DO) PNA (pneumonia) (Acute) Hyponatremia (Acute) Opioid dependence (Chronic) Abnormal LFTs (Acute) Methamphetamine use (Chronic) Normochromic normocytic anemia (Acute) Pleurisy (Acute) MSSA bacteremia (Acute) You will use the following diet at home:: No restrictions Your food should be the consistency of: Regular Your liquids should be the consistency of: Regular/Thin Discharge Activity: Return to Normal Activity, May Drive, May Shower, May Take a Tub Bath Return to work on:: 10/22/19 May resume sexual activity in: No Restrictions Call your doctor if you observe: Fever of 101 or Higher Instructions: Pneumonia Additional Instructions: Call if any vaginal bleeding, acute abdominal pain or other concerns Allergies/Adverse Reactions: Allergies No Known Allergies Allergy (Verified 10/15/19 10:33) Medications to take at Discharge Folic Acid 0.8 mg PO DAILY 10/11/19 Vits [Prenatabs FA ] 1 tab PO DAILY 10/11/19 Buprenorphine HCl 4 mg SL BID 3 Days tab.subl 10/19/19 Hydroxyzine HCl 10 mg PO Q6H PRN PRN #30 tab 10/19/19 Linezolid 600 mg PO BID 12 Days #24 tab 10/19/19 The following prescriptions were given: Buprenorphine HCl 4 mg SL BID 3 Days tab.subl Prescription Printed Hydroxyzine HCl 10 mg PO Q6H PRN PRN #30 tab PRN Reason: Anxiety Transmission Status: Received by [facility] Linezolid 600 mg PO BID 12 Days #24 tab Transmission Status: Received by [facility] Primary Care Physician: Julissa Dominguez, AUTO SERVICE STATION ATTENDANT-C [Primary Care Provider] - Please follow up with your Primary Care Physician in: 1-3 days or as directed by their office Test Results: Test results from this visit will be discussed in further detail at your follow-up appointment, if applicable. Please Follow Up With: Penny Sorenson MD - [phone] When: in our office within 7-10 days
--- NOTE | 2019-10-19 14:02 | CASEMGMT ---
Social Work Note SAI spoke with OBGYN, pt is ready for discharge today and pt is able to [facility]. SAI met with pt and provided substance abuse treatment/resources and educated pt on [facility]. SAI also provided pt with homeless shelters and [facility] housing resources. Pt asked for work excuse, SW had physician sign work excuse and provided document to pt and copy on pt's chart. Pt denied additional needs or concerns at this time. Plan: Pt has substance abuse resources and treatment options and is able to [facility] with [facility]. Carla Bermudez DIRECTOR CLINICAL APPLICATIONS, MILKING WORKER
[2019-10-19] MEDS: Buprenorphine HCl 2 MG TAB.SUBL 4 MG SL (14:52)
--- NOTE | 2019-10-19 15:47 | CHAPLAIN ---
offer of support given and patient said thank you but I'm going to sleep now
[2019-10-19 15:59] LABS: Hep B Surface Antibodies Reactive (.)
[2019-10-19 16:01] LABS: Hepatitis C Ab >11.0 s/co ratio (0.0-0.9)
--- NOTE | 2019-10-22 08:52 | DS.PCM_ITS ---
Discharge Date and Diagnosis Date of Admission: 10/15/19 Date of Discharge: 10/19/19 - Secondary Discharge Diagnosis Chronic Problems (Last Reviewed 10/16/19 @ 00:28 by Gladys Arreguin DO) Opioid dependence (Chronic) Methamphetamine use (Chronic) Hospital Course and Treatment Operations: None Procedures: 2-D Echocardiogram, - - MRI of the left upper extremity to rule out osteomyelitis Summary of Care Provided: Patient is a 24-year-old 2 para 1 who was admitted on 10/15/2019 at 22- 5/7 weeks gestation for pneumonia with acute respiratory failure due to the p neumonia. She also had methicillin that if staph aureus sepsis and bacteremia. She also had left arm cellulitis due to history of IV drug use. Patient admitted to using methamphetamines, IV opioids, and marijuana recently. Patient was admitted to our service with a medicine consult. Patient was initially placed on Zosyn. She had respiratory support and IV fluids. She was also placed on Subutex with other medications to help with withdrawal symptoms. However, she was not placed on scheduled Subutex initially by the medicine service and she did begin to have some withdrawal symptoms. During her hospital course, the patient had a 2D echocardiogram to rule out carditis. She also had an MRI of the left upper extremity to rule out osteomyelitis. She did have cellulitis but no evidence of osteomyelitis. Her blood cultures came back positive for methicillin sensitive staph aureus. Her other respiratory panels were negative. She had a hepatitis C cream that was positive. During the hospital course, the patient's respiratory status improved and stabilized. By 10/19/2019 she was ready for discharge per the medical service and her antibiotic regimen was recommended by the infectious disease consult. Patient had also had a pulmonary consult during her stay.. She had no acute obstetrical issues. She was placed on Linezolid for outpatient antibiotics. She was given a prescription by me for Subutex maintenance therapy. We discussed options for substance abuse treatment during . She was initially interested in patient therapy, and I discussed with her she may have some difficulty finding an inpatient program while she is . Social work did give patient some resources. I encouraged the patient to follow-up locally with [facility] and Dr. Bhakta to establish for treatment. To follow-up in our office within 1 week or as needed. Patient was comfortable with plan. [] - Physical Exam Vitals/I&O's: Vital Signs Temp Pulse Resp BP Pulse Ox 98.0 F 73 16 109/69 91 10/19/19 07:42 10/19/19 07:42 10/19/19 07:42 10/19/19 07:42 10/19/19 07:55 Oxygen Flow Rate (L/min) 2 Oxygen Delivery Method Room Air Weight: 97.658 kg Body Mass Index (BMI) 36.9 Microbiology Past 72 Hours 10/18/19 15:51 Blood Culture (Wb) - Anticubital Left Blood Culture - Preliminary No growth in 48 hours. 10/17/19 16:10 Blood Culture (Wb) - Anticubital Right Blood Culture - Preliminary No growth in 48 hours. 10/17/19 15:35 Blood Culture (Wb) - Anticubital Left Blood Culture - Preliminary No growth in 48 hours. Discharge Activity: Return to Normal Activity, May Drive, May Shower, May Take a Tub Bath Return to work on:: 10/22/19 May resume sexual activity in: No Restrictions Call your doctor if you observe: Fever of 101 or Higher Home Medications: Medications to take at Discharge Folic Acid 0.8 mg PO DAILY 10/11/19 Vits [Prenatabs FA ] 1 tab PO DAILY 10/11/19 Hydroxyzine HCl 10 mg PO Q6H PRN PRN #30 tab 10/19/19 Linezolid 600 mg PO BID 12 Days #24 tab 10/19/19 Following Prescrptions Were Given to Patient: Hydroxyzine HCl 10 mg PO Q6H PRN PRN #30 tab PRN Reason: Anxiety Transmission Status: Received by [facility] Linezolid 600 mg PO BID 12 Days #24 tab Transmission Status: Received by [facility] Primary Care Physician: Julissa Dominguez, RETAIL INVENTORY CONTROL CLERK-C [Primary Care Provider] - Please follow up with your Primary Care Physician in: 1-3 days or as directed by their office Please Follow Up With: Penny Sorenson MD - [phone] When: in our office within 7-10 days Patient Instructions: Pneumonia Medical Necessity - Tobacco Use Smoking Status: Never smoker Tobacco Use: Secondhand Meaningful Use Info Meaningful Use Diagnoses (Choose all that apply): None applicable
== END 2019-10-19 18:05 | disposition home or self-care (01) | DRG 566 ==
LOC: ED 11:21 → MS3 10-16 07:35
PROVIDERS: Internal Medicine; Admitting Provider Obstetrics & Gynecology; Emergency Provider Emergency Medicine; Family Provider Nurse Practitioner Family; PCP Nurse Practitioner Family; Referring Provider Obstetrics & Gynecology; Visit Provider Internal Medicine
DX: O98.812 Other maternal infectious and parasitic diseases complicating pregnancy, second trimester (principal); A41.01 Sepsis due to Methicillin susceptible Staphylococcus aureus; J18.9 Pneumonia, unspecified organism; O99.012 Anemia complicating pregnancy, second trimester; D64.9 Anemia, unspecified; Z3A.22 22 weeks gestation of pregnancy; Z77.22 Contact with and (suspected) exposure to environmental tobacco smoke (acute) (chronic); O99.322 Drug use complicating pregnancy, second trimester; F11.20 Opioid dependence, uncomplicated; O99.512 Diseases of the respiratory system complicating pregnancy, second trimester
CPT/HCPCS: 36415; 71045; 71275; 73130; 73218; 80048; 80053; 80307; 83605; 83880; 84484; 85025; 85379; 86703; 86704; 86705; 86706; 86708; 86709; 86803; 87040; 87077; 87149; 87186; 87340; 87449; 87633; 87641; 87804; 93005; 93306; 93970; 94640; 94667; 94668; 94762; 99251; 99285; J7030; J7050; Q9967; A4216; G0463; J2405

== ENCOUNTER → 2019-11-05 08:12 | Outpatient (CLI) | payer MEDICAID, SELFPAY ==
[2019-10-28 10:25] VITALS: BMI 35.2
[2019-11-05 08:49] LABS: Absolute Lymphocyte Count 2.97 X10^3/uL (0.83-4.51); Absolute Neutrophil Count 8.7 X10^3/uL (2.0-7.7); Basophil# 0.09 X10^3/uL; Basophil% 0.7 % (0-1); Eosinophil# 0.38 X10^3/uL; Eosinophils% 2.9 % (0-5); Hematocrit 32.7 % (37-47); Hemoglobin 10.5 g/dL (12.0-15.0); Lymphocyte # 2.97 X10^3/ul (4.0); Lymphocyte % 22.4 % (19-41); Mean Corp Hgb Conc 32.1 g/dL (32-36); Mean Corpuscular Volume 84.1 fL (81-99); Mean Platelet Vol. 9.2 fl (6.2-12.0); Monocyte# 0.84 X10^3/uL; Monocyte% 6.3 % (0-10); NRBC Flagged by Analyzer 0 % (0-5); Neutrophil # 8.74 X10^3/uL (2.7-7.7); Neutrophil % 66.1 % (47-70); Platelet Count 368 K/mm3 (150-450); RBC Distribution Width CV 14.2 % (11.6-14.6); RBC Distribution Width SD 43.3 fl (35.1-43.9); Red Blood Count 3.89 M/mm3 (4.2-5.4); White Blood Count 13.2 K/mm3 (4.4-11.0)
[2019-11-05 09:15] LABS: ALB/GLOB Ratio 0.4 RATIO (0.9-2.4); AST(SGOT) 99 U/L (15-37); Alanine Aminotransfer ALT/SGPT 166 U/L (13-56); Albumin, Serum 2.1 g/dL (3.2-5.0); Alkaline Phosphatase 207 U/L (45-117); Anion Gap 7 (5-15); BUN 10 mg/dL (7-18); BUN/Creat Ratio 24.7 RATIO (10-20); Calcium,Total 8.7 mg/dL (8.5-10.1); Chloride 104 mmol/L (98-107); EST Glomerular Filtration Rate 203 mL/min (>60); Est Glom Filt Rate - Afr Amer 246 mL/min (>60); Globulin 5.5 g/dL (2.2-4.2); Glucose 81 mg/dL (74-106); Potassium 3.8 mmol/L (3.5-5.1); Protein, Total 7.6 g/dL (6.4-8.2); Sodium Level 135 mmol/L (136-145)
[2019-11-05 09:42] LABS: Hepatitis B Surface Antigen Non-Reactive (Nonreactive)
[2019-11-08 09:42] LABS: Comment 1b (.); HCV Quant. RNA PCR 2470000 IU/mL (.); Hepatitis A AB, Total Positive (Negative)
[2019-11-08 14:38] LABS: HCV log 10 6.393 (.); Hepatitis B Core Ab Total Negative (Negative)
[2019-11-08 14:40] LABS: Hepatitis A IgM Antibody Positive (Negative)
[2019-11-08 14:41] LABS: Hepatitis C Genotype 1b
== END ==
PROVIDERS: Family Provider Nurse Practitioner Family; PCP Nurse Practitioner Family; Referring Provider Internal Medicine Infectious Disease; Visit Provider Internal Medicine Infectious Disease
DX: B18.2 Chronic viral hepatitis C (principal)
CPT/HCPCS: 36415; 80053; 85025; 86704; 86708; 86709; 87340; 87522; 87902

== ENCOUNTER 2020-01-04 16:10 | Outpatient (CLI) | payer MEDICAID, SELFPAY ==
[2019-10-28 10:25] VITALS: BMI 35.2
[2020-01-04] VITALS (27 sets, daily range): BP systolic 90–118; BP diastolic 54–60; PULSE 59–81; O2SAT 93–97; BMI 41.1
[2020-01-04] MEDS: Lactated Ringers 500 ML 999 ML IV (17:05)
[2020-01-04 17:13] LABS: Absolute Lymphocyte Count 1.98 X10^3/uL (0.83-4.51); Absolute Neutrophil Count 7.6 X10^3/uL (2.0-7.7); Basophil# 0.04 X10^3/uL; Basophil% 0.4 % (0-1); Eosinophil# 0.51 X10^3/uL; Eosinophils% 4.7 % (0-5); Hematocrit 35.8 % (37-47); Hemoglobin 11.6 g/dL (12.0-15.0); Lymphocyte # 1.98 X10^3/ul (4.0); Lymphocyte % 18.4 % (19-41); Mean Corp Hgb Conc 32.4 g/dL (32-36); Mean Corpuscular Hgb 27.3 pg (27.0-32.0); Mean Corpuscular Volume 84.2 fL (81-99); Monocyte# 0.61 X10^3/uL; Monocyte% 5.7 % (0-10); NRBC Flagged by Analyzer 0 % (0-5); Neutrophil % 70.6 % (47-70); Platelet Count 285 K/mm3 (150-450); RBC Distribution Width CV 16.1 % (11.6-14.6); RBC Distribution Width SD 49.4 fl (35.1-43.9); Red Blood Count 4.25 M/mm3 (4.2-5.4); White Blood Count 10.8 K/mm3 (4.4-11.0)
[2020-01-04] MEDS: Lactated Ringers 1,000 ML 125 ML IV (18:29)
[2020-01-04] MEDS: Betamethasone/Betamethasone 30 MG/5 ML Vial 12 MG IM (18:31)
--- NOTE | 2020-01-04 21:49 | OB.TRI.NOTE ---
History of Present Illness Was patient seen by the physician?: Yes Reason For Visit: EXTENDED MONITORING Date of Service: 01/04/20 Final GIA: 02/16/20 Gestational age: 33 Weeks and 6 Days Allergies No Known Allergies Allergy (Verified 10/28/19 10:32) - Pertinent Past Medical History Medical History: Past Medical History (Last Reviewed 10/28/19 @ 10:36 by ANTONIO Casey) Abdominal pain Cholelithiasis Nausea & vomiting Substance abuse Chronic cholecystitis with calculus (Resolved) Patient is status post cholecystectomy. Surgical History: Past Surgical History (Last Reviewed 10/28/19 @ 10:36 by Julieth Collier NP-C) S/P laparoscopic cholecystectomy 08/20 history wisdom teeth removal Laboratory Studies: Laboratory Tests 01/04/20 01/04/20 Range/Units 16:50 16:50 WBC 10.8 (4.4-11.0) K/mm3 RBC 4.25 (4.2-5.4) M/mm3 Hgb 11.6 L (12.0-15.0) g/dL Hct 35.8 L (37-47) % MCV 84.2 (81-99) fL MCH 27.3 (27.0-32.0) pg MCHC 32.4 (32-36) g/dL RDW Std Deviation 49.4 H (35.1-43.9) fl RDW Coeff of Colby 16.1 H (11.6-14.6) % Plt Count 285 (150-450) K/mm3 MPV 11.0 (6.2-12.0) fl Immature Gran % (Auto) 0.200 (0.0-0.9) % Neut % (Auto) 70.6 H (47-70) % Lymph % (Auto) 18.4 L (19-41) % [place] % (Auto) 5.7 (0-10) % Eos % (Auto) 4.7 (0-5) % Baso % (Auto) 0.4 (0-1) % Absolute Neuts (auto) 7.6 (2.0-7.7) X10^3/uL Absolute Lymphs (auto) 1.98 (0.83-4.51) X10^3/uL Nucleated RBC % 0 (0-5) % Blood Type A POSITIVE Antibody Screen NEGATIVE NST - FHR Rate Baby A Baseline: 120 Variability:: Moderate Accelerations:: 15 x 15 Decelerations:: Variable NST Reactive:: Yes Uterine Activity:: Irritability Impression/Plan Reactive NST for category 2 heart tracing in office (variables) BPP was 8/8 at [facility] office with MFM () Patient received BMZ & will get 2nd dose tomorrow D/c home Reviewed [facility] precautions F/u Friday for NST
== END 2020-01-04 21:40 | disposition home or self-care (01) ==
LOC: WPOUT 16:19 → OBT 16:20
PROVIDERS: PCP Nurse Practitioner Family; Referring Provider Obstetrics & Gynecology; Visit Provider Obstetrics & Gynecology
DX: O36.8330 Maternal care for abnormalities of the fetal heart rate or rhythm, third trimester, not applicable or unspecified (principal); Z3A.33 33 weeks gestation of pregnancy
CPT/HCPCS: 96360; 96361 ×3; 36415; 59025; 59050; 85025; 86850; 86900; 86901; 96372; 99218; J7120; G0378; J0702

== ENCOUNTER 2020-01-05 18:45 | Outpatient (CLI) | payer MEDICAID, SELFPAY ==
[2020-01-04 16:29] VITALS: BMI 41.1
[2020-01-05] MEDS: Betamethasone/Betamethasone 30 MG/5 ML Vial 12 MG IM (19:55)
--- NOTE | 2020-01-05 22:01 | OB.TRI.NOTE ---
History of Present Illness Date of Service: 01/05/20 Was patient seen by the physician?: No Reason For Visit: INJECTION Date of Service: 01/05/20 Final GIA: 02/16/20 Gestational age: 34 Weeks and 0 Days Allergies No Known Allergies Allergy (Verified 10/28/19 10:32) - Pertinent Past Medical History Medical History: Past Medical History (Last Reviewed 10/28/19 @ 10:36 by Julieth Collier NP-C) Abdominal pain Cholelithiasis Nausea & vomiting Substance abuse Chronic cholecystitis with calculus (Resolved) Patient is status post cholecystectomy. Surgical History: Past Surgical History (Last Reviewed 10/28/19 @ 10:36 by Julieth Collier NP-C) S/P laparoscopic cholecystectomy 08/20 history wisdom teeth removal Impression/Plan 24-year-old 1 para 0 at 34 weeks gestation, risk no a parous patient, opioid use disorder in , currently on Subutex. She was monitored yesterday and had some decelerations. Prolonged monitoring was reassuring and her biophysical profile was 8 out of 8. However, she was given a dose of betamethasone in case delivery becomes indicated. Second dose of betamethasone today. Follow-up in the office as scheduled or as needed.
== END 2020-01-05 19:57 | disposition home or self-care (01) ==
LOC: WPOUT 18:48 → OBT 18:49
PROVIDERS: PCP Nurse Practitioner Family; Referring Provider Obstetrics & Gynecology; Visit Provider Obstetrics & Gynecology
DX: O99.323 Drug use complicating pregnancy, third trimester (principal); F11.90 Opioid use, unspecified, uncomplicated; Z3A.34 34 weeks gestation of pregnancy
CPT/HCPCS: 96372; 99218; G0378; J0702

== ENCOUNTER 2020-01-25 19:14 | Inpatient (IN) | payer MEDICAID, SELFPAY ==
[2020-01-04 16:29] VITALS: BMI 41.1
[2020-01-25 19:35] VITALS: BP 118/77; PULSE 87; TEMP 36.2; O2SAT 95; O2SAT 96
[2020-01-25 19:57] VITALS: BMI 40.6
[2020-01-25] MEDS: Lactated Ringers 1,000 ML 50 ML IV (20:00)
[2020-01-25 20:13] LABS: Absolute Lymphocyte Count 2.41 X10^3/uL (0.83-4.51); Absolute Neutrophil Count 8.8 X10^3/uL (2.0-7.7); Basophil# 0.05 X10^3/uL; Basophil% 0.4 % (0-1); Eosinophil# 0.36 X10^3/uL; Eosinophils% 2.9 % (0-5); Hematocrit 36.3 % (37-47); Hemoglobin 11.7 g/dL (12.0-15.0); Lymphocyte # 2.41 X10^3/ul (4.0); Lymphocyte % 19.5 % (19-41); Mean Corp Hgb Conc 32.2 g/dL (32-36); Mean Corpuscular Hgb 26.8 pg (27.0-32.0); Mean Corpuscular Volume 83.1 fL (81-99); Mean Platelet Vol. 10.8 fl (6.2-12.0); Monocyte# 0.69 X10^3/uL; Monocyte% 5.6 % (0-10); NRBC Flagged by Analyzer 0 % (0-5); Neutrophil # 8.79 X10^3/uL (2.7-7.7); Neutrophil % 71.3 % (47-70); Platelet Count 229 K/mm3 (150-450); RBC Distribution Width CV 15.3 % (11.6-14.6); RBC Distribution Width SD 46.5 fl (35.1-43.9); Red Blood Count 4.37 M/mm3 (4.2-5.4); White Blood Count 12.3 K/mm3 (4.4-11.0)
[2020-01-25 21:17] VITALS: TEMP 36.2; O2SAT 95
[2020-01-25 21:18] VITALS: BP 120/67; PULSE 78
[2020-01-25] MEDS: Oxytocin 30 units/NS 500 ml 30 UNITS/500 ML IV.SOLN IV (21:24)
[2020-01-25 21:44] LABS: Amphetamine Urine VISTA NEGATIVE (<1000 ng/mL); Barbiturate Urine VISTA NEGATIVE (< 200 ng/mL); Benzodiazepine Urine VISTA NEGATIVE (< 200 ng/mL); Cocaine Urine VISTA NEGATIVE (< 300 ng/mL); Ecstacy Urine VISTA NEGATIVE (< 500 ng/mL); Methadone Urine VISTA NEGATIVE (< 300 ng/mL); PCP Urine VISTA NEGATIVE (< 25 ng/mL); THC Urine VISTA NEGATIVE (< 50 ng/mL); Vista UDS pH Range 5
[2020-01-25 22:01] VITALS: TEMP 36.9; O2SAT 97
[2020-01-25 22:02] VITALS: BP 125/56; PULSE 81
[2020-01-25 22:43] LABS: BUP Internal Control LINE = VALID (VALID); Buprenorphine Drug Screen Positive (<10 ng/mL)
[2020-01-25 23:14] VITALS: BP 120/64; PULSE 75; TEMP 36.7; O2SAT 96
[2020-01-26] VITALS (54 sets, daily range): BP systolic 84–121; BP diastolic 50–78; PULSE 66–113; RESP 16–18; TEMP 36.2–37.1; O2SAT 88–98
[2020-01-26] MEDS: Lactated Ringers 500 ML 999 ML IV ×2 (02:34→09:44)
[2020-01-26] MEDS: fentaNYL-bupivacaine (epidural) 100 ML BAG EPIDURAL ×2 (03:33→08:00)
--- NOTE | 2020-01-26 07:02 | NURSING ---
After arrival to , patient's significant other and FOB, Tyrel, made multiple trips to the bathroom and remained there for an extended period of time. FOB also made multiple trips outside to smoke. FOB never returned after 0000. Patient states this morning that FOB will not be returning to hospital for remainder of stay and that her mother is coming in to be her new support person.
[2020-01-26] MEDS: Lactated Ringers 1,000 ML 200 ML IV (07:07)
--- NOTE | 2020-01-26 08:09 | HP.PCM_ITS ---
History Date of Admission: 01/25/20 Final GIA: 02/16/20 Gestational age: 37 Weeks and 0 Days History of this : This is a 24 year-old, G 1P0 @ 37 weeks for IOL recommend by [facility] for maternal drug use, Obesity Medical History: Medical History (Last Reviewed 10/28/19 @ 10:36 by Julieth Collier NP-C) Abdominal pain R10.9 Cholelithiasis K80.20 Nausea & vomiting R11.2 Substance abuse F19.10 Chronic cholecystitis with calculus (Resolved) K80.10 Patient is status post cholecystectomy. Surgical History: Surgical History (Last Reviewed 10/28/19 @ 10:36 by ANTONIO Casey) S/P laparoscopic cholecystectomy Z90.49 08/20 history wisdom teeth removal Allergies No Known Allergies Allergy (Verified 01/25/20 19:54) Home Medications: Home Medications Folic Acid 0.8 mg PO DAILY 10/11/19 Vits [Prenatabs FA ] 1 tab PO DAILY 10/11/19 Buprenorphine HCl/Naloxone HCl [Suboxone 8 mg-2 mg Sl Film] 1 ea SL BID 01/05/20 Ferrous Sulfate 325 mg PO DAILY 01/05/20 Ondansetron HCl [Zofran] 4 mg PO DAILY 01/05/20 Smoking Status: Current every day smoker Substance Use Type: Heroin, Marijuana, Methamphetamine, Opiates Number of Fetus(es): 1 History Past Pregnancies: Past Pregnancies Delivery Date Name GA/ Weeks Outcome Route Wt Sex Labor Length Anesthesia Delivery Location Provider FOB Expected Delivery Method: Spontaneous Vaginal Physical Exam Vitals: Vital Signs Temp Pulse BP Pulse Ox 98.5 F 77 100/55 L 97 01/26/20 07:24 01/26/20 07:24 01/26/20 07:24 01/26/20 07:24 General: Alert, Oriented x3 Abdomen: Soft, Non Tender, Gravid Neurological: Cranial nerves II-XII grossly intact ACTUARIAL CLERK: Normal external genitalia Estimated gestational size: Appropriate for gestational size Presentation: Cephalic Cervix Dilation (cm): 6 Station: -2 Effacement (%): 80 Assessment/Plan All Active Problems (Last Reviewed 10/28/19 @ 10:36 by Julieth Collier NP-[place]) PNA (pneumonia) (Acute) Hyponatremia (Acute) Abnormal LFTs (Acute) Normochromic normocytic anemia (Acute) Pleurisy (Acute) MSSA bacteremia (Acute) Chronic cholecystitis with calculus (Resolved) This is a 24 year-old, @ 37 weeks- IOL for substance abuse, obesity admit to L&D monitor FHR/TOCO anticipate Pitocin for IOL Continue Subutex epidural if requested
[2020-01-26] MEDS: BUPRENORPHINE HCL 8 MG TAB.SUBL SL (08:19)
[2020-01-26] MEDS: Ondansetron 4 MG/2 ML Vial IV (09:17)
[2020-01-26] MEDS: 0.9% Saline Lock 10 ML Syringe IV ×2 (09:17→15:00)
[2020-01-26] MEDS: Oxytocin 30 units/NS 500 ml 30 UNITS/500 ML IV.SOLN 334 UNITS IV (11:08)
--- NOTE | 2020-01-26 11:18 | OP.PCM_ITS ---
Vaginal Delivery Maternal Presentation: Medically Indicated Induction Method of Induction: Pitocin Medical Reason for Induction: - - Maternal drug use, obesity, decelerations Amniotic Membrane Rupture Type: Spontaneous Amniotic Fluid Description: Clear Final GIA: 02/16/20 Final GIA Source: [place] <20 weeks Gestational age: 37 Weeks and 0 Days Date of Procedure: 01/26/20 Pre-Operative Diagnosis: early term gestation Post-Operative Diagnosis: same, live male Surgery/ Procedure Performed: Spontaneous Vaginal Delivery Type of Anesthesia: Epidural Description of Procedure: of a live male infant born without complication. Good maternal pushing efforts delivered the head with gentle downward traction and legs in the flexed position 's anterior shoulder delivered followed by the rest the in gonzalez's body. was placed on the mother's chest vigorous delayed cord clamping was performed and then the infant was taken to the [facility] for evaluation. Placenta was delivered without complication and intact. Second- degree perineal laceration was appreciated. This was repaired using 2-0 Vicryl and a 3-0 rapide suture. Presentation: Vertex Placental Delivery Description: Spontaneous Placenta Disposition: [facility] Cord Vessel Description: 3 Vessels Nuchal Cord Compression: Without compression Cord Entanglement: None Drain: Limon to straight drain Estimated Blood Loss: 250 A gender: Male (1 minute): 8 (5 minute): 9 Episiotomy Description: None Laceration: Perineal Extension/lac, 2nd degree Medications given after delivery: IV Pitocin Complications: None
[2020-01-26] MEDS: Buprenorphine HCl 2 MG TAB.SUBL 4 MG SL (21:39)
[2020-01-27 03:25] VITALS: BP 102/58; PULSE 71; RESP 14; TEMP 36.3
[2020-01-27 07:54] VITALS: BP 92/59; PULSE 55; RESP 16; TEMP 36.2
[2020-01-27] MEDS: BUPRENORPHINE HCL 8 MG TAB.SUBL SL (08:17)
--- NOTE | 2020-01-27 08:29 | PN.OBGYN_ITS ---
Patient Problems: Active and Suspected Problems (Last Reviewed 10/28/19 @ 10:36 by ANTONIO Casey) Vaginal delivery (Acute) Subjective: Patient seen at bedside, doing well. Reports pain controlled and not using any pain medications. Lochia mild, with some difficulty but consulted with . Voiding and passing flatus. - Physical Exam Vitals/I&O's: Vital Signs Temp Pulse Resp BP Pulse Ox 97.1 F L 55 L 16 92/59 L 96 01/27/20 07:54 01/27/20 07:54 01/27/20 07:54 01/27/20 07:54 01/26/20 16:09 Oxygen Delivery Method Room Air Weight: 237 lb Body Mass Index (BMI) 40.6 Intake and Output for Last 24 Hours 01/25/20 01/26/20 01/27/20 23:59 23:59 23:59 Intake Total 6.10 / 210.50 3947.60 / 3947.60 Output Total 1150 / 1150 Balance 6.10 / 210.50 2797.60 / 2797.60 General: Alert, Cooperative Lungs: Normal air movement Cardiovascular: Regular rate Abdomen: Soft, Non Tender, Obese Skin: No rashes Neurological: Cranial nerves II-XII grossly intact Psych/Mental Status: Normal Affect, Appropriate Current Medications Acetaminophen (Tylenol) 1,000 mg PO Q8H PRN PRN PRN Reason: Pain Score 1-3/10 Bisacodyl (Dulcolax) 10 mg RECTAL UD PRN PRN Reason: If no BM Buprenorphine HCl (Buprenorphine Hcl) 8 mg SL DAILY@0800 [facility] Last Admin: 01/27/20 08:17 Dose: 8 mg Documented by: Buprenorphine HCl (Buprenorphine Hcl) 4 mg SL DAILY@1700 [facility] Dibucaine (Dibucaine) 1 applic TOPICAL TID PRN PRN; Protocol PRN Reason: Discomfort Hydrocortisone (Hytone) 1 applic TOPICAL TID PRN PRN; Protocol PRN Reason: Discomfort Ibuprofen (Motrin) 600 mg PO Q6H PRN PRN PRN Reason: Pain Score 1-3/10 Methylergonovine Maleate (Methergine) 0.2 mg IM X1 PRN PRN Reason: Excess bleeding/uterine atony Ondansetron HCl (Zofran) 4 mg IV Q4H PRN PRN PRN Reason: Nausea Senna/Docusate Sodium (Senokot-S, Rosa-Colace) 1 - 2 tablet PO DAILY PRN PRN PRN Reason: Constipation Simethicone (Mylicon) 80 mg PO PCHS PRN PRN Reason: Indigestion/Stomach pain Sodium Chloride () 5 - 15 ml IV UD PRN PRN Reason: SALINE FLUSH Last Admin: 01/26/20 15:00 Dose: 10 ml Documented by: Medical Necessity - Tobacco Use Smoking Status: Current every day smoker Assessment/Plan All Active Problems (Last Reviewed 10/28/19 @ 10:36 by Julieth Collier, SHELLFISH DREDGE OPERATOR-C) PNA (pneumonia) (Acute) Hyponatremia (Acute) Abnormal LFTs (Acute) Normochromic normocytic anemia (Acute) Pleurisy (Acute) MSSA bacteremia (Acute) Vaginal delivery (Acute) Chronic cholecystitis with calculus (Resolved) Assessment/Plan PPD #1 Routine care Pain management Continues to take Subutex PO MECHELLE scoring
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
[2020-01-27 14:45] VITALS: BP 105/56; PULSE 75; RESP 16; TEMP 36.6
[2020-01-27] MEDS: Buprenorphine HCl 2 MG TAB.SUBL 4 MG SL (17:08)
[2020-01-27 20:30] VITALS: BP 114/56; PULSE 79; RESP 16; TEMP 36.2
[2020-01-28 02:50] VITALS: BP 112/45; PULSE 55; RESP 16; TEMP 36.6
--- NOTE | 2020-01-28 04:30 | NURSING ---
Pt extremely drowsy. Difficult to arouse. VSS. Bleeding appropriate. This RN expressed to pt that she was concerned with how sleepy she was. Pt said she just hasn't slept well. Pt immediately falls back to sleep. RN continues to ask pt questions and pt does not respond and is back asleep. RN asked pt if she took anything that would make her tired, pt responded no. RN tells pt that she needs to wake up and console baby if upset under bili lights, no response from pt. RN concerned for baby's saftey. RN informed pt that she will take babe to nursery to watch him there. Pt responds with okay. Will continue to monitor.
[2020-01-28 08:00] VITALS: BP 110/69; PULSE 73; RESP 18; TEMP 36.3
--- NOTE | 2020-01-28 08:17 | PN.OBGYN_ITS ---
Patient Problems: Active and Suspected Problems (Last Reviewed 10/28/19 @ 10:36 by ANTONIO Casey) Vaginal delivery (Acute) Subjective: Patient seen at bedside. Patient resting well with no pain. Lochia mild. Voiding and passing flatus. - Physical Exam Vitals/I&O's: Vital Signs Temp Pulse Resp BP Pulse Ox 97.8 F 55 L 16 112/45 L 96 01/28/20 02:50 01/28/20 02:50 01/28/20 02:50 01/28/20 02:50 01/26/20 16:09 Oxygen Delivery Method Room Air Weight: 237 lb Body Mass Index (BMI) 40.6 Intake and Output for Last 24 Hours 01/26/20 01/27/20 01/28/20 23:59 23:59 23:59 Intake Total 3947.60 / 3947.60 Output Total 1150 / 1150 Balance 2797.60 / 2797.60 General: Alert Lungs: Normal air movement Cardiovascular: Regular rate Abdomen: Soft, Non Tender, Obese Musculoskeletal: No Tenderness to Palpation of Joints or Extremities, - - Ambulating off unit at times Neurological: Cranial nerves II-XII grossly intact Psych/Mental Status: Appropriate, Flat Affect Current Medications Acetaminophen (Tylenol) 1,000 mg PO Q8H PRN PRN PRN Reason: Pain Score 1-3/10 Bisacodyl (Dulcolax) 10 mg RECTAL UD PRN PRN Reason: If no BM Buprenorphine HCl (Buprenorphine Hcl) 8 mg SL DAILY@0800 [facility] Last Admin: 01/27/20 08:17 Dose: 8 mg Documented by: Buprenorphine HCl (Buprenorphine Hcl) 4 mg SL DAILY@1700 [facility] Last Admin: 01/27/20 17:08 Dose: 4 mg Documented by: Dibucaine (Dibucaine) 1 applic TOPICAL TID PRN PRN; Protocol PRN Reason: Discomfort Hydrocortisone (Hytone) 1 applic TOPICAL TID PRN PRN; Protocol PRN Reason: Discomfort Ibuprofen (Motrin) 600 mg PO Q6H PRN PRN PRN Reason: Pain Score 1-3/10 Methylergonovine Maleate (Methergine) 0.2 mg IM X1 PRN PRN Reason: Excess bleeding/uterine atony Ondansetron HCl (Zofran) 4 mg IV Q4H PRN PRN PRN Reason: Nausea Senna/Docusate Sodium (Senokot-S, Rosa-Colace) 1 - 2 tablet PO DAILY PRN PRN PRN Reason: Constipation Simethicone (Mylicon) 80 mg PO PCHS PRN PRN Reason: Indigestion/Stomach pain Sodium Chloride () 5 - 15 ml IV UD PRN PRN Reason: SALINE FLUSH Last Admin: 01/26/20 15:00 Dose: 10 ml Documented by: Medical Necessity - Tobacco Use Smoking Status: Current every day smoker Assessment/Plan All Active Problems (Last Reviewed 10/28/19 @ 10:36 by Julieth Collier, GARDEN EQUIPMENT MECHANIC-C) Vaginal delivery (Acute) PNA (pneumonia) (Acute) Hyponatremia (Acute) Abnormal LFTs (Acute) Normochromic normocytic anemia (Acute) Pleurisy (Acute) MSSA bacteremia (Acute) Chronic cholecystitis with calculus (Resolved) PP #2, doing well Routine care Discharge home today Follow up in 2 weeks for virtual pp visit
--- NOTE | 2020-01-28 08:23 | DCINST_ITS ---
Discharge Diet: No Restrictions Discharge Activity: Return to Normal Activity May resume sexual activity in: 6-8 weeks Lifting Restrictions: 25 lbs Additional Instructions: If you experience any of the following, contact your healthcare provider. * Bleeding that soaks a pad every hour for 2 hours * Fever 100.4 or higher * Unrelieved incision or abdominal pain * Swelling, redness, discharge or bleeding from your incision or episiotomy site * Your incision begins to separate * Problems urinating (including inability to urinate or burning while urinating). * Visual changes * Severe headache * Flu-like symptoms * Pain or redness in one of both of your breasts * Pain, warmth, tenderness or swelling in your legs, especially the calf area * Frequent nausea and vomiting * Symptoms of depression or anxiety If you experience any of the following, call 911 or go to the nearest Emergency Room. * Chest pain * Problems breathing * Seizure activity * Partial or complete paralysis of a body part, slurred speech, weakness or drooping of the face, or a sudden inability to walk or hold your balance Allergies/Adverse Reactions: Allergies No Known Allergies Allergy (Verified 01/25/20 19:54) Medications to take at Discharge Folic Acid 0.8 mg PO DAILY 10/11/19 Vits [Prenatabs FA ] 1 tab PO DAILY 10/11/19 Buprenorphine HCl/Naloxone HCl [Suboxone 8 mg-2 mg Sl Film] 1 ea SL BID 01/05/20 Ferrous Sulfate 325 mg PO DAILY 01/05/20 Ondansetron HCl [Zofran] 4 mg PO DAILY 01/05/20 Please Follow Up With: lilli When: 2 weeks for post virtual visit Primary Care Physician: Julissa Dominguez, DENTAL LABORATORY ASSISTANT-C [Primary Care Provider] - Test Results: Test results from this visit will be discussed in further detail at your follow- up appointment, if applicable.
--- NOTE | 2020-01-28 08:23 | PCM.DCVAG ---
Discharge Diet: No Restrictions Discharge Activity: Return to Normal Activity May resume sexual activity in: 6-8 weeks Lifting Restrictions: 25 lbs Additional Instructions: If you experience any of the following, contact your healthcare provider. Bleeding that soaks a pad every hour for 2 hours Fever 100.4 or higher Unrelieved incision or abdominal pain Swelling, redness, discharge or bleeding from your incision or episiotomy site Your incision begins to separate Problems urinating (including inability to urinate or burning while urinating). Visual changes Severe headache Flu-like symptoms Pain or redness in one of both of your breasts Pain, warmth, tenderness or swelling in your legs, especially the calf area Frequent nausea and vomiting Symptoms of depression or anxiety If you experience any of the following, call 911 or go to the nearest Emergency Room. Chest pain Problems breathing Seizure activity Partial or complete paralysis of a body part, slurred speech, weakness or drooping of the face, or a sudden inability to walk or hold your balance Allergies/Adverse Reactions: Allergies No Known Allergies Allergy (Verified 01/25/20 19:54) Medications to take at Discharge Folic Acid 0.8 mg PO DAILY 10/11/19 Vits [Prenatabs FA ] 1 tab PO DAILY 10/11/19 Buprenorphine HCl/Naloxone HCl [Suboxone 8 mg-2 mg Sl Film] 1 ea SL BID 01/05/20 Ferrous Sulfate 325 mg PO DAILY 01/05/20 Ondansetron HCl [Zofran] 4 mg PO DAILY 01/05/20 Please Follow Up With: lilli When: 2 weeks for post virtual visit Primary Care Physician: Julissa Dominguez BOOK AGENT-C [Primary Care Provider] - Test Results: Test results from this visit will be discussed in further detail at your follow-up appointment, if applicable.
[2020-01-28] MEDS: BUPRENORPHINE HCL 8 MG TAB.SUBL SL (09:05)
[2020-01-28 14:00] VITALS: BP 115/74; PULSE 73; RESP 16; TEMP 36.3
--- NOTE | 2020-01-28 15:39 | NURSING ---
Upon entering room, pt was in the bathroom and baby was found lying on the pt's bed propped on boppie pillow in [facility]. Reeducated mom on safe sleep and placed baby in crib. Pt had inquired earlier about JENNIFER Sarah obtaining a wristband and allowing him to come into hospital. This RN discussed with charge nurse and family welfare social work professor. Decision was made to not make an exception and allow 2 support visitors due to current visitor restrictions. Explain to pt safety policy for wristbands and for current COVID-19 situation. Pt appeared frustrated with decision, but agreed to comply.
--- NOTE | 2020-01-28 16:39 | CASEMGMT ---
Social Work Labor and Delivery Mother of baby (MOB) and infant's records reviewed. Noted and appreciated nursing documentation regarding mother/infant interactions. MOB is slated for discharge today but to remain on hotel status while baby is present for MECHELLE scoring. Confirmed with hydraulic plumber helper that baby to be monitored for 7 days for MECHELLE, will be in the hospital through the weekend. Did confer with MOB's RN and broker in charge about MOB's inquiry regarding to have father of baby banded for visits. Visitor restrictions are in place and reduced to only one (and the same) visitor for entirety of hospital stay, which is in place due to COVID-[address] for one support person only and not able to be switched in and out. From prior conversation with MOB, the Father of baby was present during part of the labor process, but then was taken to prison prior to the delivery of baby. MOB's mother was then called and presented for delivery. MOB's mother was given the one allowed support band. Plan: MOB is being discharged today. Will follow up with MOB early next week to check and see how things are going (future notes will be included in baby's delivery record). Revisit with MOB about having a Help [facility] referral. Also plan to call [facility] on Friday01.31.2020, which MOB is aware of pending referral. -CATHERINE Rodriguez, COMPUTING ARCHITECT
[2020-01-28] MEDS: Buprenorphine HCl 2 MG TAB.SUBL 4 MG SL (17:08)
[2020-01-28 18:00] VITALS: BP 119/78; PULSE 72; RESP 18; TEMP 36.7
--- NOTE | 2020-01-31 15:30 | CASEMGMT ---
Social Work Labor and Delivery Patient/mother of baby (MOB) was discharged as a patient on 01.28.2020. Referral to [facility] this date, 01.31.2020, regarding substance exposed infant. Spoke with Qiana Copeland in the intake department. Brief maternal and histories provided. Any further involvement will be noted in the babies chart ([id number]), which is attached to MOB's current visit encounter. -CATHERINE Rodriguez, IT OPERATIONS ANALYST
== END 2020-01-28 18:40 | disposition home or self-care (01) | DRG 560 ==
PROVIDERS: Obstetrics & Gynecology; Admitting Provider Obstetrics & Gynecology; PCP Nurse Practitioner Family; Referring Provider Obstetrics & Gynecology; Visit Provider Obstetrics & Gynecology
DX: O99.214 Obesity complicating childbirth (principal); E66.01 Morbid (severe) obesity due to excess calories; O76 Abnormality in fetal heart rate and rhythm complicating labor and delivery; O70.1 Second degree perineal laceration during delivery; O98.42 Viral hepatitis complicating childbirth; B15.9 Hepatitis A without hepatic coma; O69.81X0 Labor and delivery complicated by cord around neck, without compression, not applicable or unspecified; F11.11 Opioid abuse, in remission; O99.334 Smoking (tobacco) complicating childbirth; F17.200 Nicotine dependence, unspecified, uncomplicated; Z79.899 Other long term (current) drug therapy; Z87.01 Personal history of pneumonia (recurrent); Z3A.37 37 weeks gestation of pregnancy; Z37.0 Single live birth
CPT/HCPCS: 59025; 59050; 80307; 85025; 86850; 86900; 86901; 99218; J7120; A4216; G0378; J2405

== ENCOUNTER → 2020-12-01 08:49 | Outpatient (CLI) | payer MEDICAID, SELFPAY ==
[2020-12-01 09:45] LABS: Absolute Lymphocyte Count 2.64 X10^3/uL (0.83-4.51); Absolute Neutrophil Count 4.6 X10^3/uL (2.0-7.7); Basophil# 0.06 X10^3/uL; Basophil% 0.7 % (0-1); Eosinophil# 0.91 X10^3/uL; Eosinophils% 10.5 % (0-5); Hematocrit 42.7 % (37-47); Hemoglobin 13.6 g/dL (12.0-15.0); Lymphocyte # 2.64 X10^3/ul (4.0); Lymphocyte % 30.4 % (19-41); Mean Corp Hgb Conc 31.9 g/dL (32-36); Mean Corpuscular Hgb 27.4 pg (27.0-32.0); Mean Corpuscular Volume 85.9 fL (81-99); Mean Platelet Vol. 9.9 fl (6.2-12.0); Monocyte# 0.48 X10^3/uL; Monocyte% 5.5 % (0-10); NRBC Flagged by Analyzer 0 % (0-5); Neutrophil # 4.56 X10^3/uL (2.7-7.7); Neutrophil % 52.6 % (47-70); Platelet Count 289 K/mm3 (150-450); RBC Distribution Width CV 13.3 % (11.6-14.6); RBC Distribution Width SD 41.6 fl (35.1-43.9); Red Blood Count 4.97 M/mm3 (4.2-5.4); White Blood Count 8.7 K/mm3 (4.4-11.0)
[2020-12-01 09:51] LABS: Amphetamine Urine VISTA NEGATIVE (<1000 ng/mL); Barbiturate Urine VISTA NEGATIVE (< 200 ng/mL); Benzodiazepine Urine VISTA NEGATIVE (< 200 ng/mL); Cocaine Urine VISTA NEGATIVE (< 300 ng/mL); Ecstacy Urine VISTA NEGATIVE (< 500 ng/mL); Methadone Urine VISTA NEGATIVE (< 300 ng/mL); PCP Urine VISTA NEGATIVE (< 25 ng/mL); THC Urine VISTA NEGATIVE (< 50 ng/mL); Vista UDS pH Range 5
[2020-12-01 10:03] LABS: AST(SGOT) 57 U/L (15-37); Alanine Aminotransfer ALT/SGPT 165 U/L (13-56); Albumin, Serum 3.4 g/dL (3.2-5.0); Alkaline Phosphatase 134 U/L (45-117); Bilirubin, Direct < 0.05 mg/dL (0.00-0.30); Globulin 4.6 g/dL (2.2-4.2)
[2020-12-03 14:18] LABS: HIV-1 RNA by PCR, Quant. < 20 copies/mL (.)
[2020-12-04 16:08] LABS: HCV Quant. RNA PCR 450000 IU/mL (.); HEPATITIS B SURFACE AG Negative (Negative); Hepatitis B Core AB IgM Negative (Negative); Hepatitis B Core Ab Total Negative (Negative); Hepatitis Be Ab Negative (Negative); Hepatitis Be Ag Negative (Negative)
[2020-12-05 12:35] LABS: HCV log 10 5.653 (.)
== END ==
PROVIDERS: PCP Nurse Practitioner Family; Referring Provider Internal Medicine Infectious Disease; Visit Provider Internal Medicine Infectious Disease
DX: B18.2 Chronic viral hepatitis C (principal)
CPT/HCPCS: 36415; 80076; 80307; 85025; 86705; 86707; 87340; 87350; 87522; 87536

== ENCOUNTER → 2021-01-04 10:12 | Outpatient (CLI) | payer MEDICAID, SELFPAY ==
[2021-01-04 10:47] LABS: Prothrombin Time (Protime)PT. 12.5 SECONDS (11.7-14.9)
[2021-01-04 13:53] LABS: Hepatitis C Antibody REACTIVE (Nonreactive)
== END ==
PROVIDERS: PCP Nurse Practitioner Family; Visit Provider Nurse Practitioner Adult Health
DX: B18.2 Chronic viral hepatitis C (principal)
CPT/HCPCS: 36415; 85610; 86803

== ENCOUNTER → 2022-11-21 | Outpatient (CLI) | payer MEDICAID, SELFPAY ==
[2022-11-21 17:19] LABS: Absolute Lymphocyte Count 4.05 X10^3/uL (0.83-4.51); Absolute Neutrophil Count 5.8 X10^3/uL (2.0-7.7); Basophil# 0.06 X10^3/uL; Basophil% 0.5 % (0-1); Eosinophil# 0.54 X10^3/uL; Eosinophils% 4.9 % (0-5); Hematocrit 40.5 % (37-47); Hemoglobin 13.7 g/dL (12.0-15.0); Lymphocyte # 4.05 X10^3/ul (0.83-4.51); Lymphocyte % 36.7 % (19-41); Mean Corp Hgb Conc 33.8 g/dL (32-36); Mean Corpuscular Hgb 29.2 pg (27.0-32.0); Mean Corpuscular Volume 86.4 fL (81-99); Mean Platelet Vol. 10.1 fl (6.2-12.0); Monocyte# 0.57 X10^3/uL; Monocyte% 5.2 % (0-10); NRBC Flagged by Analyzer 0 % (0-5); Neutrophil # 5.81 X10^3/uL (2.7-7.7); Neutrophil % 52.5 % (47-70); Platelet Count 339 K/mm3 (150-450); RBC Distribution Width CV 13.8 % (11.6-14.6); RBC Distribution Width SD 43.6 fl (35.1-43.9); Red Blood Count 4.69 M/mm3 (4.2-5.4); White Blood Count 11.1 K/mm3 (4.4-11.0)
[2022-11-21 18:54] LABS: ALB/GLOB Ratio 0.9 RATIO (0.9-2.4); AST(SGOT) 11 U/L (15-37); Alanine Aminotransfer ALT/SGPT 28 U/L (13-56); Albumin, Serum 3.6 g/dL (3.2-5.0); Alkaline Phosphatase 66 U/L (45-117); Anion Gap 8 (5-15); BUN 11 mg/dL (7-18); BUN/Creat Ratio 16.2 RATIO (10-20); Calcium,Total 8.7 mg/dL (8.5-10.1); Chloride 106 mmol/L (98-107); Creatinine, Serum 0.68 mg/dL (0.55-1.02); EST Glomerular Filtration Rate 110 mL/min (>60); Est Glom Filt Rate - Afr Amer 133 mL/min (>60); Globulin 4.1 g/dL (2.2-4.2); Glucose 96 mg/dL (74-106); Potassium 3.5 mmol/L (3.5-5.1); Protein, Total 7.7 g/dL (6.4-8.2); Sodium Level 139 mmol/L (136-145); T4 Free Direct 1.15 ng/dL (0.76-1.46); Thyroid Stim Hormone (TSH) 0.99 uIU/mL (0.358-3.74)
[2022-11-21 19:16] LABS: HIV - WCH Non-Reactive (Nonreactive); Hepatitis B Surface Antibody Reactive; Hepatitis B Surface Antigen Non-Reactive (Nonreactive)
[2022-11-23 21:06] LABS: HCV Quant. RNA PCR HCV Not Detected IU/mL (.)
[2022-11-24 09:20] LABS: Hepatitis A AB, Total Positive (Negative)
== END | disposition home or self-care (01) ==
LOC: LAB 16:05
PROVIDERS: Referring Provider Registered Nurse; Visit Provider Registered Nurse
DX: F11.20 Opioid dependence, uncomplicated (principal)
CPT/HCPCS: 36415; 80053; 84439; 84443; 85025; 86703; 86706; 86708; 87340; 87522

== ENCOUNTER 2025-04-13 18:44 | Emergency (ER) | payer MEDICAID, SELFPAY ==
[2025-04-13 18:45] VITALS: BP 151/74; PULSE 103; RESP 18; TEMP 36.9; O2SAT 95; BMI 40.9
--- NOTE | 2025-04-13 19:13 | CT_ITS ---
PROCEDURE: BRAIN/HEAD WITHOUT CONTRAST 04/13/2025 REASON FOR EXAM: INJURY/PAIN TECHNIQUE: Head CT without intravenous contrast. Coronal and Sagittal reconstruction series were provided. One or more dose reduction techniques were used (e.g., Automated exposure control, adjustment of the mA and/or kV according to patient size, use of iterative reconstruction technique. RADIATION DOSE SUMMARY: DLP: 830 mGycm COMPARISON: None FINDINGS: There is no acute infarct, intracranial hemorrhage, or mass effect. There is no hydrocephalus or significant midline shift. No acute, depressed calvarial fractures. No large scalp hematomas. Scattered tiny scalp sebaceous cysts. CT/Brain/Head without Contrast IMPRESSION: No acute intracranial process. Reading Location: [id number]
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
[2025-04-13 21:00] VITALS: BP 154/78
[2025-04-13 21:07] VITALS: BP 154/78; PULSE 100; RESP 16; TEMP 36.8; O2SAT 100
== END 2025-04-13 21:07 | disposition home or self-care (01) ==
PROVIDERS: Emergency Provider Emergency Medicine; Referring Provider Emergency Medicine; Visit Provider Emergency Medicine
DX: S00.83XA Contusion of other part of head, initial encounter (principal); Y92.410 Unspecified street and highway as the place of occurrence of the external cause; F17.210 Nicotine dependence, cigarettes, uncomplicated; F12.90 Cannabis use, unspecified, uncomplicated; Z90.49 Acquired absence of other specified parts of digestive tract; V47.5XXA Car driver injured in collision with fixed or stationary object in traffic accident, initial encounter
CPT/HCPCS: 70450; 99284